=== PATIENT | female | born 1950 | race Caucasian/White ===

== ENCOUNTER 2019-07-14 07:00 | Inpatient (IN) | payer MEDICARE, SELFPAY ==
[2019-07-14] VITALS (29 sets, daily range): BP systolic 116–230; BP diastolic 68–191; PULSE 67–104; RESP 14–26; TEMP 36.3–36.8; O2SAT 76–99
--- NOTE | ~2019-07-14 | CT_ITS ---
EXAMINATION: CTA chest PE protocol DATE: 07/14/2019 09:56 INDICATION: Shortness of breath. Hypoxia. TECHNIQUE: Computed tomography angiography (CTA) of the chest was performed with 100 mL Omnipaque-350 intravenous contrast timed to evaluate the pulmonary arteries. Coronal maximum intensity projection 3D-reconstructions were created by the technologist. Automated exposure control and iterative reconst ruction technique were employed. Exam dose: 1026.94 mGy-cm total exam DLP. COMPARISON: 07/12/2019 portable AP chest FINDINGS: There is moderate opacification the pulmonary arteries and no evidence of pulmonary embolis m. No thoracic aortic aneurysm or dissection. Borderline heart size. No pericardial or pleural effusion. No hilar or mediastinal mass lesion or lymphadenopathy. There is mild atelectasis in the lingula and both lower lobes. Postoperative changes of the stomach. Status post cholecystectomy. Diffuse idiopathic skeletal hyperostosis of the thoracic spine. IMPRESSION: No evidence of pulmonary embolism Mild atelectasis in the lower lung zones Reviewed, dictated and finalized at [facility]. Reviewed, dictated and finalized at [facility].
--- NOTE | ~2019-07-14 | XR_ITS ---
XR chest 1V portable DATE: 07/14/2019 08:04 INDICATION: Respiratory failure TECHNIQUE: Portable upright AP chest on 07/14/2019 at 0800 hours COMPARISON: None FINDINGS: There may be mild infiltrate or atelectasis in the lower lung zones; otherwise no pulmonary infiltrate or consolidation, pleural effusion or pulmonary vascular congestion or pneumothorax is ev ident. Heart size is not optimally evaluated on AP projection. Diffuse idiopathic skeletal hyperostosis of the thoracic spine. IMPRESSION: Mild infiltrate or atelectasis may be present in the lower lung zones; limited portable e xamination Reviewed, dictated and finalized at location [facility]. IMPRESSION: Mild infiltrate or atelectasis may be present in the lower lung zon es; limited portable examination
--- NOTE | ~2019-07-14 | XR_ITS ---
XR chest 2V DATE: 07/16/2019 13:50 INDICATION: Hypoxia, acute respiratory failure TECHNIQUE: PA and lateral views COMPARISON: 07/14/2019 portable AP chest 07/14/2019 CT pulmonary scan FINDINGS: Borderline heart size. There is infiltrate, atelectasis and/or scarring of the middle lobe. No pulmonary infiltrate or consolidation, pulmonary vascular congestion or pleural effusion or pneumo thorax. Postoperative changes in the left upper quadrant. There is diffuse idiopathic skeletal hyperostosis of the thoracic spine. IMPRESSION: Mild infiltrate, atelectasis and/or scarring of middle lobe; otherwise no active pulmonar y disease or significant change since 07/14/2019 Reviewed, dictated and finalized at location [facility]. IMPRESSION: Mild infiltrate, atelectasis and/or scarring of middle lobe; otherw ise no active pulmonary disease or significant change since 07/14/2019
--- NOTE | 2019-07-14 07:14 | ECG_ITS ---
Measurements Intervals [place] Rate: 86 P: 54 OH: 194 QRS: -40 QRSD: 98 T: 74 QT: 327 QTc: 392 Interpretive Statements SINUS RHYTHM WITH SINUS ARRHYTHMIA LEFT AXIS DEVIATION DELAYED PRECORDIAL R/S TRANSITION VOLTAGE CRITERIA FOR LVH BORDERLINE ST-T WAVE ABNORMALITY- LATERAL LEADS BASELINE ARTIFACT- II, III, AVL, AVF BORDERLINE ECG Electronically Signed On 07-14-2019 9:34:29 CDT by Tk Ray D.O.
--- NOTE | 2019-07-14 07:16 | ED.SOB ---
HPI - SOB/Dyspnea General Chief Complaint: Shortness of Breath/Dyspnea Stated Complaint: SOB Time Seen by Provider: 07/14/19 07:03 Source: patient Mode of arrival: ambulatory Limitations: no limitations History of Present Illness HPI Narrative: 68 yo female with h/o HTN, DM who presents with c/o cough and sob. PAtient states she has been having gradually worsening sob over the past 1.5 weeks. Prior to this she reports she had cold and cough symptoms. She has been unable to sleep due to worsening sob and cough with laying flat. She has been having nausea and vomiting for the past 2 days. She also reports constant pain across her chest that is worse with cough. She reports she had pneumonia 2 years ago, and it presented in a similar fashion. She does not know if she has fever but she reports sweating. She denies history of heart disease, asthma or COPD. She is 76% on room air on arrival to ER. MD elicited complaint: shortness of breath and cough Pertinent past history: pneumonia Onset (ago): week(s) Context: recent illness Timing: progressively worsening Exacerbating factors: lying flat Associated symptoms: chest pain, cough, wheezing, diaphoresis, nausea/vomiting and chest congestion Related Data Home Medications Medication Instructions Recorded Confirmed valsartan 160 mg PO BID 07/14/19 07/14/19 Allergies Allergy/AdvReac Type Severity Reaction Status Date / Time codeine Allergy Unknown Swelling Verified 07/14/19 07:36 of Lip/Tongue/Throat Review of Systems Review of Systems: All systems reviewed & are unremarkable except as noted in HPI and below Constitutional: Constitutional: Reports chills, Reports excessive sweating, Reports fatigue and Reports poor appetite ENT: Reports nasal congestion Cardiovascular: Cardiovascular: Reports chest pain and Denies radiating jaw, neck or arm pain Respiratory: Respiratory: Reports chest congestion, Reports cough, Reports dyspnea and Reports wheezing Gastrointestinal: Gastrointestinal: Reports nausea and Reports vomiting Neurologic: Reports weakness PMFSH Past Medical History Medical History (Updated 07/14/19 @ 17:39 by Soraya Plunkett MD) Essential (primary) hypertension Skin cyst L axilla Surgical History Surgical History (Updated 07/14/19 @ 12:12 by Deisi Crocker PA-C) H/O gastric bypass H/O: hysterectomy History of cholecystectomy Hx of appendectomy Knee joint replacement status Family History Family History (Updated 07/14/19 @ 12:12 by Deisi Crocker PA-C) Father Diabetes mellitus Family history of coronary artery disease Daughter Acute myocardial infarction Under the age of 50. Smoker Social History Social History (Updated 07/14/19 @ 12:13 by Deisi Crocker PA-C) Social History: Patient has never smoked cigarettes and does not participate and marijuana. She does not drink alcohol. 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 If she was unable to make decisions she would like Karishma Mcdonald, her daughter, to make decisions for her Smoking status: Never smoker Alcohol intake: never Substance use: never Gender identity (if verbalized by the patient): Female Spiritual care concerns: No Agree to blood products: Yes Exam Const: General: alert and ill appearing acutely Orientation/consciousness: patient oriented x3 Eyes: Conjunctivae: conjunctivae normal Pupils: Equal, round and reactive pupils present Chest: Chest palpation & inspection: normal inspection of the chest Resp: Effort & Inspection: labored and tachypneic Auscultation: wheezes expiratory wheezes and throughout Cardio: Rate: regular rate Rhythm: regular rhythm Heart sounds: no murmurs GI: GI Palp: Yes Soft to palpation, No Tenderness to palpation present (GI), No Guarding due to palpation present (GI) and No Rigid due to palpation Skin: General skin exam:
[2019-07-14] MEDS: ONDANSETRON INJ 4 MG/2 ML VIAL IV PUSH (07:31)
[2019-07-14] MEDS: methylPREDNISolone SOD SUCC 125 MG VIAL IV PUSH (07:31)
[2019-07-14] MEDS: ALBUTEROL SULFATE NEB 2.5 MG/0.5 ML INH 15 MG INHALATION (07:33)
[2019-07-14] MEDS: IPRATROPIUM BR 0.02% INH SOLN 0.5 MG/2.5 ML VIAL 1.5 MG INHALATION (07:34)
[2019-07-14 07:51] LABS: Alveolar/Arterial O2 Gradient 289.1 mmHg; Base Excess ABG -0.1 mEq/l (+/-2.0); Carboxyhemoglobin 0.4 % THb (0-2.0); Fractional Inspired Oxygen 60 %; HCO3 ABG 27.4 mEq/l (22.0-26.0); Methemoglobin ABG 0.3 %THb (0-1.5); Oxygen Content ABG 18.1 %vol (16.0-22.0); Oxygen Saturation ABG 93.7 % (95.0-100.0); Oxyhemoglobin 93.3 % THb (90.0-100.0); PCO2 ABG 56.8 mmHg (35.0-45.0); PO2 ABG 76.2 mmHg (80.0-100.0); PO2 FiO2 Ratio Arterial Blood 1.27 %; Total Hemoglobin 13.8 g/dL (12.0-18.0); pH ABG 7.301 (7.350-7.450)
[2019-07-14 07:52] LABS: Device NASAL CANNULA; Modified Allen's Test Pass; Site Drawn RIGHT RADIAL
[2019-07-14 07:56] LABS: Hematocrit 44.5 % (37.0-47.0); Hemoglobin 13.7 g/dL (12.0-15.0); Mean Corpuscular HGB Conc 30.8 g/dl (32-36); Mean Corpuscular Hemoglobin 26.3 pg (26-34); Mean Corpuscular Volume 85.4 fl (80-100); Mean Platelet Volume 10.8 fl (7.4-10.4); Platelet Count Result 409 k/mm3 (150-375); Red Blood Count 5.21 M/mm3 (4.2-5.4); Red Cell Distribution Width 15.4 % (11.5-14.5); White Blood Count 21.3 K/mm3 (4.5-10.0)
[2019-07-14 08:04] LABS: Prothrombin Time 12.4 Seconds (11.1-14.7)
[2019-07-14 08:05] LABS: Partial Thromboplastin Time 30.3 SECONDS (22.3-36.8)
[2019-07-14 08:07] LABS: Lactic Acid Reflex 1.5 mmol/L (0.7-2.1)
[2019-07-14 08:19] LABS: Band Neutrophils Percent 1 % (0-6); Eosinophils Absolute Manual 0.63 K/mm3 (0.02-0.5); Eosinophils Percent Manual 3 % (0-4); Lymphocytes Absolute Manual 3.19 K/mm3 (1.1-4.5); Monocytes Absolute Manual 0.85 K/mm3 (0.1-0.90); Monocytes Percent Manual 4 % (3-9); Neutrophils Absolute Manual 16.61 K/mm3 (1.7-7.2); Neutrophils Percent Manual 77 % (46-73); Platelet Estimate Increased (Adequate); Total Cells Counted 100
[2019-07-14] MEDS: LACTATED RINGERS 1,000 ML 999 ML IV CONT (08:26)
[2019-07-14 08:30] LABS: Alanine Aminotransferase 19 U/L (4-35); Albumin Level 4.1 g/dL (3.5-5.1); Alkaline Phosphatase 139 U/L (38-126); Aspartate Amino Transferase 25 U/L (14-36); Bilirubin,Total 0.5 mg/dL (0.2-1.3); Blood Urea Nitrogen 12 mg/dL (7-17); Calcium 8.7 mg/dL (8.4-10.2); Carbon Dioxide 29 mmol/L (22-30); Chloride 97 mmol/L (98-107); Estimated CRCL calculation 105 ml/min; Estimated Glomerular Filt Rate > 60; Glucose 171 mg/dL (65-105); Lipase 30 U/L (23-300); Potassium 4.1 mmol/L (3.4-5.0); Sodium 137 mmol/L (137-145)
[2019-07-14 08:41] LABS: NT Pro B Type Natriuretic Pept 101 PG/ML (5-100); Troponin I < 0.012 ng/mL (0.000-0.034)
--- NOTE | 2019-07-14 11:37 | PM.IMHP ---
H&P: HPI History of Present Illness Chief complaint: ACUTE RESPIRATORY FAILURE WITH HYPOXIA Narrative: Clemencia Figueredo is a 68 year old female who presented to the emergency room due to shortness of breath and cough that has been going on for 2 weeks. Patient states that this started 2 weeks ago and started with green sputum runny nose and inability to take deep breaths. 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 She did get her influenza shot earlier this year. She was unsure if she has had any fevers since she does not have a thermometer but felt very achy since this started this by wrist 2 weeks ago. She has been getting more and more short of breath with lesser exertion. Prior to this illness, she had not experienced any dyspnea on exertion when walking up stairs or into the grocery store. Since this started 2 weeks ago, she was been taking [id number] medications and gradually improving until couple days ago and she felt much worse. She says that her granddaughter was sick with similar symptoms a few weeks ago. Neither of them have had any domestic or international travel or any other sick contacts. Her right leg was swollen a few weeks ago after she hit it off the bathtub and shes noticed both have been a little more swollen than normal but attributes this to her sitting in the chair more since she has felt ill. The patient does not have any history of COPD, smoking, or chemical exposures. She does not take any inhalers and has never been diagnosed with CHF or COPD. She is feeling much better on the BiPAP now. She does state that 2 years ago she had pneumonia and it felt very similar to this. She is not on any immunosuppressive therapy nor does she have concerns for HIV. She denies diarrhea or constipation and is having regular bowel movements. She states that other than this, she is generally pretty healthy and has never had a blood clot. She denies rashes, wounds, dysuria, nausea, or vomiting. No pressure like chest, pain, just pain with breathing. Review of Systems Review of Systems: All systems reviewed & are unremarkable except as noted in HPI and below PMFSH Past Medical History Medical History (Updated 07/14/19 @ 11:39 by Deisi Crocker PA-C) Essential (primary) hypertension Skin cyst L axilla Surgical History Surgical History (Updated 07/14/19 @ 12:12 by Deisi Crocker PA-C) H/O gastric bypass H/O: hysterectomy History of cholecystectomy Hx of appendectomy Knee joint replacement status Family History Family History (Updated 07/14/19 @ 12:12 by Deisi Crocker PA-C) Father Diabetes mellitus Family history of coronary artery disease Daughter Acute myocardial infarction Under the age of 50. Smoker Social History Social History (Updated 07/14/19 @ 12:13 by Deisi Crocker PA-C) Social History: Patient has never smoked cigarettes and does not participate and marijuana. She does not drink alcohol. 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 If she was unable to make decisions she would like Karishma Mcdonald, her daughter, to make decisions for her Smoking status: Never smoker Alcohol intake: never Substance use: never Gender identity (if verbalized by the patient): Female Spiritual care concerns: No Agree to blood products: Yes Meds Home Medications and Allergies Home Medications Medication Instructions Recorded Confirmed Type metformin 500 mg tablet 500 mg PO DAILY #90 tablet 05/24/19 Rx valsartan 160 mg PO BID 07/14/19 History Allergies Allergy/AdvReac Type Severity Reaction Status Date / Time codeine Allergy Unknown Swelling Verified 07/14/19 07:36 of Lip/Tongue/Throat Vital Signs Vital Signs - 24 hr 07/14/19 07:02 07/14/19 07:06 07/14/19 07:07 Temperature 98.3 F Pulse Rate 91 79 Respiratory Rate 26 H 22
--- NOTE | 2019-07-14 11:48 | ADMGEN ---
This patient, Clemencia Figueredo, was admitted to IMU Room 201-01. Patient/family oriented to hospital policies and general routines including ID bracelet, bed and alarms, visiting hours, pain management, procedures, bathroom and other care routines, personal items, smoking policy, room service/diet, and visiting hours. Valuables list has been completed. Information on how to activate the Rapid Response Team has been discussed. Patient/Family are encouraged to report perceived risks to care and to ask questions if they do not understand what they are told or what they should do.
[2019-07-14 12:27] LABS: Alveolar/Arterial O2 Gradient 235.8 mmHg; Base Excess ABG -3.1 mEq/l (+/-2.0); Carboxyhemoglobin 0.3 % THb (0-2.0); Fractional Inspired Oxygen 50 %; HCO3 ABG 22.5 mEq/l (22.0-26.0); Methemoglobin ABG 0.2 %THb (0-1.5); Oxygen Content ABG 17.6 %vol (16.0-22.0); Oxygen Saturation ABG 93.9 % (95.0-100.0); Oxyhemoglobin 92.5 % THb (90.0-100.0); PCO2 ABG 42.5 mmHg (35.0-45.0); PO2 ABG 72.9 mmHg (80.0-100.0); PO2 FiO2 Ratio Arterial Blood 1.46 %; Total Hemoglobin 13.5 g/dL (12.0-18.0); pH ABG 7.342 (7.350-7.450)
[2019-07-14 12:28] LABS: Device BIPAP; Modified Allen's Test Pass; Site Drawn LEFT RADIAL
[2019-07-14 12:29] LABS: Expiratory Pressure 8 cmH2O; Inspiratory Pressure 14 cmH2O
[2019-07-14] MEDS: methylPREDNISolone SOD SUCC 125 MG VIAL 60 MG IV PUSH ×3 (12:33→23:41)
[2019-07-14 12:48] LABS: Creatine Kinase 130 U/L (30-135)
[2019-07-14 13:00] LABS: Glucose Point of Care 215 (65-105)
[2019-07-14] MEDS: IPRATROPIUM BR 0.02% INH SOLN 0.5 MG/2.5 ML VIAL INHALATION ×2 (15:10→20:50)
[2019-07-14] MEDS: ALBUTEROL SULFATE NEB 2.5 MG/0.5 ML INH 5 MG INHALATION ×2 (15:10→20:50)
[2019-07-14] MEDS: VALSARTAN 160 MG TABLET PO (17:25)
[2019-07-14 17:30] LABS: Glucose Point of Care 221 (65-105)
[2019-07-14] MEDS: INSULIN ASPART (*BKC) 100 UNITS/ML SUB-Q (17:55)
[2019-07-14 21:43] LABS: Glucose Point of Care 192 (65-105)
[2019-07-15] VITALS (26 sets, daily range): BP systolic 121–172; BP diastolic 59–86; PULSE 54–99; RESP 15–26; TEMP 36.2–36.7; O2SAT 90–97
--- NOTE | 2019-07-15 | ECHO_ITS ---
Patient Info Name: Clemencia Figueredo Age: 68 years : 1950 Gender: Female Ht: 65 in Wt: 306 lbs BSA: 2.61 m2 HR: 92 bpm BP: 127 / 71 mmHg Heart Rhythm: Sinus Rhythm Technical Quality: Fair Exam Date: 07/15/2019 10:15 AM Exam Location: [facility] Patient Status: Inpatient Admit Date: 07/14/2019 Staff Ordering Physician: Deisi Crocker PA-C Mechanical Maintenance Supervisor: Contreras Zurita RDCS Attending Provider: Micaela Liriano MD Referring Physician: Lizzette SMITH; Exam Type: CA echo dop color flow w con Study Info Indications R06.02 - Shortness of breath Complete two-dimensional, color flow and Doppler transthoracic echocardiogram is performed with contrast to opacify the left ventrical and to improve the deliniation of the left ventrical endocarial boarders. Contrast/Agitated Saline Contrast/Ag. Saline: Definity Amount: 2.00 ml Administered By: Blair Bradley RN Existing IV Access: Yes History/Risk Factors EKG changes, SOB, edema, acute repsiratory failure w/ hypoxia. Summary 1. Left ventricular chamber dimension is normal. 2. Definity contrast administered improved wall motion interpretation. 3. Left ventricular systolic function is hyperdynamic, estimated at >70%. 4. There is mildly increased left ventricular wall thickness. 5. The left ventricular diastolic function is grade I diastolic dysfunction. 6. E/e' 11 is mildly elevated. 7. Moderate pulmonary hypertension, estimated pulmonary arterial systolic pressure is 58 mmHg. Left Ventricle Definity contrast administered improved wall motion interpretation. E/e' 11 is mildly elevated. Left ventricular chamber dimension is normal. Left ventricular systolic function is hyperdynamic, estimated at >70%. There is mildly increased left ventricular wall thickness. The left ventricular diastolic function is grade I diastolic dysfunction. Right Ventricle Right ventricular chamber dimension is normal. Right ventricular systolic function is normal. Left Atria Left atrial chamber dimension is normal. Right Atria Right atrial chamber dimension is normal. Aortic Valve Cannot determine number of aortic valve leaflets. The aortic valve is not well visualized. There is no aortic valve stenosis. There is no aortic valve regurgitation. Pulmonic Valve There is no pulmonic regurgitation. Mitral Valve There is no mitral valve stenosis. There is no mitral valve regurgitation. Tricuspid Valve There is no tricuspid valve regurgitation. Moderate pulmonary hypertension, estimated pulmonary arterial systolic pressure is 58 mmHg. Pericardium/Pleural There is no pericardial effusion. Aorta The aortic root size at the sinus of Valsalva is normal. Left Ventricular Outflow Tract Name Value Normal LVOT 2D LVOT Diameter 2.03 cm LVOT Doppler LVOT Peak Gradient 13 mmHg LVOT Mean Gradient 7 mmHg LVOT VTI 36.93 cm LVOT VTI/AV VTI Ratio 0.82 LVOT Stroke Volume
[2019-07-15] MEDS: IPRATROPIUM BR 0.02% INH SOLN 0.5 MG/2.5 ML VIAL INHALATION ×4 (02:43→20:15)
[2019-07-15] MEDS: ALBUTEROL SULFATE NEB 2.5 MG/0.5 ML INH 5 MG INHALATION ×4 (02:43→20:15)
[2019-07-15 04:54] LABS: Basophils Percent Auto 0.2 % (0.2-1.2); Hemoglobin 12.1 g/dL (12.0-15.0); Immature Granulocyte Absolute 0.21 K/mm3 (0.00-0.031); Lymphocytes Absolute Auto 1.02 K/mm3 (0.9-3.2); Lymphocytes Percent Auto 4.9 % (18.3-44.2); Mean Corpuscular Hemoglobin 26.8 pg (26-34); Mean Corpuscular Volume 86.3 fl (80-100); Mean Platelet Volume 10.9 fl (7.4-10.4); Monocytes Absolute Auto 0.4 K/mm3 (0.1-0.6); Monocytes Percent Auto 1.7 % (2.6-8.5); Neutrophils Percent Auto 92.2 % (45.5-73.1); Platelet Count Result 363 k/mm3 (150-375); Red Blood Count 4.52 M/mm3 (4.2-5.4); Red Cell Distribution Width 15.8 % (11.5-14.5); White Blood Count 20.7 K/mm3 (4.5-10.0)
[2019-07-15 05:04] LABS: Alveolar/Arterial O2 Gradient 155.9 mmHg; Base Excess ABG 3.6 mEq/l (+/-2.0); Carboxyhemoglobin 0.3 % THb (0-2.0); Fractional Inspired Oxygen 50 %; HCO3 ABG 31.1 mEq/l (22.0-26.0); Methemoglobin ABG 0.3 %THb (0-1.5); Oxygen Content ABG 17.8 %vol (16.0-22.0); Oxygen Saturation ABG 98.4 % (95.0-100.0); PO2 ABG 132.1 mmHg (80.0-100.0); PO2 FiO2 Ratio Arterial Blood 2.64 %; Reduced Hemoglobin 2.4 %THb (0-5.0); Total Hemoglobin 12.9 g/dL (12.0-18.0); pH ABG 7.326 (7.350-7.450)
[2019-07-15 05:07] LABS: PCO2 ABG 60.9 mmHg (35.0-45.0)
[2019-07-15 05:08] LABS: Device NON-INVASIVE VENT; Modified Allen's Test Pass; Non-Invasive Expiratory Pressure 8 CMH2O; Non-Invasive Inspiratory Pressure 14 CMH2O; Non-Invasive Vent Rate 4 /MIN; Site Drawn RIGHT RADIAL
[2019-07-15 05:09] LABS: Alanine Aminotransferase 18 U/L (4-35); Alkaline Phosphatase 124 U/L (38-126); Aspartate Amino Transferase 23 U/L (14-36); Bilirubin,Total 0.3 mg/dL (0.2-1.3); Blood Urea Nitrogen 18 mg/dL (7-17); Calcium 9.1 mg/dL (8.4-10.2); Carbon Dioxide 29 mmol/L (22-30); Chloride 100 mmol/L (98-107); Estimated CRCL calculation 108 ml/min; Estimated Glomerular Filt Rate > 60; Glucose 209 mg/dL (65-105); Potassium 4.4 mmol/L (3.4-5.0); Sodium 136 mmol/L (137-145)
[2019-07-15] MEDS: methylPREDNISolone SOD SUCC 125 MG VIAL 60 MG IV PUSH ×3 (06:15→16:34)
[2019-07-15] MEDS: INSULIN ASPART (*BKC) 100 UNITS/ML SUB-Q ×2 (09:15→12:52)
[2019-07-15] MEDS: VALSARTAN 160 MG TABLET PO ×2 (09:15→16:34)
[2019-07-15 09:36] LABS: Glucose Point of Care 217 (65-105)
--- NOTE | 2019-07-15 11:44 | PM.IMPN ---
Progress Note: A&P Assessment and Plan (1) Acute respiratory failure with hypoxia and hypercapnia: Code(s): J96.01 - Acute respiratory failure with hypoxia; J96.02 - Acute respiratory failure with hypercapnia Status: Acute Assessment and Plan: Recent upper respiratory infections times the past 2 weeks with worsening in the few days prior to presentation. CTA chest with no PE or pneumonia. Patient was hypoxic on presentation. Clinically now does appear to have pneumonia. Given current circumstances, viral workup initiated as per IDPH with results pending. PCO2 did slightly rise back up to 60.9 today but is currently awake and alert on 5 L oxygen. Will continue nebulizer treatments. Continue IV antibiotics and IV steroids. Wean oxygen as tolerated. Will still have BiPAP available as needed. Telemetry reviewed on 07/15/2019 with mild tachycardia. If patient continues to do well, hopeful transfer to medical floor this afternoon. (2) Pneumonia: Qualifiers: Pneumonia type: due to unspecified organism Laterality: unspecified laterality Lung location: unspecified part of lung Qualified Code(s): J18.9 - Pneumonia, unspecified organism Code(s): J18.9 - Pneumonia, unspecified organism Status: Acute Assessment and Plan: Imaging did not show pneumonia on presentation but clinically patient does have at this time. Will continue respiratory treatments along with IV ceftriaxone and azithromycin. Will continue to monitor. Currently on 5 L oxygen. (3) Respiratory acidosis: Code(s): E87.2 - Acidosis Status: Acute Assessment and Plan: Result of respiratory infection as noted above. Continue above treatment. (4) Leukocytosis: Qualifiers: Leukocytosis type: unspecified Qualified Code(s): D72.829 - Elevated white blood cell count, unspecified Code(s): D72.829 - Elevated white blood cell count, unspecified Status: Acute Assessment and Plan: WBC better at 20.7 today. Interestingly, patient states she has been told by her primary physician she always has a mildly elevated WBC. Will follow with treatment. (5) Essential (primary) hypertension: Code(s): I10 - Essential (primary) hypertension Status: Acute Assessment and Plan: Blood pressure reviewed on 07/15/2019 with occasional elevation. Will continue to monitor. Will continue home valsartan. Adjust treatment as needed. (6) History of prediabetes: Code(s): Z87.898 - Personal history of other specified conditions Status: Acute Assessment and Plan: Known history. Glucose reviewed on 07/15/2019 and now increasing. Will resume home metformin. Sliding scale insulin available as needed. Continue to monitor. (7) DVT prophylaxis: Code(s): Z29.9 - Encounter for prophylactic measures, unspecified Status: Acute Assessment and Plan: SCDs. Time Spent With Patient Time with patient: 15 - 25 minutes Subjective Date/time seen: 07/15/19 11:44 Interval history: Date of Service: 07/15/2019. Admitted with acute respiratory failure with acute upper respiratory infection. Patient is still coughing but feeling better. No current shortness of breath. No chest pain. No shortness of breath. No abdominal pain. No nausea or vomiting. No history known respiratory illnesses but has been around smokers for her lifetime. Review of Systems Review of Systems: Narrative: Feeling better. Constitutional: Constitutional: Denies chills and Denies fever(s) ENT: Denies dysphagia Cardiovascular: Cardiovascular: Denies chest pain Respiratory: Respiratory: Reports cough and Denies dyspnea Gastrointestinal: Gastrointestinal: Denies abdominal pain, Denies nausea and Denies vomiting Genitourinary: Genitourinary: Reports no additional female genitourinary complaints Musculoskeletal: Musculoskeletal: Reports no additional musculoskeletal complaints Integu
[2019-07-15 12:23] LABS: Glucose Point of Care 259 (65-105)
[2019-07-15] MEDS: metFORMIN HCL 500 MG TABLET PO (12:52)
[2019-07-15 19:19] LABS: Glucose Point of Care 189 (65-105)
[2019-07-15 20:18] LABS: Glucose Point of Care 267 (65-105)
--- NOTE | 2019-07-15 22:10 | PC.NURSE ---
assumed care for this pt at 2200.
[2019-07-16] VITALS (17 sets, daily range): BP systolic 112–167; BP diastolic 46–85; PULSE 66–108; RESP 16–20; TEMP 36.1–36.9; O2SAT 91–96
[2019-07-16] MEDS: methylPREDNISolone SOD SUCC 125 MG VIAL 60 MG IV PUSH ×4 (00:25→20:46)
[2019-07-16] MEDS: IPRATROPIUM BR 0.02% INH SOLN 0.5 MG/2.5 ML VIAL INHALATION ×4 (01:45→19:20)
[2019-07-16] MEDS: ALBUTEROL SULFATE NEB 2.5 MG/0.5 ML INH 5 MG INHALATION ×4 (01:45→19:20)
[2019-07-16] MEDS: GUAIFENESIN/DEXTROMETHORPHAN 10 ML UDC 5 ML PO ×3 (03:57→20:46)
[2019-07-16 04:52] LABS: Mean Corpuscular HGB Conc 30.8 g/dl (32-36); Mean Corpuscular Hemoglobin 26.7 pg (26-34); Mean Corpuscular Volume 86.9 fl (80-100); Mean Platelet Volume 11.1 fl (7.4-10.4); Platelet Count Result 382 k/mm3 (150-375); Red Blood Count 4.49 M/mm3 (4.2-5.4); Red Cell Distribution Width 15.7 % (11.5-14.5)
[2019-07-16 05:07] LABS: Blood Urea Nitrogen 28 mg/dL (7-17); Carbon Dioxide 28 mmol/L (22-30); Chloride 101 mmol/L (98-107); Estimated CRCL calculation 94 ml/min; Estimated Glomerular Filt Rate > 60; Glucose 218 mg/dL (65-105); Potassium 4.2 mmol/L (3.4-5.0); Sodium 138 mmol/L (137-145)
[2019-07-16 08:30] LABS: Glucose Point of Care 227 (65-105)
[2019-07-16] MEDS: metFORMIN HCL 500 MG TABLET PO (08:47)
[2019-07-16] MEDS: VALSARTAN 160 MG TABLET PO ×2 (08:47→17:35)
[2019-07-16] MEDS: INSULIN ASPART (*BKC) 100 UNITS/ML SUB-Q ×2 (08:49→12:07)
[2019-07-16 09:10] LABS: Legionella pneumophila Ag Ur Not Detected (Not Detected)
--- NOTE | 2019-07-16 12:03 | PM.IMPN ---
Progress Note: A&P Assessment and Plan (1) Acute respiratory failure with hypoxia and hypercapnia: Code(s): J96.01 - Acute respiratory failure with hypoxia; J96.02 - Acute respiratory failure with hypercapnia Status: Acute Assessment and Plan: CTA chest with no PE or pneumonia. Patient was hypoxic on presentation. Clinically does appear to have pneumonia. Given current circumstances, viral workup initiated as per IDPH with results pending. Did not require BiPAP last night. Now on 2 L oxygen. Continue IV antibiotics. Will start weaning IV steroids. Wean oxygen as tolerated. Telemetry reviewed on 07/16/2019 with sinus rhythm. Will transfer to medical floor as stable. (2) Pneumonia: Qualifiers: Pneumonia type: due to unspecified organism Laterality: unspecified laterality Lung location: unspecified part of lung Qualified Code(s): J18.9 - Pneumonia, unspecified organism Code(s): J18.9 - Pneumonia, unspecified organism Status: Acute Assessment and Plan: Imaging did not show pneumonia on presentation but clinically patient does have at this time. Will continue respiratory treatments along with IV ceftriaxone and azithromycin. On 2 L oxygen as noted above. Urine Legionella antigen negative. Will recheck chest xray today. (3) Respiratory acidosis: Code(s): E87.2 - Acidosis Status: Acute Assessment and Plan: Result of respiratory infection as noted above. Continue above treatment. (4) Leukocytosis: Qualifiers: Leukocytosis type: unspecified Qualified Code(s): D72.829 - Elevated white blood cell count, unspecified Code(s): D72.829 - Elevated white blood cell count, unspecified Status: Acute Assessment and Plan: WBC increased to 28.0 today but has been on steroids. Interestingly, patient states she has been told by her primary physician she always has a mildly elevated WBC. Will follow with treatment. (5) Essential (primary) hypertension: Code(s): I10 - Essential (primary) hypertension Status: Acute Assessment and Plan: Blood pressure reviewed on 07/16/2019. Still with some elevated readings but on steroids. Will continue home valsartan. Continue to monitor. Anticipate should decrease with decrease in steroids but may need additional medication if remains elevated. (6) History of prediabetes: Code(s): Z87.898 - Personal history of other specified conditions Status: Acute Assessment and Plan: Known history. Glucose reviewed on 07/16/2019. Glucose in 200s. Will continue home metformin. Sliding scale insulin available as needed. Continue to monitor. (7) DVT prophylaxis: Code(s): Z29.9 - Encounter for prophylactic measures, unspecified Status: Acute Assessment and Plan: SCDs. Time Spent With Patient Time with patient: 15 - 25 minutes Subjective Date/time seen: 07/16/19 12:03 Interval history: Date of Service: 07/16/2019. Admitted with acute respiratory failure with acute upper respiratory infection. Sitting on side of bed. Still has cough. Shortness of breath with exertion improving. Did not need BiPAP last night. No chest pain. No abdominal pain. Review of Systems Constitutional: Constitutional: Denies chills and Denies fever(s) ENT: Denies dysphagia Cardiovascular: Cardiovascular: Denies chest pain Respiratory: Respiratory: Reports cough and Reports dyspnea on exertion (improving) Gastrointestinal: Gastrointestinal: Denies abdominal pain, Denies dysphagia, Denies nausea and Denies vomiting Genitourinary: Genitourinary: Reports no additional female genitourinary complaints Musculoskeletal: Musculoskeletal: Reports no additional musculoskeletal complaints Integumentary/Breasts: Skin/Breast: Denies rash Neurologic: Denies confusion and Denies headache(s) Psychiatric: Psychiatric: Denies anxiety, Denies confusion and Denies depression Ex
[2019-07-16 12:09] LABS: Glucose Point of Care 255 (65-105)
--- NOTE | 2019-07-16 14:31 | PC.NURSE ---
This patient, Clemencia Figueredo, was transferred to [[id number]] on 07/16/19 at 1431. Personal belongings sent with patient. Belongings list checked and signed with receiving [ ]. Report given to [LULA COLMENARES]. Appropriate documentation sent with patient.
--- NOTE | 2019-07-16 14:56 | PC.NURSE ---
This patient, Clemencia Figueredo, was received from IMU on 07/16/19 at 1450. Personal belongings list checked and signed. Patient/family oriented to unit policies and routines
[2019-07-16 17:38] LABS: Glucose Point of Care 190 (65-105)
[2019-07-16 20:08] LABS: Glucose Point of Care 275 (65-105)
[2019-07-16] MEDS: ACETAMINOPHEN 325 MG TABLET 650 MG PO (20:45)
[2019-07-17] VITALS (12 sets, daily range): BP systolic 115–174; BP diastolic 42–93; PULSE 66–81; RESP 16–20; TEMP 36.1–36.4; O2SAT 92–98
[2019-07-17] MEDS: ALBUTEROL SULFATE NEB 2.5 MG/0.5 ML INH 5 MG INHALATION ×4 (01:03→22:04)
[2019-07-17] MEDS: IPRATROPIUM BR 0.02% INH SOLN 0.5 MG/2.5 ML VIAL INHALATION ×4 (01:03→22:04)
[2019-07-17] MEDS: ACETAMINOPHEN 325 MG TABLET 650 MG PO (03:14)
[2019-07-17] MEDS: GUAIFENESIN/DEXTROMETHORPHAN 10 ML UDC 5 ML PO ×2 (03:14→17:37)
[2019-07-17 05:12] LABS: Hematocrit 37.5 % (37.0-47.0); Hemoglobin 11.7 g/dL (12.0-15.0); Mean Corpuscular HGB Conc 31.2 g/dl (32-36); Mean Corpuscular Hemoglobin 26.5 pg (26-34); Mean Corpuscular Volume 84.8 fl (80-100); Mean Platelet Volume 10.6 fl (7.4-10.4); Platelet Count Result 365 k/mm3 (150-375); Red Blood Count 4.42 M/mm3 (4.2-5.4); Red Cell Distribution Width 15.7 % (11.5-14.5); White Blood Count 19.6 K/mm3 (4.5-10.0)
[2019-07-17 05:43] LABS: Blood Urea Nitrogen 28 mg/dL (7-17); Carbon Dioxide 31 mmol/L (22-30); Chloride 101 mmol/L (98-107); Estimated CRCL calculation 94 ml/min; Estimated Glomerular Filt Rate > 60; Glucose 260 mg/dL (65-105); Potassium 4.3 mmol/L (3.4-5.0); Sodium 135 mmol/L (137-145)
[2019-07-17 07:54] LABS: Glucose Point of Care 233 (65-105)
[2019-07-17] MEDS: INSULIN ASPART (*BKC) 100 UNITS/ML SUB-Q ×3 (07:55→17:45)
[2019-07-17] MEDS: VALSARTAN 160 MG TABLET PO ×2 (08:22→17:36)
[2019-07-17] MEDS: metFORMIN HCL 500 MG TABLET PO (08:22)
[2019-07-17] MEDS: methylPREDNISolone SOD SUCC 125 MG VIAL 60 MG IV PUSH (08:22)
--- NOTE | 2019-07-17 11:58 | PM.IMPN ---
Progress Note: A&P Assessment and Plan (1) Acute respiratory failure with hypoxia and hypercapnia: Code(s): J96.01 - Acute respiratory failure with hypoxia; J96.02 - Acute respiratory failure with hypercapnia Status: Acute Assessment and Plan: CTA chest with no PE or pneumonia. Patient was hypoxic on presentation. Clinically does appear to have pneumonia. Given current circumstances, viral workup initiated as per [facility] with results still pending. No longer requiring BiPAP. Remains on 2 L of oxygen. Echocardiogram with EF greater than 70%, diastolic dysfunction grade 1 and moderate pulmonary hypertension. May need sleep study as an outpatient. Continue IV antibiotics. Will transition from IV steroids to oral prednisone. Continue nebulizer treatments. (2) Pneumonia: Qualifiers: Laterality: unspecified laterality Lung location: unspecified part of lung Pneumonia type: due to unspecified organism Qualified Code(s): J18.9 - Pneumonia, unspecified organism Code(s): J18.9 - Pneumonia, unspecified organism Status: Acute Assessment and Plan: Imaging did not show pneumonia on presentation but clinically patient does have at this time. Will continue respiratory treatments along with IV ceftriaxone and azithromycin. On 2 L oxygen as noted above. Urine Legionella antigen negative. Repeat chest x-ray on 07/16/2019 with mild infiltrate, atelectasis and/or scarring of middle lobe. Clinically continues to improve. (3) Leukocytosis: Qualifiers: Leukocytosis type: unspecified Qualified Code(s): D72.829 - Elevated white blood cell count, unspecified Code(s): D72.829 - Elevated white blood cell count, unspecified Status: Acute Assessment and Plan: WBC decreased back down to 19.6 today. Interestingly, patient states she has been told by her primary physician she always has a mildly elevated WBC. Will continue to follow with treatment. (4) Respiratory acidosis: Code(s): E87.2 - Acidosis Status: Acute Assessment and Plan: Result of respiratory infection as noted above. Continue above treatment. (5) Essential (primary) hypertension: Code(s): I10 - Essential (primary) hypertension Status: Acute Assessment and Plan: Blood pressure reviewed on 07/17/2019. Still with elevated readings. Continue home valsartan but will add amlodipine. Will continue to monitor. Adjust treatment as needed. (6) History of prediabetes: Code(s): Z87.898 - Personal history of other specified conditions Status: Acute Assessment and Plan: Known history. Glucose reviewed on 07/17/2019 and remaining in 200s with steroids in place. Will continue home metformin but add low-dose Lantus. Sliding scale insulin available as needed. Continue to monitor. Will check hemoglobin A1c. (7) DVT prophylaxis: Code(s): Z29.9 - Encounter for prophylactic measures, unspecified Status: Acute Assessment and Plan: SCDs. Time Spent With Patient Time with patient: 15 - 25 minutes Subjective Date/time seen: 07/17/19 11:58 Interval history: Date of Service: 07/17/2019. Admitted with acute respiratory failure with acute upper respiratory infection. Feels a little better today. Still has cough with chest pain as a result. Does still have shortness of breath but improving. No nausea or vomiting. No headache or dizziness. Review of Systems Review of Systems: Narrative: Feeling a little bit better. Constitutional: Constitutional: Denies chills and Denies fever(s) ENT: Denies dysphagia Cardiovascular: Cardiovascular: Reports chest pain (With cough) Respiratory: Respiratory: Reports cough and Reports dyspnea on exertion (improving) Gastrointestinal: Gastrointestinal: Denies abdominal pain, Denies dysphagia, Denies nausea and Denies vomiting Genitourinary: Genitourinary: Reports no additional female genitourinary comp
[2019-07-17] MEDS: AMLODIPINE BESYLATE 5 MG TABLET PO (12:23)
[2019-07-17 12:53] LABS: Glucose Point of Care 223 (65-105)
[2019-07-17 17:55] LABS: Glucose Point of Care 258 (65-105)
[2019-07-17] MEDS: INSULIN GLARGINE (*BKC) 100 UNITS/ML SUB-Q (20:16)
[2019-07-17 20:57] LABS: Glucose Point of Care 219 (65-105)
[2019-07-18] VITALS (16 sets, daily range): BP systolic 154–179; BP diastolic 79–91; PULSE 59–96; RESP 18–24; TEMP 36.2–36.4; O2SAT 85–97
[2019-07-18] MEDS: ACETAMINOPHEN 325 MG TABLET 650 MG PO (00:54)
[2019-07-18] MEDS: GUAIFENESIN/DEXTROMETHORPHAN 10 ML UDC 5 ML PO ×3 (00:54→20:41)
[2019-07-18 02:33] LABS: Pneumococcal Antigen Urine Not Detected (Not Detected)
[2019-07-18] MEDS: IPRATROPIUM BR 0.02% INH SOLN 0.5 MG/2.5 ML VIAL INHALATION ×4 (02:33→19:49)
[2019-07-18] MEDS: ALBUTEROL SULFATE NEB 2.5 MG/0.5 ML INH 5 MG INHALATION ×4 (02:33→19:48)
[2019-07-18 05:59] LABS: Hematocrit 38.6 % (37.0-47.0); Hemoglobin 12.2 g/dL (12.0-15.0); Mean Corpuscular HGB Conc 31.6 g/dl (32-36); Mean Corpuscular Hemoglobin 26.7 pg (26-34); Mean Corpuscular Volume 84.5 fl (80-100); Mean Platelet Volume 10.1 fl (7.4-10.4); Platelet Count Result 381 k/mm3 (150-375); Red Blood Count 4.57 M/mm3 (4.2-5.4); Red Cell Distribution Width 15.4 % (11.5-14.5); White Blood Count 17.2 K/mm3 (4.5-10.0)
[2019-07-18 06:01] LABS: Blood Urea Nitrogen 22 mg/dL (7-17); Calcium 8.8 mg/dL (8.4-10.2); Carbon Dioxide 34 mmol/L (22-30); Chloride 97 mmol/L (98-107); Estimated CRCL calculation 83 ml/min; Estimated Glomerular Filt Rate > 60; Glucose 181 mg/dL (65-105); Hemoglobin A1C 7.3 % (<5.7); Potassium 3.8 mmol/L (3.4-5.0); Sodium 138 mmol/L (137-145)
[2019-07-18] MEDS: AMLODIPINE BESYLATE 5 MG TABLET PO ×2 (07:58→17:39)
[2019-07-18] MEDS: VALSARTAN 160 MG TABLET PO ×2 (07:58→17:39)
[2019-07-18] MEDS: predniSONE 10 MG TABLET 40 MG PO (07:59)
[2019-07-18] MEDS: metFORMIN HCL 500 MG TABLET PO (07:59)
--- NOTE | 2019-07-18 10:00 | PM.IMPN ---
Progress Note: A&P Assessment and Plan (1) Acute respiratory failure with hypoxia and hypercapnia: Code(s): J96.01 - Acute respiratory failure with hypoxia; J96.02 - Acute respiratory failure with hypercapnia Status: Acute Assessment and Plan: CTA chest with no PE or pneumonia. Patient was hypoxic on presentation. Clinically does appear have pneumonia. Given current circumstances, viral workup initiated as per ID[facility] with results still pending. Echocardiogram with EF greater than 70%, diastolic dysfunction grade 1 and moderate pulmonary hypertension. May need sleep study as an outpatient. No longer using BiPAP for several days. Has now weaned to room air this morning. Will continue IV antibiotics as noted below along with nebulizer treatments and now tapering prednisone. Will see how she does today. Possible discharge late today but more likely tomorrow. (2) Pneumonia: Qualifiers: Laterality: unspecified laterality Lung location: unspecified part of lung Pneumonia type: due to unspecified organism Qualified Code(s): J18.9 - Pneumonia, unspecified organism Code(s): J18.9 - Pneumonia, unspecified organism Status: Acute Assessment and Plan: Imaging did not show pneumonia on presentation but clinically patient does have at this time. Will continue respiratory treatments along with IV ceftriaxone and azithromycin. Now on room air as noted above. Urine Legionella antigen negative. Repeat chest x-ray on 07/16/2019 with mild infiltrate, atelectasis and/or scarring of middle lobe. Clinically much improved. (3) Leukocytosis: Qualifiers: Leukocytosis type: unspecified Qualified Code(s): D72.829 - Elevated white blood cell count, unspecified Code(s): D72.829 - Elevated white blood cell count, unspecified Status: Acute Assessment and Plan: WBC has now decreased back down to 17.2 today. Interestingly, patient states she has been told by her primary physician she always has a mildly elevated WBC. Will continue to follow with treatment. (4) Respiratory acidosis: Code(s): E87.2 - Acidosis Status: Acute Assessment and Plan: Result of respiratory infection as noted above. Continue above treatment. (5) Essential (primary) hypertension: Code(s): I10 - Essential (primary) hypertension Status: Acute Assessment and Plan: Blood pressure reviewed on 07/18/2019 elevated readings. Will advance amlodipine. Continue valsartan. Will continue to monitor and adjust treatment as needed. (6) History of prediabetes: Code(s): Z87.898 - Personal history of other specified conditions Status: Acute Assessment and Plan: Known history. Hemoglobin A1c 7.3. Glucose reviewed on 07/18/2019 and now below 200 with low-dose Lantus started yesterday. Will continue current Lantus along with metformin. Sliding scale insulin available as needed. Will continue to monitor. (7) DVT prophylaxis: Code(s): Z29.9 - Encounter for prophylactic measures, unspecified Status: Acute Assessment and Plan: SCDs. Time Spent With Patient Time with patient: 15 - 25 minutes Subjective Date/time seen: 07/18/19 10:00 Interval history: Date of Service: 07/18/2019. Admitted with acute respiratory failure with acute upper respiratory infection. Feels better today. Still has cough with chest congestion. Shortness of breath improved. No abdominal pain. Review of Systems Review of Systems: Narrative: Feeling better today. Constitutional: Constitutional: Denies chills and Denies fever(s) ENT: Denies dysphagia Cardiovascular: Cardiovascular: Denies chest pain Respiratory: Respiratory: Reports chest congestion, Reports cough and Denies dyspnea Gastrointestinal: Gastrointestinal: Reports abdominal pain (from coughing), Denies dysphagia, Denies nausea and Denies vomiting Genitourinary: Genitourinary: Reports no additi
[2019-07-18 10:18] LABS: Glucose Point of Care 154 (65-105)
[2019-07-18 14:00] LABS: Glucose Point of Care 187 (65-105)
[2019-07-18 17:19] LABS: Glucose Point of Care 235 (65-105)
[2019-07-18 17:56] LABS: Glucose Point of Care 204 (65-105)
[2019-07-18] MEDS: INSULIN ASPART (*BKC) 100 UNITS/ML SUB-Q (18:07)
[2019-07-18] MEDS: INSULIN GLARGINE (*BKC) 100 UNITS/ML SUB-Q (20:40)
[2019-07-18 21:03] LABS: Glucose Point of Care 200 (65-105)
[2019-07-19] MEDS: ALBUTEROL SULFATE NEB 2.5 MG/0.5 ML INH 5 MG INHALATION ×3 (01:50→14:30)
[2019-07-19] MEDS: IPRATROPIUM BR 0.02% INH SOLN 0.5 MG/2.5 ML VIAL INHALATION ×3 (01:50→14:30)
[2019-07-19] MEDS: GUAIFENESIN/DEXTROMETHORPHAN 10 ML UDC 5 ML PO ×2 (03:07→08:11)
[2019-07-19 05:21] LABS: Hematocrit 39.2 % (37.0-47.0); Hemoglobin 12.4 g/dL (12.0-15.0); Mean Corpuscular HGB Conc 31.6 g/dl (32-36); Mean Corpuscular Hemoglobin 26.4 pg (26-34); Mean Corpuscular Volume 83.4 fl (80-100); Mean Platelet Volume 9.9 fl (7.4-10.4); Platelet Count Result 359 k/mm3 (150-375); Red Cell Distribution Width 15.3 % (11.5-14.5); White Blood Count 18.5 K/mm3 (4.5-10.0)
[2019-07-19 05:34] LABS: Blood Urea Nitrogen 18 mg/dL (7-17); Calcium 8.7 mg/dL (8.4-10.2); Carbon Dioxide 36 mmol/L (22-30); Chloride 98 mmol/L (98-107); Estimated CRCL calculation 108 ml/min; Estimated Glomerular Filt Rate > 60; Glucose 124 mg/dL (65-105); Potassium 3.2 mmol/L (3.4-5.0); Sodium 137 mmol/L (137-145)
[2019-07-19] MEDS: metFORMIN HCL 500 MG TABLET PO (08:22)
[2019-07-19] MEDS: predniSONE 10 MG TABLET 40 MG PO (08:22)
[2019-07-19] MEDS: AMLODIPINE BESYLATE 5 MG TABLET 10 MG PO (08:22)
[2019-07-19] MEDS: VALSARTAN 160 MG TABLET PO (08:23)
[2019-07-19 08:37] VITALS: O2SAT 95
[2019-07-19 08:38] VITALS: PULSE 75; RESP 16
[2019-07-19 08:47] VITALS: PULSE 73; RESP 16
[2019-07-19 11:40] LABS: Glucose Point of Care 139 (65-105)
--- NOTE | 2019-07-19 12:00 | PM.IMPN ---
Progress Note: A&P Assessment and Plan (1) Acute respiratory failure with hypoxia and hypercapnia: Code(s): J96.01 - Acute respiratory failure with hypoxia; J96.02 - Acute respiratory failure with hypercapnia Status: Acute Assessment and Plan: CTA chest with no PE or pneumonia. Patient was hypoxic on presentation. Clinically does appear have pneumonia. Given current circumstances, viral workup initiated as per [facility] with results still pending. Echocardiogram with EF greater than 70%, diastolic dysfunction grade 1 and moderate pulmonary hypertension. May need sleep study as an outpatient. Weaned to room air yesterday morning but did require oxygen for short period time yesterday afternoon. Once again back on room air. Has been receiving nebulizer treatments and IV antibiotics. Continue tapering steroids. will discharge home today as stable. (2) Pneumonia: Qualifiers: Pneumonia type: due to unspecified organism Laterality: unspecified laterality Lung location: unspecified part of lung Qualified Code(s): J18.9 - Pneumonia, unspecified organism Code(s): J18.9 - Pneumonia, unspecified organism Status: Acute Assessment and Plan: Imaging did not show pneumonia on presentation but clinically patient does have at this time. Urine Legionella and pneumococcal antigens negative. Influenza testing negative. Repeat chest x-ray on 07/16/2019 with mild infiltrate, atelectasis and/or scarring of middle lobe. Will continue nebulizer treatments while here but send home with albuterol inhaler. Has been on IV ceftriaxone and azithromycin. Will discharge home on oral cefdinir as has completed treatment with azithromycin. (3) Leukocytosis: Qualifiers: Leukocytosis type: unspecified Qualified Code(s): D72.829 - Elevated white blood cell count, unspecified Code(s): D72.829 - Elevated white blood cell count, unspecified Status: Acute Assessment and Plan: WBC increased to 18.5 today but is on steroids. Interestingly, patient states she has been told by her primary physician she always has a mildly elevated WBC. Recheck as outpatient. (4) Hypokalemia: Code(s): E87.6 - Hypokalemia Status: Acute Assessment and Plan: Potassium 3.2 today. Will give oral replacement today. Recheck as outpatient. (5) Respiratory acidosis: Code(s): E87.2 - Acidosis Status: Acute Assessment and Plan: Result of respiratory infection as noted above. Continue above treatment. (6) Essential (primary) hypertension: Code(s): I10 - Essential (primary) hypertension Status: Acute Assessment and Plan: Blood pressure reviewed on 07/19/2019 with persistence of elevated readings. Will continue valsartan and amlodipine. Will need to follow-up as outpatient with primary provider. (7) History of prediabetes: Code(s): Z87.898 - Personal history of other specified conditions Status: Acute Assessment and Plan: Known history. Hemoglobin A1c 7.3. Glucose reviewed on 07/19/2019 with level 124 this morning. Has been receiving low-dose Lantus here. Discussed with patient. Will not sent home on Lantus as expect glucose to continue to improve with decreasing steroids and improving infection. She will continue her home metformin. She will check her blood sugar at home. She is advised to follow-up with her primary physician. (8) DVT prophylaxis: Code(s): Z29.9 - Encounter for prophylactic measures, unspecified Status: Acute Assessment and Plan: SCDs. Time Spent With Patient Time with patient: 15 - 25 minutes Subjective Date/time seen: 07/19/19 12:00 Interval history: Date of Service: 07/19/2019. Admitted with acute respiratory failure with acute upper respiratory infection. Did not sleep well last night. Otherwise feeling better. Cough still present. Denies shortness of breath and chest pain. Review of Syst
[2019-07-19 13:28] LABS: Glucose Point of Care 187 (65-105)
[2019-07-19 14:00] VITALS: BP 166/89; PULSE 84; RESP 20; TEMP 36.3; O2SAT 94
[2019-07-19] MEDS: POTASSIUM CHLORIDE 20 MEQ TABLET 40 MEQ PO (14:10)
[2019-07-19 14:30] VITALS: PULSE 72; RESP 16
[2019-07-19 14:45] VITALS: PULSE 76; RESP 16
--- NOTE | 2019-07-19 16:25 | PM.DS ---
DS: Diagnosis Admitting Diagnosis Admitting Diagnosis: Acute respiratory failure with hypoxia Discharge Diagnosis (1) Acute respiratory failure with hypoxia and hypercapnia: Code(s): J96.01 - Acute respiratory failure with hypoxia; J96.02 - Acute respiratory failure with hypercapnia Status: Acute (2) Pneumonia: Qualifiers: Laterality: unspecified laterality Lung location: unspecified part of lung Pneumonia type: due to unspecified organism Qualified Code(s): J18.9 - Pneumonia, unspecified organism Code(s): J18.9 - Pneumonia, unspecified organism Status: Acute (3) Leukocytosis: Qualifiers: Leukocytosis type: unspecified Qualified Code(s): D72.829 - Elevated white blood cell count, unspecified Code(s): D72.829 - Elevated white blood cell count, unspecified Status: Acute (4) Hypokalemia: Code(s): E87.6 - Hypokalemia Status: Acute (5) Respiratory acidosis: Code(s): E87.2 - Acidosis Status: Acute (6) Essential (primary) hypertension: Code(s): I10 - Essential (primary) hypertension Status: Acute (7) History of prediabetes: Code(s): Z87.898 - Personal history of other specified conditions Status: Acute DS: Summary Hospital Course Reason for hospitalization: Shortness of breath and cough x2 weeks. Hospital Course: Date of Service of Discharge: July 19, 2019. History of Present Illness: Patient is a 68-year-old woman with known hypertension and pre diabetes who presented to the emergency room with complaint of shortness of breath and cough x2 weeks. Patient's symptoms began 2 weeks ago with green sputum, runny nose and inability to take deep breaths. 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 She did get her influenza vaccine earlier this year. She does report feeling achy but no recorded fever as she does not have a thermometer. Patient reports increasing shortness of breath with lesser and lesser exertion. She has been trying OTC medications without improvement. She does report her granddaughter was ill with similar symptoms a few weeks ago. No recent domestic or international travel. No history of COPD, smoking or chemical exposures but she has had family members who do smoke. In the emergency room, findings were consistent with acute respiratory failure requiring BiPAP. Concern for pneumonia. Given her symptoms, she was admitted for further evaluation and treatment. Course in Hospital: On admission, patient was placed in the IMU as she was requiring BiPAP. She was started on nebulizer treatments as well as IV ceftriaxone and azithromycin for clinical pneumonia although not specifically found on imaging. In light of current Global Health situation, viral cultures were obtained which were still pending at time of discharge. Urine Legionella and pneumococcal antigens were obtained and eventually negative. Influenza screen negative. Patient was able to quickly come off BiPAP and transition to oxygen by nasal cannula. She initially started at 5 L of oxygen but gradually was able to wean down on oxygen and eventually weaned to room air on 07/18/2019. With her rapid improvement initially, she was able to transfer from the intermediate care unit to the medical floor on 07/16/2019 and remained there for the duration of her stay. In addition to her other respiratory treatments, she did also receive IV steroids transitioning to tapering prednisone on 07/18/2019. Shortness of breath steadily improved. Cough persisted for which she was given cough medication with plan to also have Tessalon Perles discharge. Patient's lung exam steadily improved with patient having no wheezing and no crackles by the time of discharge. Of note, a CTA of the chest was done given her condition with no PE found. Patient did have noted leukocytosis which improved with treatment and was decreasing at time of discharge. Patient did report history of always havin
== END 2019-07-19 18:30 | disposition home or self-care (01) | DRG 189 ==
LOC: ANHED 07:17 → ANHIMU 11:07 → ANH2MED 07-16 14:34
PROVIDERS: Physician Assistant; Admitting Provider Hospitalist; Emergency Provider General Practice; PCP Internal Medicine; Visit Provider Hospitalist
DX: J96.01 Acute respiratory failure with hypoxia (principal); J18.9 Pneumonia, unspecified organism; E87.2 Acidosis; I10 Essential (primary) hypertension; Z98.84 Bariatric surgery status; Z90.710 Acquired absence of both cervix and uterus; Z90.49 Acquired absence of other specified parts of digestive tract; Z96.659 Presence of unspecified artificial knee joint; R73.03 Prediabetes; J96.02 Acute respiratory failure with hypercapnia; E87.6 Hypokalemia
CPT/HCPCS: 36415; 36600; 71045; 71046; 71275; 80048; 80053; 82375; 82550; 82805; 83036; 83050; 83605; 83690; 83880; 84484; 85025; 85027; 85610; 85730; 87040; 87070; 87205; 87252; 87449; 87502; 87804; 87899; 93005; 94002; 94003; 94640; 96365; 96367; 96375; 99291; A9270; C8929; J0456; J0696; J1815; J2405; J2930; J7120; J7512; Q9957; Q9967

== ENCOUNTER 2019-09-11 20:12 | Emergency (ER) | payer MEDICARE, SELFPAY ==
[2019-09-11] VITALS (11 sets, daily range): BP systolic 127–152; BP diastolic 72–81; PULSE 77–90; RESP 14–20; TEMP 36.4; O2SAT 90–93
--- NOTE | 2019-09-11 20:20 | ECG_ITS ---
Measurements Intervals [place] Rate: 90 P: 21 AL: 178 QRS: -36 QRSD: 110 T: 17 QT: 351 QTc: 430 Interpretive Statements SINUS RHYTHM VENTRICULAR PREMATURE COMPLEX LEFT AXIS DEVIATION VOLTAGE CRITERIA FOR LVH BORDERLINE R WAVE PROGRESSION, ANTERIOR LEADS BASELINE ARTIFACT- I, II, III, AVR, AVL, V1 BORDERLINE ECG Electronically Signed On 09-12-2019 13:53:22 CDT by Tk Ray D.O.
[2019-09-11 20:41] LABS: Basophils Absolute Auto 0.1 K/mm3 (0.0-0.1); Basophils Percent Auto 0.4 % (0.2-1.2); Eosinophils Absolute Auto 0.5 K/mm3 (0-0.3); Eosinophils Percent Auto 3.1 % (0-4.4); Hematocrit 38.6 % (37.0-47.0); Hemoglobin 12.5 g/dL (12.0-15.0); Immature Granulocyte Absolute 0.13 K/mm3 (0.00-0.031); Immature Granulocyte Percent A 0.8 % (0-0.5); Lymphocytes Absolute Auto 3.91 K/mm3 (0.9-3.2); Lymphocytes Percent Auto 23.8 % (18.3-44.2); Mean Corpuscular HGB Conc 32.4 g/dl (32-36); Mean Corpuscular Volume 86.5 fl (80-100); Mean Platelet Volume 10.4 fl (7.4-10.4); Monocytes Percent Auto 6.1 % (2.6-8.5); Neutrophils Absolute Auto 10.8 K/mm3 (1.3-6.7); Neutrophils Percent Auto 65.8 % (45.5-73.1); Platelet Count Result 368 k/mm3 (150-375); Red Blood Count 4.46 M/mm3 (4.2-5.4); Red Cell Distribution Width 15.9 % (11.5-14.5); White Blood Count 16.4 K/mm3 (4.5-10.0)
[2019-09-11 20:53] LABS: Alanine Aminotransferase 15 U/L (4-35); Albumin Level 4.2 g/dL (3.5-5.1); Alkaline Phosphatase 117 U/L (38-126); Aspartate Amino Transferase 21 U/L (14-36); Bilirubin,Total 0.2 mg/dL (0.2-1.3); Blood Urea Nitrogen 19 mg/dL (7-17); Calcium 8.6 mg/dL (8.4-10.2); Carbon Dioxide 27 mmol/L (22-30); Chloride 105 mmol/L (98-107); Estimated CRCL calculation 94 ml/min; Estimated Glomerular Filt Rate > 60; Glucose 225 mg/dL (65-105); Lipase 62 U/L (23-300); Potassium 3.9 mmol/L (3.4-5.0); Sodium 139 mmol/L (137-145)
[2019-09-11 21:19] LABS: Add Urine Microscopic? YES; Appearance Urine Clear (Clear); Bilirubin Urine Negative (Negative); Blood Urine Negative (Negative); Color Urine Yellow (Yellow); Glucose Urine UA 1+ mg/dL (Negative); Ketones Urine Negative (Negative); Leukocyte Esterase Ur Negative LEU/UL (Negative); Mucus Urine Few /lpf; Nitrate Urine Negative (Negative); Protein Urine 2+ mg/dL (Negative); RBC Urine 0-2 /hpf (0-2); Specific Grav Ur 1.017 (1.001-1.035); Squamous Epithelial Cell Urine Rare /hpf (Few); Urobilinogen Urine Negative mg/dL (<2.0); WBC Urine 0-3 /hpf
--- NOTE | 2019-09-11 22:56 | ED.NAVMDI ---
HPI - Nausea/Vomiting/Diarrhea General Chief complaint: Nausea/Vomiting/Diarrhea Stated complaint: vomiting, lightheaded Time Seen by Provider: 09/11/19 22:47 History of Present Illness HPI Narrative: Patient presents via EMS for nausea vomiting diarrhea. The diarrhea started in the early afternoon. She had several movements none with blood. The vomiting started at 5 PM, with profuse amount of vomit, and then just dry heaves. She had some chills and sweats, felt lightheaded and had to sit on the couch. She did not faint at that time. She never had any headache abdominal pain, or chest pain. She said she had pneumonia 2 months ago, and is still hoarse from that. Does not smoke drink or do drugs. He is a retired business process analyst. She has had cholecystectomy appendectomy, bilateral knee replacement. She has not had any vomiting since she has been here or diarrhea. MD elicited complaint: nausea, vomiting and diarrhea Onset (ago): hour(s) Description of vomiting: food contents Associated nausea: Yes Associated abdominal pain: No Related Data Allergies Allergy/AdvReac Type Severity Reaction Status Date / Time codeine Allergy Unknown Swelling Verified 09/11/19 20:24 of Lip/Tongue/Throat Review of Systems Review of Systems: Narrative: CONSTITUTIONAL: Denies fever, but did have chills and sweats. EYES: Denies visual changes, redness, or discharge. ENT: Denies rhinorrhea, congestion, sore throat, or otalgia. CARDIOVASCULAR: Denies chest pain, palpitations, or edema. RESPIRATORY: Denies cough or dyspnea. GASTROINTESTINAL: Denies abdominal pain, but did have nausea, vomiting, and diarrhea. GENITOURINARY: Denies dysuria or hematuria. SKIN: Denies rash or itching. MUSCULOSKELETAL: Denies back pain, joint pain, or myalgia. NEUROLOGIC: Denies headache, numbness, or weakness. PSYCHIATRIC: Denies anxiety or depression. All systems reviewed & are unremarkable except as noted in HPI and below PMFSH Past Medical History Medical History Essential (primary) hypertension Skin cyst L axilla Surgical History Surgical History H/O gastric bypass H/O: hysterectomy History of cholecystectomy Hx of appendectomy Knee joint replacement status Family History Family History (Updated 07/14/19 @ 12:12 by Deisi Crocker PA-C) Father Diabetes mellitus Family history of coronary artery disease Daughter Acute myocardial infarction Under the age of 50. Smoker Social History Social History Social History: Patient has never smoked cigarettes and does not participate and marijuana. She does not drink alcohol. 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 If she was unable to make decisions she would like Karishma Mcdonald, her daughter, to make decisions for her Smoking status: Never smoker Alcohol intake: never Substance use: never Gender identity (if verbalized by the patient): Female Spiritual care concerns: No Agree to blood products: Yes Exam Narrative: Exam Narrative: GENERAL: Well-appearing, well-nourished, and in no acute distress. Overweight HEAD: Normocephalic, atraumatic. EYES: PERRLA and EOMI. ENT: Nares clear, no rhinorrhea or epistaxis. Mucous membranes moist. NECK: Supple. CHEST: Clear to auscultation. No respiratory distress. HEART: Regular rate and rhythm. No murmur heard. Normal peripheral pulses. ABDOMEN: Soft, nontender, nondistended, normal active bowel sounds. EXTREMITIES: Normal range of motion. Ankles and feet swollen. SKIN: Warm, dry, no rash. NEURO: No focal deficits. Alert and oriented x3. PSYCH: Normal mood and affect. Course Reevaluation(s) Reevaluation #1: Checked on her couple times she has not had any more vomiting or diarrhea. She got her fluids and's feeling better.
[2019-09-11] MEDS: SODIUM CHLORIDE 0.9% IV 1,000 ML 999 ML IV CONT (23:13)
[2019-09-11] MEDS: ONDANSETRON INJ 4 MG/2 ML VIAL IV PUSH (23:13)
[2019-09-11] MEDS: FAMOTIDINE 20 MG/2 ML VIAL IV PUSH (23:13)
--- NOTE | 2019-09-11 23:59 | PC.NURSE ---
Patient aware of need for stool sample, states she is unable to provide one at this time. Patient states she will inform this nurse when she is able to produce a stool sample.
[2019-09-12 01:52] VITALS: BP 124/75; PULSE 76; RESP 20; O2SAT 93
== END 2019-09-12 01:54 | disposition home or self-care (01) ==
PROVIDERS: Emergency Provider Emergency Medicine; PCP Internal Medicine
DX: K52.9 Noninfective gastroenteritis and colitis, unspecified (principal); D72.829 Elevated white blood cell count, unspecified; Z96.659 Presence of unspecified artificial knee joint; Z98.84 Bariatric surgery status; I49.3 Ventricular premature depolarization; R94.31 Abnormal electrocardiogram [ECG] [EKG]
CPT/HCPCS: 36415; 51701; 80053; 81001; 83690; 85025; 93005; 96361; 96374; 96375; 99284; J2405; J7030

== ENCOUNTER 2019-10-13 07:15 | Emergency (ER) | payer MEDICARE, SELFPAY ==
[2019-10-13 07:27] VITALS: BP 185/76; PULSE 74; RESP 20; TEMP 36.8; O2SAT 97
[2019-10-13] MEDS: SODIUM CHLORIDE 0.9% IV 1,000 ML 999 ML IV CONT (10:49)
[2019-10-13] MEDS: FAMOTIDINE 20 MG/2 ML VIAL IV PUSH (10:50)
[2019-10-13 10:56] VITALS: BP 137/68; PULSE 67; RESP 20; O2SAT 98
[2019-10-13 10:56] LABS: Basophils Absolute Auto 0.1 K/mm3 (0.0-0.1); Basophils Percent Auto 0.4 % (0.2-1.2); Eosinophils Absolute Auto 1.3 K/mm3 (0-0.3); Eosinophils Percent Auto 9.1 % (0-4.4); Hematocrit 42.4 % (37.0-47.0); Hemoglobin 13.5 g/dL (12.0-15.0); Immature Granulocyte Absolute 0.08 K/mm3 (0.00-0.031); Immature Granulocyte Percent A 0.6 % (0-0.5); Lymphocytes Percent Auto 20.6 % (18.3-44.2); Mean Corpuscular HGB Conc 31.8 g/dl (32-36); Mean Corpuscular Hemoglobin 27.8 pg (26-34); Mean Corpuscular Volume 87.4 fl (80-100); Mean Platelet Volume 10.4 fl (7.4-10.4); Monocytes Percent Auto 7.1 % (2.6-8.5); Neutrophils Absolute Auto 8.8 K/mm3 (1.3-6.7); Neutrophils Percent Auto 62.2 % (45.5-73.1); Platelet Count Result 403 k/mm3 (150-375); Red Blood Count 4.85 M/mm3 (4.2-5.4); Red Cell Distribution Width 15.2 % (11.5-14.5); White Blood Count 14.1 K/mm3 (4.5-10.0)
--- NOTE | 2019-10-13 11:08 | ED.GENADULT ---
HPI - General Adult General Chief complaint: Unspecified <Marvin Villegas PA-C - Last Filed: 10/13/19 12:23> Stated complaint: rash, itching <Marvin Villegas PA-C - Last Filed: 10/13/19 12:23> Time Seen by Provider: 10/13/19 10:02 <Marvin Villegas PA-C - Last Filed: 10/13/19 12:23> Source: patient <Marvin Villegas PA-C - Last Filed: 10/13/19 12:23> Mode of arrival: ambulatory <Marvin Villegas PA-C - Last Filed: 10/13/19 12:23> Limitations: no limitations <Marvin Villegas PA-C - Last Filed: 10/13/19 12:23> History of Present Illness HPI narrative: Patient is a 68-year-old female who presents to emergency department for evaluation of allergic reaction with rash with itching and blistering of the lower extremities as well as now developing on the arms is been present for 1 week has been using topical steroids and taking oral antihistamine with no improvement patient denies similar occurrence allergic contact exposures or new medications. Patient has not been seen for this complaint. Patient denies similar occurrence in the past. Patient presents per private vehicle in no distress but notes constant itching <Marvin Villegas PA-C - Last Filed: 10/13/19 12:23> Related Data Allergies/adverse reactions: Allergies Allergy/AdvReac Type Severity Reaction Status Date / Time codeine Allergy Unknown Swelling Verified 10/13/19 07:35 of Lip/Tongue/Throat <Marvin Villegas PA-C - Last Filed: 10/13/19 12:23> Review of Systems Review of Systems: All systems reviewed & are unremarkable except as noted in HPI and below <Marvin Villegas PA-C - Last Filed: 10/13/19 12:23> PMFSH Past Medical History Medical History: Medical History Anemia Anemia Essential (primary) hypertension Screening for breast cancer Screening for colon cancer Screening for osteoporosis Skin cyst L axilla <Marvin Villegas PA-C - Last Filed: 10/13/19 12:23> Surgical History Surgical History: Surgical History H/O gastric bypass H/O: hysterectomy History of cholecystectomy Hx of appendectomy Knee joint replacement status <Marvin Villegas PA-C - Last Filed: 10/13/19 12:23> Family History Family History: Family History (Updated 07/14/19 @ 12:12 by Deisi Crocker PA-C) Father Diabetes mellitus Family history of coronary artery disease Daughter Acute myocardial infarction Under the age of 50. Smoker <Marvin Villegas PA-C - Last Filed: 10/13/19 12:23> Social History Social History: Social History Social History: Patient has never smoked cigarettes and does not participate and marijuana. She does not drink alcohol. 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 If she was unable to make decisions she would like Karishma Mcdonald, her daughter, to make decisions for her Smoking status: Never smoker Alcohol intake: never Substance use: never Gender identity (if verbalized by the patient): Female Spiritual care concerns: No Agree to blood products: Yes <Marvin Villegas PA-C - Last Filed: 10/13/19 12:23> Exam Narrative: Exam Narrative: GENERAL: Well-appearing, well-nourished, and in no acute distress. HEAD: Normocephalic, atraumatic. EYES: PERRLA and EOMI. ENT: Nares clear, no rhinorrhea or epistaxis. Mucous membranes moist. Oropharynx without tonsillar hypertrophy exudate or other lesions. No angioedema or lesions in the oropharynx NECK: Supple. No adenopathy or masses. No stridor CHEST: Clear to auscultation. No respiratory distress. No wheezes rales or rhonchi HEART: Regular rate and rhythm. No murmur heard. Normal peripheral pulses. EXTREMITIES: Normal range of motion. No edema. SKIN: Warm, dry, pat
[2019-10-13 11:09] LABS: Alanine Aminotransferase 16 U/L (4-35); Albumin Level 4.3 g/dL (3.5-5.1); Alkaline Phosphatase 113 U/L (38-126); Aspartate Amino Transferase 22 U/L (14-36); Bilirubin,Total 0.4 mg/dL (0.2-1.3); Blood Urea Nitrogen 19 mg/dL (7-17); Calcium 8.8 mg/dL (8.4-10.2); Carbon Dioxide 28 mmol/L (22-30); Chloride 103 mmol/L (98-107); Estimated CRCL calculation 92 ml/min; Estimated Glomerular Filt Rate > 60; Glucose 117 mg/dL (65-105); Potassium 4.3 mmol/L (3.4-5.0); Sodium 137 mmol/L (137-145)
[2019-10-13 12:14] VITALS: BP 135/74; PULSE 64; RESP 20; O2SAT 96
--- NOTE | 2019-10-13 12:14 | PC.NURSE ---
1214 PT STATES ITCHING IS MUCH BETTER
== END 2019-10-13 12:35 | disposition home or self-care (01) ==
PROVIDERS: Emergency Medicine Emergency Medical Services; Emergency Provider Emergency Medicine; PCP Internal Medicine
DX: R21 Rash and other nonspecific skin eruption (principal); I10 Essential (primary) hypertension; Z98.84 Bariatric surgery status; Z96.659 Presence of unspecified artificial knee joint; Z86.2 Personal history of diseases of the blood and blood-forming organs and certain disorders involving the immune mechanism
CPT/HCPCS: 36415; 80053; 85025; 96361; 96374; 96375; 99284; J1100; J1200; J7030

== ENCOUNTER 2020-02-13 10:32 | Outpatient (CLI) | payer MEDICARE, SELFPAY ==
[2020-02-13 11:02] LABS: Basophils Percent Auto 0.3 % (0.2-1.2); Eosinophils Absolute Auto 0.5 K/mm3 (0-0.3); Eosinophils Percent Auto 3.9 % (0-4.4); Hematocrit 40.5 % (37.0-47.0); Hemoglobin 13.3 g/dL (12.0-15.0); Immature Granulocyte Absolute 0.07 K/mm3 (0.00-0.031); Immature Granulocyte Percent A 0.6 % (0-0.5); Lymphocytes Absolute Auto 2.53 K/mm3 (0.9-3.2); Lymphocytes Percent Auto 21.2 % (18.3-44.2); Mean Corpuscular HGB Conc 32.8 g/dl (32-36); Mean Corpuscular Hemoglobin 27.1 pg (26-34); Mean Corpuscular Volume 82.7 fl (80-100); Mean Platelet Volume 9.7 fl (7.4-10.4); Monocytes Absolute Auto 0.8 K/mm3 (0.1-0.6); Monocytes Percent Auto 6.9 % (2.6-8.5); Neutrophils Percent Auto 67.1 % (45.5-73.1); Platelet Count Result 389 k/mm3 (150-375); Red Cell Distribution Width 14.6 % (11.5-14.5); White Blood Count 11.9 K/mm3 (4.5-10.0)
[2020-02-13 11:09] LABS: Hemoglobin A1C 7.7 % (<5.7)
[2020-02-13 11:18] LABS: Alanine Aminotransferase 17 U/L (4-35); Albumin Level 4.3 g/dL (3.5-5.1); Alkaline Phosphatase 131 U/L (38-126); Anion Gap 8 mmol/L (8-16); Aspartate Amino Transferase 20 U/L (14-36); Bilirubin,Total 0.5 mg/dL (0.2-1.3); Blood Urea Nitrogen 16 mg/dL (7-17); Calcium 9.3 mg/dL (8.4-10.2); Carbon Dioxide 27 mmol/L (22-30); Chloride 104 mmol/L (98-107); Cholesterol 178 mg/dL (0-200); Estimated Glomerular Filt Rate > 60; Glucose 121 mg/dL (65-105); HDL Direct 52 mg/dL; Potassium 4.2 mmol/L (3.4-5.0); Sodium 139 mmol/L (137-145); Triglycerides 150 mg/dL (<150)
[2020-02-13 11:29] LABS: LDL Cholesterol Direct 97 mg/dL
== END 2020-02-13 10:33 | disposition home or self-care (01) ==
PROVIDERS: PCP Internal Medicine; Referring Provider Nurse Practitioner; Visit Provider Internal Medicine
DX: D64.9 Anemia, unspecified (principal); E11.9 Type 2 diabetes mellitus without complications; I10 Essential (primary) hypertension
CPT/HCPCS: 36415; 80053; 80061; 83036; 85025

== ENCOUNTER 2020-02-24 13:06 | Outpatient (CLI) | payer MEDICARE, SELFPAY ==
--- NOTE | ~2020-02-24 | XR_ITS ---
EXAMINATION: XR chest 2V DATE: 02/24/2020 13:30 INDICATION: Shortness of breath TECHNIQUE: PA and lateral views of the chest were obtained. COMPARISON: 07/16/[address] dated 07/14/2019 FINDINGS: Prominent left paracardial fat pad. Unchanged discoid atelectasis at the lingula. No new airspace opa cities, pulmonary edema, pleural effusion or pneumothorax. The cardiomediastinal silhouette is normal . Multiple surgical clips in the left upper quadrant and epigastric region. There are bridging osteop hytes at multiple levels in the spine, consistent with diffuse idiopathic skeletal hyperostosis (DISH ). IMPRESSION: 1. Chronic discoid atelectasis/scarring at the lingula. No acute cardiopulmonary disease. Reviewed, dictated and finalized at location B. IMPRESSION: 1. Chronic discoid atelectasis/scarring at the lingula. No acute cardiopulmonar y disease.
--- NOTE | 2020-02-24 13:56 | ECHO_ITS ---
Patient Info Name: Clemencia Figueredo Age: 69 years : 1950 Gender: Female Ht: 65 in Wt: 312 lbs BSA: 2.64 m2 HR: 72 bpm BP: 137 / 76 mmHg Heart Rhythm: Sinus Rhythm Technical Quality: Fair Exam Date: 02/24/2020 2:07 PM Exam Location: [facility] Patient Status: Outpatient Admit Date: 02/24/2020 Staff Ordering Physician: Christine Santamaria Ticket Broker: Genny Miles RCS Attending Provider: Christine Santamaria Referring Physician: Hina BEVERLY; Exam Type: CA echo doppler color flow Study Info Indications - sob Complete two-dimensional, color flow and Doppler transthoracic echocardiogram is performed. Summary 1. Complete two-dimensional, color flow and Doppler transthoracic echocardiogram is performed. 2. Left ventricular systolic function is normal, estimated at >70%. 3. The left ventricular diastolic function is normal. 4. No significant valvular lesions identified. 5. No echocardiographic explanation for dyspnea. Left Ventricle Left ventricular chamber dimension is normal. Left ventricular systolic function is normal, estimated at >70%. The left ventricular diastolic function is normal. Right Ventricle Right ventricular chamber dimension is normal. Left Atria Left atrial chamber dimension is normal. Right Atria Right atrial chamber dimension is normal. Aortic Valve The aortic valve is normal. Pulmonic Valve The pulmonic valve is not well visualized. Mitral Valve The mitral valve has normal leaflets. Tricuspid Valve The tricuspid valve leaflets are normal. Pericardium/Pleural The pericardium appears normal. Aorta The aortic root size at the sinus of Valsalva is normal. Left Ventricular Outflow Tract Name Value Normal LVOT 2D LVOT Diameter 2.0 cm LVOT Doppler LVOT Peak Gradient 5 mmHg LVOT Mean Gradient 3 mmHg LVOT VTI 22 cm LVOT VTI/AV VTI Ratio 0.9 LVOT Stroke Volume 70 ml LVOT CO 16.8 l/min LVOT CI 6.4 l/min/m2 Mitral Valve Name Value Normal MV Doppler MV Decel Y[place] 444 cm/s2 MV PHT 55 ms MV Area (PHT) 4.0 cm2 4.0-5.0 MV Diastolic Function MV E Peak Velocity 84 cm/s MV A Peak Velocity 102 cm/s MV E/A 0.8 MV Decel Time 188 ms Tricuspid Valve Name Value Normal
== END 2020-02-24 13:07 | disposition home or self-care (01) ==
PROVIDERS: PCP Internal Medicine; Visit Provider Nurse Practitioner
DX: R06.02 Shortness of breath (principal); I10 Essential (primary) hypertension; E11.9 Type 2 diabetes mellitus without complications; R91.8 Other nonspecific abnormal finding of lung field
CPT/HCPCS: 71046; 93306

== ENCOUNTER 2020-04-01 12:06 | Outpatient (CLI) | payer MEDICARE, SELFPAY ==
--- NOTE | 2020-04-05 08:57 | WPDPFTINT ---
PFT Interpretation PFT Interpretation: This PFT met all criteria for ATS standards and reproducibility FEV/FVC post bronchodilator 79% FEV1 91% FVC 82% TLC 90% RV 102% RV/TLC 46% DLCO 52% when adjusted for alveolar volume but not adjusted for hemoglobin Flow volume loops appeared normal Impression: No significant obstruction or restriction is present. Moderately reduced diffusion capacity is present. In the absence of anemia or pulmonary hypertension, intrinsic lung disease may be present. Clinical correlation is advised.
== END 2020-04-01 12:07 | disposition home or self-care (01) ==
PROVIDERS: PCP Internal Medicine; Visit Provider Internal Medicine
DX: R06.02 Shortness of breath (principal); E11.9 Type 2 diabetes mellitus without complications; I10 Essential (primary) hypertension
CPT/HCPCS: 94060; 94726; 94729

== ENCOUNTER 2020-06-26 08:21 | Outpatient (CLI) | payer OTHER, SELFPAY ==
[2020-06-26 09:02] LABS: Alanine Aminotransferase 18 U/L (4-35); Alkaline Phosphatase 105 U/L (38-126); Anion Gap 7 mmol/L (8-16); Aspartate Amino Transferase 20 U/L (14-36); Bilirubin,Total 0.4 mg/dL (0.2-1.3); Blood Urea Nitrogen 14 mg/dL (7-17); Carbon Dioxide 28 mmol/L (22-30); Chloride 106 mmol/L (98-107); Cholesterol 156 mg/dL (0-200); Estimated Glomerular Filt Rate > 60; Glucose 122 mg/dL (65-105); HDL Direct 59 mg/dL; Potassium 3.9 mmol/L (3.4-5.0); Sodium 141 mmol/L (137-145); Triglycerides 119 mg/dL (<150)
[2020-06-26 09:13] LABS: LDL Cholesterol Direct 73 mg/dL
[2020-06-26 09:54] LABS: Creatinine Urine 178.3 mg/dL
[2020-06-26 09:57] LABS: Microalbumin Urine Random 14.2 mg/L (0-16.7)
[2020-06-26 10:59] LABS: Hemoglobin A1C 6.6 % (<5.7)
== END 2020-06-26 08:22 | disposition home or self-care (01) ==
PROVIDERS: PCP Internal Medicine; Visit Provider Internal Medicine
DX: E11.9 Type 2 diabetes mellitus without complications (principal); I10 Essential (primary) hypertension; E78.5 Hyperlipidemia, unspecified
CPT/HCPCS: 36415; 80053; 80061; 82043; 83036

== ENCOUNTER 2020-09-11 07:39 | Outpatient (CLI) | payer OTHER, SELFPAY ==
--- NOTE | ~2020-09-11 | MM_ITS ---
EXAMINATION: MM screening [facility] BI w [facility] HISTORY: Screening mammogram TECHNIQUE: Craniocaudal and mediolateral oblique 3-D tomosynthesis images were obtained and synthetic 2-D images were generated. CAD analysis was submitted and interpreted. COMPARISON: 04/29/2019 BREAST PARENCHYMAL COMPOSITION: There are scattered areas of fibroglandular density. FINDINGS: There is no evidence of suspicious mass, calcification, or architectural distortion to sugg est malignancy in either breast. There has been no suspicious interval change. IMPRESSION: 1. No mammographic evidence of malignancy. 2. Recommend routine screening mammography in one year. BI-RADS Category 1: Negative Reviewed, dictated and finalized at location A.
== END 2020-09-11 07:40 | disposition home or self-care (01) ==
LOC: ANHIMG 07:41
PROVIDERS: PCP Internal Medicine; Visit Provider Internal Medicine
DX: Z12.31 Encounter for screening mammogram for malignant neoplasm of breast (principal); I10 Essential (primary) hypertension; E11.9 Type 2 diabetes mellitus without complications
CPT/HCPCS: 77063; 77067

== ENCOUNTER 2021-01-01 07:38 | Outpatient (CLI) | payer OTHER, SELFPAY ==
[2021-01-01 09:09] LABS: Hemoglobin A1C 6.3 % (<5.7)
[2021-01-01 09:11] LABS: Alanine Aminotransferase 19 U/L (4-35); Albumin Level 4.1 g/dL (3.5-5.1); Alkaline Phosphatase 103 U/L (38-126); Anion Gap 6 mmol/L (8-16); Aspartate Amino Transferase 22 U/L (14-36); Bilirubin,Total 0.4 mg/dL (0.2-1.3); Blood Urea Nitrogen 15 mg/dL (7-17); Calcium 9.4 mg/dL (8.4-10.2); Carbon Dioxide 26 mmol/L (22-30); Chloride 106 mmol/L (98-107); Cholesterol 159 mg/dL (0-200); Estimated Glomerular Filt Rate > 60; Glucose 117 mg/dL (65-110); HDL Direct 49 mg/dL; Potassium 4.3 mmol/L (3.4-5.0); Sodium 138 mmol/L (137-145); Triglycerides 145 mg/dL (<150)
[2021-01-01 09:22] LABS: LDL Cholesterol Direct 72 mg/dL
== END 2021-01-01 07:39 | disposition home or self-care (01) ==
LOC: ANHLAB 07:42
PROVIDERS: PCP Internal Medicine; Visit Provider Internal Medicine
DX: E11.9 Type 2 diabetes mellitus without complications (principal); I10 Essential (primary) hypertension; E78.5 Hyperlipidemia, unspecified
CPT/HCPCS: 36415; 80053; 80061; 83036

== ENCOUNTER 2021-07-15 07:34 | Outpatient (CLI) | payer OTHER, SELFPAY ==
[2021-07-15 08:03] LABS: Alanine Aminotransferase 15 U/L (4-35); Albumin Level 4.1 g/dL (3.5-5.1); Alkaline Phosphatase 106 U/L (38-126); Anion Gap 8 mmol/L (8-16); Aspartate Amino Transferase 21 U/L (14-36); Bilirubin,Total 0.5 mg/dL (0.2-1.3); Blood Urea Nitrogen 17 mg/dL (7-17); Calcium 8.7 mg/dL (8.4-10.2); Carbon Dioxide 25 mmol/L (22-30); Chloride 105 mmol/L (98-107); Cholesterol 175 mg/dL (0-200); Estimated Glomerular Filt Rate > 60; Glucose 115 mg/dL (65-110); HDL Direct 51 mg/dL; Potassium 4.5 mmol/L (3.4-5.0); Sodium 138 mmol/L (137-145); Triglycerides 149 mg/dL (<150)
[2021-07-15 08:14] LABS: LDL Cholesterol Direct 78 mg/dL
[2021-07-15 08:19] LABS: Hemoglobin A1C 6.1 % (<5.7)
== END 2021-07-15 07:35 | disposition home or self-care (01) ==
LOC: ANHLAB 07:38
PROVIDERS: PCP Internal Medicine; Visit Provider Nurse Practitioner
DX: E78.5 Hyperlipidemia, unspecified (principal); E11.9 Type 2 diabetes mellitus without complications
CPT/HCPCS: 36415; 80053; 80061; 83036

== ENCOUNTER 2022-02-04 08:00 | Outpatient (CLI) | payer OTHER, SELFPAY ==
[2022-02-04 08:50] LABS: Alanine Aminotransferase 20 U/L (6-35); Albumin Level 4.2 g/dL (3.5-5.1); Alkaline Phosphatase 123 U/L (38-126); Anion Gap 8 mmol/L (8-16); Aspartate Amino Transferase 20 U/L (14-36); Bilirubin,Total 0.6 mg/dL (0.2-1.3); Blood Urea Nitrogen 18 mg/dL (7-17); Calcium 8.9 mg/dL (8.4-10.2); Carbon Dioxide 27 mmol/L (22-30); Chloride 104 mmol/L (98-107); Cholesterol 162 mg/dL (0-200); Estimated Glomerular Filt Rate > 60; Glucose 118 mg/dL (65-110); HDL Direct 46 mg/dL; Potassium 4.7 mmol/L (3.4-5.0); Sodium 139 mmol/L (137-145); Triglycerides 137 mg/dL (<150)
[2022-02-04 09:01] LABS: LDL Cholesterol Direct 78 mg/dL
[2022-02-04 10:14] LABS: Hemoglobin A1C 6.5 % (<5.7)
== END 2022-02-04 08:01 | disposition home or self-care (01) ==
PROVIDERS: PCP Internal Medicine; Visit Provider Internal Medicine
DX: E11.9 Type 2 diabetes mellitus without complications (principal)
CPT/HCPCS: 36415; 80053; 80061; 83036

== ENCOUNTER 2022-02-14 00:23 | Day surgery (SDC) | payer OTHER, SELFPAY ==
--- NOTE | 2022-02-14 09:06 | WPDANESEPPF ---
Anes - Initial Pre Proc Eval Procedure: Operation Date: 02/14/22 10:00 Proposed Procedures p Screening Colonoscopy - Cresencio Molina MD Date/Time: 02/14/22 09:06 Surgeon: Cresencio Molina MD Pre Op Diagnosis: neoplasm screening Patient Data Age: 71 Gender: F Height: 1.65 m Weight: 131 kg Allergies Allergy/AdvReac Type Severity Reaction Status Date / Time codeine Allergy Unknown Swelling Verified 02/14/22 09:07 of Lip/Tongue/Throat Home Medications Medication Instructions Recorded Confirmed Type albuterol sulfate 90 mcg/actuation 2 puff inhalation QID PRN 07/19/19 02/11/22 Rx aerosol inhaler shortness of breath or wheezing #6.7 grams lancets 33 gauge (BD Ultra Fine #100 ea 07/19/19 02/11/22 Rx Lancets) magnesium 250 mg tablet 250 mg PO DAILY 01/15/21 02/11/22 History metformin 500 mg tablet 500 mg PO BID #180 tabs 06/01/21 02/11/22 Rx hydralazine 25 mg tablet See Rx Instructions .Route 07/06/21 02/11/22 Rx .COMPLEX #180 tabs losartan 100 mg tablet See Rx Instructions .Route 09/08/21 02/11/22 Rx .COMPLEX #90 tabs famotidine 20 mg tablet 20 mg PO DAILY #90 tabs 11/04/21 02/11/22 Rx amlodipine 10 mg tablet See Rx Instructions .Route 12/09/21 02/11/22 Rx .COMPLEX #90 tabs sodium,potassium,mag sulfates 17.5 See Rx Instructions PO .COMPLEX 12/31/21 02/11/22 Rx gram-3.13 gram-1.6 gram oral soln #354 mL (Suprep Bowel Prep Kit) Patient hx anesthesia problems: none Family hx anesthesia problems: none Results Review: All pre-operative results and documents have been reviewed as part of the pre-operative evaluation. [facility] Past Medical History Medical History Anemia Anemia Essential (primary) hypertension Obstructive sleep apnea Screening for breast cancer Screening for colon cancer Screening for osteoporosis Shortness of breath Skin cyst L axilla Surgical History Surgical History H/O gastric bypass H/O: hysterectomy History of cholecystectomy Hx of appendectomy Knee joint replacement status Family History Family History Father Diabetes mellitus Family history of coronary artery disease Daughter Acute myocardial infarction Under the age of 50. Smoker Social History Social History Social History: Patient has never smoked cigarettes and does not participate and marijuana. She does not drink alcohol. 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 If she was unable to make decisions she would like Karishma Mcdonald, her daughter, to make decisions for her Smoking status: Never smoker Second hand tobacco smoke exposure: Yes Alcohol intake: never Substance use: never Substance use type: does not use Living arrangements: with family Gender identity (if verbalized by the patient): Female Spiritual care concerns: No Agree to blood products: Yes Anes - Eval Final PreProcedure Day of Procedure 02/14/22 09:06 Patient weight: morbidly obese Heart: regular rate and rhythm Lungs: clear to auscultation Airway: Mallampati scale class II Neurological: alert and oriented Last oral intake: >/= 8 hours ASA classification: III Emergent: no Anesthetic plan: proceed Anesthesia type and monitoring: general GIVS and standard monitoring Results Review: All pre-operative results and documents have been reviewed as part of the pre-operative evaluation. Informed Consent: The patient's anesthetic plan and its attendant risks and benefits were discussed with the patient/family/POA. Questions were solicited and answers provided to the satisfaction of the patient/family/POA.
[2022-02-14 09:08] VITALS: BP 140/75; PULSE 74; RESP 18; TEMP 36.7; O2SAT 94
[2022-02-14] MEDS: LACTATED RINGERS 1,000 ML 150 ML IV CONT (09:30)
[2022-02-14 09:31] LABS: Glucose Point of Care 108 mg/dl (65-105)
--- NOTE | 2022-02-14 09:42 | PM.HPGS ---
History of Present Illness History of Present Illness Consent: Risks, benefits, and alternatives have been discussed and questions answered. Patient agrees to proceed with procedure. Chief complaint: neoplasm screening Narrative: Clemencia Figueredo is a 71 year old female Presents for screening colonoscopy. Patient states that she desires neoplasia screening. Patient reports her current weight appetite bowel movements are normal. She denies abdominal pain. She has had no bleeding. Most recent colonoscopy 4-5 years ago was reported to have been normal with performed in [place] elsewhere. Family history is noncontributory. Review of Systems Review of Systems: Review of systems noncontributory. [facility] Past Medical History Medical History Anemia Anemia Essential (primary) hypertension Obstructive sleep apnea Screening for breast cancer Screening for colon cancer Screening for osteoporosis Shortness of breath Skin cyst L axilla Surgical History Surgical History H/O gastric bypass H/O: hysterectomy History of cholecystectomy Hx of appendectomy Knee joint replacement status Family History Family History Father Diabetes mellitus Family history of coronary artery disease Daughter Acute myocardial infarction Under the age of 50. Smoker Social History Social History Social History: Patient has never smoked cigarettes and does not participate and marijuana. She does not drink alcohol. 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 If she was unable to make decisions she would like Karishma Mcdonald, her daughter, to make decisions for her Smoking status: Never smoker Second hand tobacco smoke exposure: Yes Alcohol intake: never Substance use: never Substance use type: does not use Living arrangements: with family Gender identity (if verbalized by the patient): Female Spiritual care concerns: No Agree to blood products: Yes Meds Home Medications and Allergies Home Medications Medication Instructions Recorded Confirmed Type albuterol sulfate 90 mcg/actuation 2 puff inhalation QID PRN 07/19/19 02/11/22 Rx aerosol inhaler shortness of breath or wheezing #6.7 grams lancets 33 gauge (BD Ultra Fine #100 ea 07/19/19 02/11/22 Rx Lancets) magnesium 250 mg tablet 250 mg PO DAILY 01/15/21 02/11/22 History metformin 500 mg tablet 500 mg PO BID #180 tabs 06/01/21 02/11/22 Rx hydralazine 25 mg tablet See Rx Instructions .Route 07/06/21 02/11/22 Rx .COMPLEX #180 tabs losartan 100 mg tablet See Rx Instructions .Route 09/08/21 02/11/22 Rx .COMPLEX #90 tabs famotidine 20 mg tablet 20 mg PO DAILY #90 tabs 11/04/21 02/11/22 Rx amlodipine 10 mg tablet See Rx Instructions .Route 12/09/21 02/11/22 Rx .COMPLEX #90 tabs sodium,potassium,mag sulfates 17.5 See Rx Instructions PO .COMPLEX 12/31/21 02/11/22 Rx gram-3.13 gram-1.6 gram oral soln #354 mL (Suprep Bowel Prep Kit) Allergies Allergy/AdvReac Type Severity Reaction Status Date / Time codeine Allergy Unknown Swelling Verified 02/14/22 09:07 of Lip/Tongue/Throat Vital Signs Vital Signs - 24 hr 02/14/22 09:08 Temperature 98.1 F Pulse Rate 74 Respiratory Rate 18 Blood Pressure 140/75 Pulse Oximetry 94 Oxygen Delivery Room Air Exam Narrative: Physical exam reveals patient to be alert. Vital signs stable. HEENT exam is unremarkable. Patient is anicteric. Lungs are clear to auscultation and percussion. Heart is without murmur or extra sounds. Abdomen bowel sounds are present soft nontender with no organomegaly. Digital external rectal exam is normal. Assessment and Plan Assessment and plan (1) Screening f
[2022-02-14 10:17] VITALS: BP 120/69; PULSE 68; RESP 16; O2SAT 93
[2022-02-14 10:27] VITALS: BP 111/79; PULSE 67; RESP 19; O2SAT 94
[2022-02-14 10:37] VITALS: BP 116/63; PULSE 65; RESP 14; O2SAT 94
== END 2022-02-14 10:44 | disposition home or self-care (01) ==
PROVIDERS: PCP Internal Medicine; Visit Provider Internal Medicine Gastroenterology
PROC: 0DJD8ZZ Inspection of Lower Intestinal Tract, Via Natural or Artificial Opening Endoscopic (ICD-10-PCS; CPT 45378; principal; 2022-02-14 10:00)
DX: Z12.11 Encounter for screening for malignant neoplasm of colon (principal); D64.9 Anemia, unspecified; I10 Essential (primary) hypertension; G47.33 Obstructive sleep apnea (adult) (pediatric); Z90.49 Acquired absence of other specified parts of digestive tract; Z79.84 Long term (current) use of oral hypoglycemic drugs; Z79.51 Long term (current) use of inhaled steroids; E66.01 Morbid (severe) obesity due to excess calories; Z68.42 Body mass index [BMI] 45.0-49.9, adult
CPT/HCPCS: G0121; 82948; J2405; J2704; J7120

== ENCOUNTER 2022-02-28 14:58 | Outpatient (CLI) | payer OTHER, SELFPAY ==
--- NOTE | ~2022-02-28 | MM_ITS ---
EXAMINATION: MM screening [facility] w [facility] HISTORY: Screening TECHNIQUE: Craniocaudal and mediolateral oblique 3-D tomosynthesis images were obtained and synthetic 2-D images were generated. CAD analysis was submitted and interpreted. COMPARISON: Comparison to multiple prior studies sequentially, with oldest reviewed study dated 04/02. BREAST PARENCHYMAL COMPOSITION: There are scattered areas of fibroglandular density. FINDINGS: There is no evidence of suspicious mass, calcification, or architectural distortion to sugg est malignancy in either breast. There has been no suspicious interval change. IMPRESSION: 1. No mammographic evidence of malignancy. 2. Recommend routine screening mammography in one year. BI-RADS Category 1: Negative Reviewed, dictated and finalized at location A.
== END 2022-02-28 14:59 | disposition home or self-care (01) ==
LOC: ANHIMG 15:01
PROVIDERS: PCP Internal Medicine; Visit Provider Internal Medicine
DX: Z12.31 Encounter for screening mammogram for malignant neoplasm of breast (principal)
CPT/HCPCS: 77063; 77067

== ENCOUNTER 2022-07-05 22:25 | Inpatient (IN) | payer OTHER, SELFPAY ==
--- NOTE | ~2022-07-05 | XR_ITS ---
EXAMINATION: XR chest 2V Exam Date/Time: 07/05/2022 22:45 REAL ESTATE ADMINISTRATOR HISTORY: Left upper chest pain w/ SOB x 1 week. Hx htn Comparison: None available. RESULT: Lines, tubes, and devices: Surgical clips and sutures in the left abdomen. Cholecystectomy clips. Lungs and pleura: Streaky and patchy bibasilar opacities. Bilateral midlung scar. Senescent changes. Left posterior costophrenic angle blunting. Cardiomediastinal silhouette: Stable. Other: No acute osseous or upper abdominal finding. IMPRESSION: Bibasilar atelectasis and/or consolidation. Small left pleural effusion. Reviewed, dictated and finalized at location K. ESTATE ADMINISTRATOR
--- NOTE | ~2022-07-05 | CT_ITS ---
EXAMINATION: CTA chest PE protocol DATE: 07/06/2022 03:32 INDICATION: Left pleuritic chest pain TECHNIQUE: Computed tomography (CT) pulmonary angiogram of the chest was performed with 100 mL Omnipa que-350 intravenous contrast. Additional 3D reconstructions utilizing coronal maximum intensity proje ction (MIP) were performed. Automated exposure control and iterative reconstruction technique were em ployed. The dose-length product was 904.40 mGy-cm. COMPARISON: 07/14/2019 FINDINGS: Good contrast opacification of the pulmonary arteries which along with mild respiratory motion artifa ct most prominent at the lower lung zones mildly decreases sensitivity in some of the smaller basilar subsegmental pulmonary arteries. No pulmonary embolism. A couple small calcified pulmonary nodules i n the left upper and right lower lobes and calcified bilateral hilar lymph nodes consistent with old granulomatous disease. Small left pericardial effusion. Chronic atelectasis/scarring at the lingula. Additional mild discoid atelectasis in the right middle lobe. There is peripheral and lower lung pred ominant smooth septal line thickening which is more prominent in the right lung consistent with asymm etric mild pulmonary edema. There are multiple small centrilobular nodules and groundglass opacities in place with tree-in-bud pattern at the lateral periphery of the right upper lobe and to a lesser de gree in the right lower lobe consistent with pneumonia with endobronchial spread of disease. Borderli ne heart size. No pericardial effusion. Thoracic aorta is normal in caliber with no dissection. No pa thologically enlarged thoracic lymphadenopathy. Post cystectomy clips the gallbladder fossa. Postoper ative changes in the upper abdomen with multiple surgical clips and sutures along the stomach and in the left infra diaphragmatic fat anterior to the spleen. Severe thoracic spondylosis. IMPRESSION: 1. No pulmonary metastases. 2. Asymmetric mild right-sided predominant pulmonary edema and small left pleural effusion. 3. Multiple small centrilobular nodules and groundglass opacities at the periphery of the right upper and right lower lobes most likely pneumonia. Recommend 3-6 month follow-up chest CT. 4. Borderline heart size. Reviewed, dictated and finalized at location A. /[employer] IMPRESSION: 1. No pulmonary metastases. 2. Asymmetric mild right-sided predominant pulmonary edema and small left pleur al effusion. 3. Multiple small centrilobular nodules and groundglass opacities at the periph emma of the right upper and right lower lobes most likely pneumonia. Recommend 3 -6 month follow-up chest CT. 4. Borderline heart size.
--- NOTE | ~2022-07-05 | XR_ITS ---
Portable chest x-ray Comparison: 07/05/2022 Clinical History: Pneumonia Findings: Probable small left pleural effusion present with hazy left basilar and left perihilar air space disease. There is probable mild central congestive change at the hilar regions. Cardiomediasti nal silhouette is stable. Bones and soft tissues are unremarkable. Impression: Small left pleural effusion. Central pulmonary venous congestive change. Hazy left basilar airspace disease could reflect left basilar pulmonary edema/atelectasis versus pneu monia. Correlate clinically. Reviewed, dictated and finalized at [facility]. FED CASING TIER Impression: Small left pleural effusion. Central pulmonary venous congestive change. Hazy left basilar airspace disease could reflect left basilar pulmonary edema/a telectasis versus pneumonia. Correlate clinically.
--- NOTE | ~2022-07-05 | MR_ITS ---
EXAMINATION: MR cervical spine wo con DATE: 07/06/2022 15:01 INDICATION: Neck pain with radiculopathy. TECHNIQUE: Magnetic resonance imaging (MRI) of the cervical spine was performed without intravenous c ontrast. COMPARISON: None FINDINGS: There is hypolordosis of cervical spine. Vertebral body heights are normal. There is mildly decreased disc height at C4-C5 and severely decreased disc height at C5-C6 and C6-C7. The spinal cor d signal intensity is normal. The following disc levels are specifically discussed: C2-C3: The disc does not extend beyond the endplate margin. There is no uncovertebral joint osteoarth ritis. There is severe bilateral facet joint osteoarthritis. There is mild left neural foraminal sten osis. There is no central canal stenosis. C3-C4: The disc does not extend beyond the endplate margin. There is no uncovertebral joint osteoarth ritis. There is moderate right and severe left facet joint osteoarthritis. There is mild left neural foraminal stenosis. There is no central canal stenosis. C4-C5: There is a central protrusion. There is no uncovertebral joint osteoarthritis. There is severe bilateral facet joint osteoarthritis. There is mild bilateral neural foraminal stenosis. There is no central canal stenosis. C5-C6: The disc is bulging. There is severe bilateral uncovertebral joint osteoarthritis. There is mo derate right and severe left facet joint osteoarthritis. There is mild right and moderate left neural foraminal stenosis. There is mild central canal stenosis. C6-C7: The disc is bulging. There is mild right and moderate left uncovertebral joint osteoarthritis. There is no facet joint osteoarthritis. There is mild left neural foraminal stenosis. There is no ce ntral canal stenosis. C7-T1: There is a central protrusion. There is no uncovertebral joint osteoarthritis. There is severe right and mild left facet joint osteoarthritis. There is mild right neural foraminal stenosis. There is no central canal stenosis. IMPRESSION: 1. Severe cervical spondylosis. Reviewed, dictated and finalized at location A. S CHASER
[2022-07-05 22:27] VITALS: BP 180/78; PULSE 88; RESP 24; TEMP 36.6; O2SAT 94
--- NOTE | 2022-07-05 22:27 | ECG_ITS ---
Measurements Intervals [place] Rate: 77 P: 38 IA: 205 QRS: -41 QRSD: 104 T: 20 QT: 356 QTc: 404 Interpretive Statements SINUS RHYTHM LEFT AXIS DEVIATION LEFT VENTRICULAR HYPERTROPHY WITH ST-T CHANGE POOR R WAVE PROGRESSION, ANTERIOR LEADS BORDERLINE ECG COMPARED TO ECG 09/11/2019 20:20:56 NO SIGNIFICANT CHANGES Electronically Signed On 07-06-2022 6:39:42 LABEL STITCHER by Tk Ray D.O.
[2022-07-05 22:39] LABS: Basophils Percent Auto 0.3 % (0.2-1.2); Eosinophils Absolute Auto 0.9 K/mm3 (0-0.3); Eosinophils Percent Auto 6.7 % (0-4.4); Hematocrit 40.3 % (37.0-47.0); Hemoglobin 12.8 g/dL (12.0-15.0); Immature Granulocyte Absolute 0.05 K/mm3 (0.00-0.031); Immature Granulocyte Percent A 0.4 % (0-0.5); Lymphocytes Absolute Auto 3.32 K/mm3 (0.9-3.2); Lymphocytes Percent Auto 24.9 % (18.3-44.2); Mean Corpuscular HGB Conc 31.8 g/dl (32-36); Mean Corpuscular Hemoglobin 26.9 pg (26-34); Mean Corpuscular Volume 84.7 fl (80-100); Mean Platelet Volume 10.1 fl (7.4-10.4); Monocytes Absolute Auto 1.2 K/mm3 (0.1-0.6); Monocytes Percent Auto 8.6 % (2.6-8.5); Neutrophils Absolute Auto 7.9 K/mm3 (1.3-6.7); Neutrophils Percent Auto 59.1 % (45.5-73.1); Platelet Count Result 373 k/mm3 (150-375); Red Blood Count 4.76 M/mm3 (4.2-5.4); White Blood Count 13.3 K/mm3 (4.5-10.0)
[2022-07-05 22:48] LABS: Alanine Aminotransferase 18 U/L (6-35); Albumin Level 4.3 g/dL (3.5-5.1); Alkaline Phosphatase 125 U/L (38-126); Anion Gap 8 mmol/L (8-16); Aspartate Amino Transferase 20 U/L (14-36); Bilirubin,Total 0.4 mg/dL (0.2-1.3); Blood Urea Nitrogen 24 mg/dL (7-17); Calcium 9.2 mg/dL (8.4-10.2); Carbon Dioxide 25 mmol/L (22-30); Chloride 106 mmol/L (98-107); Estimated CRCL calculation 97 ml/min; Estimated Glomerular Filt Rate > 60; Glucose 110 mg/dL (65-110); Lipase 70 U/L (23-300); Potassium 4.1 mmol/L (3.4-5.0); Sodium 139 mmol/L (137-145)
[2022-07-05 22:59] LABS: Troponin I < 0.012 ng/mL (0.000-0.034)
[2022-07-05 23:00] LABS: Prothrombin Time 12.5 Seconds (11.1-14.7)
[2022-07-05 23:01] LABS: Partial Thromboplastin Time 32.3 SECONDS (22.3-36.8)
[2022-07-06] VITALS (30 sets, daily range): BP systolic 121–136; BP diastolic 58–70; PULSE 67–83; RESP 12–32; TEMP 36.1–36.4; O2SAT 88–100; BMI 48.0; BMI 48.2
[2022-07-06] MEDS: ASPIRIN 81 MG CHEWABLE TABLET 324 MG PO (00:05)
[2022-07-06 01:49] LABS: Troponin I < 0.012 ng/mL (0.000-0.034)
--- NOTE | 2022-07-06 02:27 | ED.GENADULT ---
HPI - General Adult General Chief complaint: Chest Pain Stated complaint: sob Time Seen by Provider: 07/06/22 00:46 History of Present Illness HPI narrative: this is a 71-year-old female presenting to ED with 5 days of progressive shoulder and chest pain. approximately 1 week ago the patient sat for about 8 hours in the ER lobby. A day later she started to have pain in her left shoulder that then spread into her neck left back, left armpit and left chest wall. The pain is sharp, 9/10 intensity and constant. She says she has experienced pain like this before in the past when she had pneumonia. It is worse with deep breaths and movement. The patient has been taking Aleve with minimal relief. Patient denies any history of DVT / PE, malignancy, trauma, lower extremity edema. She denies fever, chills, productive cough. Denies history of CHF. Related Data Home Medications Medication Instructions Recorded Confirmed magnesium 250 mg tablet 250 mg PO DAILY 01/15/21 02/11/22 Allergies Allergy/AdvReac Type Severity Reaction Status Date / Time codeine Allergy Unknown Swelling Verified 02/14/22 09:07 of Lip/Tongue/Throat PMFSH Past Medical History Medical History Anemia Anemia Essential (primary) hypertension Obstructive sleep apnea Screening for breast cancer Screening for colon cancer Screening for osteoporosis Shortness of breath Skin cyst L axilla Surgical History Surgical History H/O gastric bypass H/O: hysterectomy History of cholecystectomy Hx of appendectomy Knee joint replacement status Family History Family History Father Diabetes mellitus Family history of coronary artery disease Daughter Acute myocardial infarction Under the age of 50. Smoker Social History Social History Social History: Patient has never smoked cigarettes and does not participate and marijuana. She does not drink alcohol. 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 If she was unable to make decisions she would like Karishma Mcdonald, her daughter, to make decisions for her Smoking status: Never smoker Second hand tobacco smoke exposure: Yes Alcohol intake: never Substance use: never Substance use type: does not use Living arrangements: with family Gender identity (if verbalized by the patient): Female Spiritual care concerns: No Agree to blood products: Yes Exam Narrative: APPEARANCE: Patient appears uncomfortable Head: atraumatic. EYES: EOMI, NOSE: Atraumatic NECK: Trachea midline RESPIRATORY: increased work of breathing, scattered expiratory wheezing, 89% saturation on room air, 93% on 2 L CARDIOVASCULAR: RRR,, no peripheral edema ABDOMINAL: Non-distended MUSCULOSKELETAl: No obvious deformities NEURO: Alert. Moving 4/4 extremities SKIN:: Warm, dry. Normal color PSYCHIATRIC: Normal affect Course Vital Signs Vital signs: Vital Signs Temperature 97.8 F 07/05/22 22:27 Pulse Rate 88 07/05/22 22:27 Respiratory Rate 24 H 07/05/22 22:27 Blood Pressure 180/78 H 07/05/22 22:27 Pulse Oximetry 94 07/05/22 22:27 Oxygen Delivery Room Air 07/05/22 22:27 Temperature 97.8 F 07/05/22 22:27 Pulse Rate 71 07/06/22 04:45 Respiratory Rate 20 07/06/22 04:45 Blood Pressure 130/59 L 07/06/22 02:01 Pulse Oximetry 93 07/06/22 04:45 Oxygen Delivery Nasal Cannula 07/06/22 04:45 Oxygen Flow Rate 2 07/06/22 04:45 Fraction of Inspired Oxygen 28 07/06/22 04:45 Medical Decision Making MDM Narrative Medical decision making narrative: -Presentation: 71-year-old female presenting with pleuritic left-sided pain and hypoxic on room air requiring supplemental oxygen. -DDX includes b
[2022-07-06] MEDS: HYDROcodone/acetaminophen (*CRX) 5-325 MG TABLET 1 TAB PO ×4 (02:57→20:59)
[2022-07-06] MEDS: methocarbamoL 750 MG TABLET PO (03:12)
[2022-07-06] MEDS: IPRATROPIUM BR 0.02% INH SOLN 0.5 MG/2.5 ML VIAL 1 MG INHALATION (04:44)
[2022-07-06] MEDS: ALBUTEROL SULFATE NEB 2.5 MG/3 ML INH 5 MG INHALATION (04:44)
[2022-07-06 04:47] LABS: NT Pro B Type Natriuretic Pept < 20 pg/mL (19.9-100)
[2022-07-06 05:39] LABS: Troponin I < 0.012 ng/mL (0.000-0.034)
[2022-07-06 05:51] LABS: Influenza A QL RT-PCR Negative (Negative); Influenza B QL RT-PCR Negative (Negative); RSV RNA, RT-PCR Negative (Negative); SARS-CoV-2 RNA PCR Negative
[2022-07-06] MEDS: LACTATED RINGERS 1,000 ML 100 ML IV CONT ×2 (12:13→19:59)
--- NOTE | 2022-07-06 12:37 | PC.NURSE ---
This patient, Clemencia Figueredo, was admitted to [facility] Surg Room 322-02. Patient/family oriented to hospital policies and general routines including ID bracelet, bed and alarms, visiting hours, pain management, procedures, bathroom and other care routines, personal items, smoking policy, room service/diet, and visiting hours. Information on how to activate the Rapid Response Team has been discussed. Patient/Family are encouraged to report perceived risks to care and to ask questions if they do not understand what they are told or what they should do.
--- NOTE | 2022-07-06 12:46 | PM.IMHP ---
H&P: HPI History of Present Illness Date/Time: 07/06/22 12:46 Chief Complaint: this is a 71-year-old female presenting to ED with 5 days of progressive shoulder and chest pain. ? approximately 1 week ago the patient sat for about 8 hours in the ER lobby.? A day later she started to have pain in her left shoulder that then spread into her neck left back,? left armpit and left chest wall.? The pain is sharp, 9/10 intensity and constant.? She says she has experienced pain like this before in the past when she had pneumonia.? It is worse with deep breaths and movement.? The patient has been taking Aleve with minimal relief.? Patient denies any history of DVT / PE, malignancy, trauma, lower extremity edema.? She denies fever, chills, productive cough.? Denies history of CHF. Review of Systems Review of Systems: 10 point review of systems negative PMFSH Past Medical History Medical History Anemia Anemia Essential (primary) hypertension Obstructive sleep apnea Screening for breast cancer Screening for colon cancer Screening for osteoporosis Shortness of breath Skin cyst L axilla Surgical History Surgical History H/O gastric bypass H/O: hysterectomy History of cholecystectomy Hx of appendectomy Knee joint replacement status Family History Family History Father Diabetes mellitus Family history of coronary artery disease Daughter Throat cancer Acute myocardial infarction Under the age of 50. Smoker Sibling Lung cancer Mother Pancreas cancer Sibling Bone cancer Sibling Heart attack Social History Social History Social History: Patient has never smoked cigarettes and does not participate and marijuana. She does not drink alcohol. 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 If she was unable to make decisions she would like Karishma Mcdonald, her daughter, to make decisions for her Smoking status: Never smoker Second hand tobacco smoke exposure: Yes Alcohol intake: never Substance use: never Substance use type: does not use Living arrangements: with family Gender identity (if verbalized by the patient): Female Spiritual care concerns: No Agree to blood products: Yes Meds Home Medications and Allergies Home Medications Medication Instructions Recorded Confirmed Type lancets 33 gauge (BD Ultra Fine #100 ea 07/19/19 07/06/22 Rx Lancets) magnesium 250 mg tablet 250 mg PO DAILY 01/15/21 07/06/22 History losartan 100 mg tablet See Rx Instructions .Route 03/09/22 07/06/22 Rx .COMPLEX #90 tabs hydralazine 25 mg tablet See Rx Instructions .Route 04/04/22 07/06/22 Rx .COMPLEX #180 tabs amlodipine 10 mg tablet See Rx Instructions .Route 05/12/22 07/06/22 Rx .COMPLEX #90 tabs famotidine 20 mg tablet See Rx Instructions .Route 05/31/22 07/06/22 Rx .COMPLEX #30 tabs metformin 500 mg tablet 500 mg PO BID #180 tabs 06/01/22 07/06/22 Rx Allergies Allergy/AdvReac Type Severity Reaction Status Date / Time codeine Allergy Unknown Swelling Verified 02/14/22 09:07 of Lip/Tongue/Throat Vital Signs Vital Signs - 24 hr 07/05/22 22:27 07/06/22 00:57 07/06/22 01:06 Temperature 97.8 F Pulse Rate 88 75 81 Respiratory Rate 24 H 19 19 Blood Pressure 180/78 H Pulse Oximetry 94 92 91 Oxygen Delivery Room Air Oxygen Flow Rate Fraction of Inspired Oxygen 07/06/22 01:15 07/06/22 01:30 07/06/22 01:31 Temperature Pulse Rate 79 77 77 Respiratory Rate 20 16 16 Blood Pressure 124/58 L Pulse Oximetry 92 92 92 Oxygen Delivery Oxygen Flow Rate Fraction of Inspired Oxygen 07/06/22 01:45 07/06/22 02:00 07/06/22 02:01 Temperature Pulse Rate 78 79 79 Res
[2022-07-06] MEDS: DICYCLOMINE HCL INJ 20 MG/2 ML VIAL IM (12:57)
[2022-07-06] MEDS: MAGNESIUM 13.5 MG TABLET (250 MG MAG GLUCONATE) PO (20:02)
[2022-07-06] MEDS: CYCLOBENZAPRINE HCL 5 MG TABLET PO (20:02)
[2022-07-06] MEDS: FAMOTIDINE 20 MG TABLET PO (20:03)
[2022-07-06] MEDS: hydrALAZINE HCL 25 MG TABLET PO (20:03)
[2022-07-06] MEDS: LOSARTAN POTASSIUM 100 MG TABLET PO (20:03)
[2022-07-06 21:02] LABS: Glucose Point of Care 106 mg/dl (65-105)
[2022-07-07] MEDS: LACTATED RINGERS 1,000 ML 100 ML IV CONT ×2 (00:59→16:24)
[2022-07-07] MEDS: HYDROcodone/acetaminophen (*CRX) 5-325 MG TABLET 1 TAB PO ×3 (03:43→21:02)
[2022-07-07] MEDS: HYDROmorphone HCL INJ (*CRX) 1 MG/ML SYR 0.5 MG IV PUSH (03:56)
[2022-07-07 06:00] VITALS: BP 129/76; PULSE 71; RESP 18; TEMP 35.9; O2SAT 92
[2022-07-07 07:52] LABS: Glucose Point of Care 114 mg/dl (65-105)
[2022-07-07 08:45] VITALS: O2SAT 91
[2022-07-07] MEDS: amLODIPine BESYLATE 5 MG TABLET 10 MG PO (08:49)
[2022-07-07] MEDS: LOSARTAN POTASSIUM 100 MG TABLET PO ×2 (08:49→21:00)
[2022-07-07] MEDS: MAGNESIUM 13.5 MG TABLET (250 MG MAG GLUCONATE) PO (08:49)
[2022-07-07] MEDS: hydrALAZINE HCL 25 MG TABLET PO ×2 (08:49→21:00)
[2022-07-07] MEDS: CYCLOBENZAPRINE HCL 5 MG TABLET PO (09:00)
[2022-07-07 10:25] LABS: Anion Gap 6 mmol/L (8-16); Basophils Percent Auto 0.3 % (0.2-1.2); Blood Urea Nitrogen 18 mg/dL (7-17); Calcium 8.2 mg/dL (8.4-10.2); Carbon Dioxide 28 mmol/L (22-30); Chloride 99 mmol/L (98-107); Eosinophils Absolute Auto 0.6 K/mm3 (0-0.3); Eosinophils Percent Auto 5.3 % (0-4.4); Estimated CRCL calculation 97 ml/min; Estimated Glomerular Filt Rate > 60; Glucose 123 mg/dL (65-110); Hematocrit 38.4 % (37.0-47.0); Hemoglobin 11.9 g/dL (12.0-15.0); Immature Granulocyte Absolute 0.05 K/mm3 (0.00-0.031); Immature Granulocyte Percent A 0.4 % (0-0.5); Lymphocytes Absolute Auto 2.05 K/mm3 (0.9-3.2); Lymphocytes Percent Auto 18.2 % (18.3-44.2); Mean Corpuscular Hemoglobin 26.7 pg (26-34); Mean Corpuscular Volume 86.3 fl (80-100); Mean Platelet Volume 10.2 fl (7.4-10.4); Monocytes Absolute Auto 0.7 K/mm3 (0.1-0.6); Monocytes Percent Auto 6.3 % (2.6-8.5); Neutrophils Absolute Auto 7.8 K/mm3 (1.3-6.7); Neutrophils Percent Auto 69.5 % (45.5-73.1); Platelet Count Result 360 k/mm3 (150-375); Potassium 4.4 mmol/L (3.4-5.0); Red Blood Count 4.45 M/mm3 (4.2-5.4); Red Cell Distribution Width 15.9 % (11.5-14.5); Sodium 133 mmol/L (137-145); White Blood Count 11.3 K/mm3 (4.5-10.0)
--- NOTE | 2022-07-07 11:24 | PM.IMPN ---
Progress Note: A&P Assessment and Plan (1) Pneumonia: Code(s): J18.9 - Pneumonia, unspecified organism Status: Acute Assessment and Plan: Continue IV antibiotics. She is having some pain in her left shoulder and left neck. Could be pleuritic pain. Will get MRI of her cervical spine as well. (2) Respiratory failure with hypoxia: Code(s): J96.91 - Respiratory failure, unspecified with hypoxia Status: Acute Assessment and Plan: Monitor, oxygen as needed. (3) Pleuritic chest pain: Code(s): R07.81 - Pleurodynia Status: Acute (4) Other and unspecified hyperlipidemia: Code(s): E78.5 - Hyperlipidemia, unspecified Status: Acute (5) Type 2 diabetes mellitus: Qualifiers: Diabetes mellitus press tender long goods insulin use: without snf use Diabetes mellitus complication status: without complication Qualified Code(s): E11.9 - Type 2 diabetes mellitus without complications Code(s): E11.9 - Type 2 diabetes mellitus without complications Status: Acute (6) Obstructive sleep apnea: Code(s): G47.33 - Obstructive sleep apnea (adult) (pediatric) Status: Acute (7) Essential (primary) hypertension: Code(s): I10 - Essential (primary) hypertension Status: Acute Subjective Date/time seen: 07/07/22 11:24 No new complaints Exam Narrative: General: alert and oriented Psych: appropriate mood nad affect Eyes: PERRLA Neck: Trachea midline, no new lesions Skin: no changes Lungs: CTA Cardiac: Normal S1,S2, no MGR ABD: soft, nd, nt, nbs Ext: no new lesions, no cce Vasc: Pulses intact Objective Data Vital Signs Vital Signs: Vital Signs - 24 hr 07/06/22 14:00 07/06/22 19:55 07/06/22 22:00 Temperature 97.5 F L 97.2 F L Pulse Rate 70 70 Respiratory Rate 20 16 Blood Pressure 121/67 136/66 Pulse Oximetry 90 98 92 Oxygen Delivery Nasal Cannula Oxygen Flow Rate 2 07/07/22 06:00 07/07/22 08:45 Temperature 96.7 F L Pulse Rate 71 Respiratory Rate 18 Blood Pressure 129/76 Pulse Oximetry 92 91 Oxygen Delivery Nasal Cannula Oxygen Flow Rate 3 Intake/Output Intake/Output: Intake & Output 07/04/22 07/05/22 07/06/22/09/23 23:59 23:59 23:59 23:59 Intake Total 2760 1450 Balance 2760 1450 Meds/Results Medications: Active Medications Generic Name Dose Route Start Last Admin Trade Name Freq PRN Reason Stop Dose Admin Hydrocodone Bitart/Acetaminophen 1 tab 07/06/22 06:01 07/07/22 03:43 Hydrocodone/Acetaminophen (*Crx) 5-325 Mg Tablet PO 1 tab Q4H PRN Administration Pain Rated 4-6 Amlodipine Besylate 10 mg 07/07/22 09:00 07/07/22 08:49 Amlodipine Besylate 5 Mg Tablet PO 10 mg QAM SAJAN Administration Cyclobenzaprine HCl 5 mg 07/06/22 14:29 07/07/22 09:00 Cyclobenzaprine Hcl 5 Mg Tablet PO 5 mg DAILY PRN Administration Muscle Spasm Dicyclomine HCl 20 mg 07/06/22 06:01 07/06/22 12:57 Dicyclomine Hcl Inj 20 Mg/2 Ml Vial IM 20 mg Q6H PRN Administration Abdominal Cramping Hydralazine HCl 25 mg 07/06/22 21:00 07/07/22 08:49 Hydralazine Hcl 25 Mg Tablet PO 25 mg Q12HR SAJAN Administration Hydromorphone HCl 0.5 mg 07/06/22 06:01 07/07/22 03:56 Hydromorphone Hcl Inj (*Crx) 1 Mg/Ml Syr IV PUSH 0.5 mg Q4H PRN Administration Pain Rated 7-10 Ceftriaxone Sodium 1 gm in 50 mls @ 100 mls/hr 07/07/22 06:00 07/07/22 05:39 Rocephin 1 Gm/Ns 50 Ml IVPB 100 mls/hr Q24H SAJAN Administration Azithromycin 500 mg in 250 mls @ 250 mls/hr 07/07/22 06:00 07/07/22 05:38 Zithromax IVPB 250 mls/hr Q24H SAJAN Administration Lactated Ringer's 1,000 mls @ 100 mls/hr 07/06/22 06:05 07/07/22 00:59 Lr - Lactated Ringers Iv IV CONT 100 mls/hr .Q10H SAJAN Administration Losartan Potassium 100 mg 07/06/22 21:00 07/07/22 08:49 Losartan Potassium 100 Mg Tablet PO 100 mg Q12HR SAJAN Administration Magnesium Gl
[2022-07-07 11:37] LABS: Glucose Point of Care 97 mg/dl (65-105)
[2022-07-07 14:00] VITALS: BP 116/101; PULSE 78; RESP 20; TEMP 36.4; O2SAT 90
[2022-07-07 16:59] LABS: Glucose Point of Care 110 mg/dl (65-105)
[2022-07-07 22:00] VITALS: BP 164/83; PULSE 77; RESP 16; TEMP 36.5; O2SAT 92
[2022-07-07 22:01] LABS: Glucose Point of Care 127 mg/dl (65-105)
[2022-07-08] MEDS: LACTATED RINGERS 1,000 ML 100 ML IV CONT (02:30)
[2022-07-08 06:00] VITALS: BP 133/71; PULSE 72; RESP 14; TEMP 35.9; O2SAT 91
[2022-07-08 08:27] LABS: Glucose Point of Care 161 mg/dl (65-105)
[2022-07-08] MEDS: amLODIPine BESYLATE 5 MG TABLET 10 MG PO (09:01)
[2022-07-08] MEDS: hydrALAZINE HCL 25 MG TABLET PO ×2 (09:01→21:38)
[2022-07-08] MEDS: MAGNESIUM 13.5 MG TABLET (250 MG MAG GLUCONATE) PO (09:01)
[2022-07-08] MEDS: FUROSEMIDE INJ 40 MG/4 ML VIAL 20 MG IV PUSH (09:01)
[2022-07-08] MEDS: LOSARTAN POTASSIUM 100 MG TABLET PO ×2 (09:01→21:38)
[2022-07-08 09:05] VITALS: O2SAT 95
[2022-07-08 09:26] VITALS: O2SAT 92
--- NOTE | 2022-07-08 11:13 | PM.IMPN ---
Progress Note: A&P Assessment and Plan (1) Pneumonia: Code(s): J18.9 - Pneumonia, unspecified organism Status: Acute Assessment and Plan: Continue IV antibiotics. She is having some pain in her left shoulder and left neck. Could be pleuritic pain. Will get MRI of her cervical spine as well. (2) Respiratory failure with hypoxia: Code(s): J96.91 - Respiratory failure, unspecified with hypoxia Status: Acute Assessment and Plan: Monitor, oxygen as needed. (3) Pleuritic chest pain: Code(s): R07.81 - Pleurodynia Status: Acute (4) Other and unspecified hyperlipidemia: Code(s): E78.5 - Hyperlipidemia, unspecified Status: Acute (5) Type 2 diabetes mellitus: Qualifiers: Diabetes mellitus terminal makeup operator insulin use: without chcf use Diabetes mellitus complication status: without complication Qualified Code(s): E11.9 - Type 2 diabetes mellitus without complications Code(s): E11.9 - Type 2 diabetes mellitus without complications Status: Acute (6) Obstructive sleep apnea: Code(s): G47.33 - Obstructive sleep apnea (adult) (pediatric) Status: Acute (7) Essential (primary) hypertension: Code(s): I10 - Essential (primary) hypertension Status: Acute Subjective Date/time seen: 07/08/22 11:13 Breathing better Exam Narrative: General: alert and oriented Psych: appropriate mood nad affect Eyes: PERRLA Neck: Trachea midline, no new lesions Skin: no changes Lungs: CTA Cardiac: Normal S1,S2, no MGR ABD: soft, nd, nt, nbs Ext: no new lesions, no cce Vasc: Pulses intact Objective Data Vital Signs Vital Signs: Vital Signs - 24 hr 07/07/22 14:00 07/07/22 22:00 07/08/22 06:00 Temperature 97.5 F L 97.7 F 96.6 F L Pulse Rate 78 77 72 Respiratory Rate 20 16 14 Blood Pressure 116/101 H 164/83 H 133/71 Pulse Oximetry 90 92 91 Oxygen Delivery Oxygen Flow Rate 07/08/22 09:05 07/08/22 09:26 Temperature Pulse Rate Respiratory Rate Blood Pressure Pulse Oximetry 95 92 Oxygen Delivery Nasal Cannula Nasal Cannula Oxygen Flow Rate 3 2 Intake/Output Intake/Output: Intake & Output 07/05/22 07/06/22 07/07/22 03/10/23 23:59 23:59 23:59 23:59 Intake Total 2760 2990 1750 Balance 2760 2990 1750 Meds/Results Medications: Active Medications Generic Name Dose Route Start Last Admin Trade Name Freq PRN Reason Stop Dose Admin Hydrocodone Bitart/Acetaminophen 1 tab 07/06/22 06:01 07/07/22 21:02 Hydrocodone/Acetaminophen (*Crx) 5-325 Mg Tablet PO 1 tab Q4H PRN Administration Pain Rated 4-6 Amlodipine Besylate 10 mg 07/07/22 09:00 07/08/22 09:01 Amlodipine Besylate 5 Mg Tablet PO 10 mg QAM SAJAN Administration Cyclobenzaprine HCl 5 mg 07/06/22 14:29 07/07/22 09:00 Cyclobenzaprine Hcl 5 Mg Tablet PO 5 mg DAILY PRN Administration Muscle Spasm Dicyclomine HCl 20 mg 07/06/22 06:01 07/06/22 12:57 Dicyclomine Hcl Inj 20 Mg/2 Ml Vial IM 20 mg Q6H PRN Administration Abdominal Cramping Hydralazine HCl 25 mg 07/06/22 21:00 07/08/22 09:01 Hydralazine Hcl 25 Mg Tablet PO 25 mg Q12HR SAJAN Administration Hydromorphone HCl 0.5 mg 07/06/22 06:01 07/07/22 03:56 Hydromorphone Hcl Inj (*Crx) 1 Mg/Ml Syr IV PUSH 0.5 mg Q4H PRN Administration Pain Rated 7-10 Ceftriaxone Sodium 1 gm in 50 mls @ 100 mls/hr 07/07/22 06:00 07/08/22 06:11 Rocephin 1 Gm/Ns 50 Ml IVPB Infused Q24H SAJAN Infusion Azithromycin 500 mg in 250 mls @ 250 mls/hr 07/07/22 06:00 07/08/22 06:39 Zithromax IVPB Infused Q24H SAJAN Infusion Losartan Potassium 100 mg 07/06/22 21:00 07/08/22 09:01 Losartan Potassium 100 Mg Tablet PO 100 mg Q12HR SAJAN Administration Magnesium Gluconate 13.5 mg 07/06/22 18:25 07/08/22 09:01 Magnesium 13.5 Mg Tablet (250 Mg Mag Gluconate) PO 13.5 mg DAILY SAJAN Administration Ondansetron HCl 4
[2022-07-08 11:59] LABS: Glucose Point of Care 95 mg/dl (65-105)
[2022-07-08 14:00] VITALS: BP 117/64; PULSE 80; RESP 14; TEMP 36.4; O2SAT 91
[2022-07-08 17:56] LABS: Glucose Point of Care 201 mg/dl (65-105)
[2022-07-08 21:30] VITALS: BP 122/59; PULSE 78; RESP 16; TEMP 36.6; O2SAT 93
[2022-07-09 06:00] VITALS: BP 134/73; PULSE 79; RESP 18; TEMP 37.1; O2SAT 92
[2022-07-09 08:00] VITALS: O2SAT 91
[2022-07-09 08:10] LABS: Glucose Point of Care 123 mg/dl (65-105)
[2022-07-09] MEDS: MAGNESIUM 13.5 MG TABLET (250 MG MAG GLUCONATE) PO (08:27)
[2022-07-09] MEDS: LOSARTAN POTASSIUM 100 MG TABLET PO (08:27)
[2022-07-09] MEDS: amLODIPine BESYLATE 5 MG TABLET 10 MG PO (08:27)
[2022-07-09] MEDS: hydrALAZINE HCL 25 MG TABLET PO (08:27)
[2022-07-09 08:38] LABS: Basophils Percent Auto 0.3 % (0.2-1.2); Eosinophils Absolute Auto 0.5 K/mm3 (0-0.3); Eosinophils Percent Auto 4.4 % (0-4.4); Hematocrit 41.2 % (37.0-47.0); Hemoglobin 12.8 g/dL (12.0-15.0); Immature Granulocyte Absolute 0.04 K/mm3 (0.00-0.031); Immature Granulocyte Percent A 0.4 % (0-0.5); Lymphocytes Absolute Auto 1.56 K/mm3 (0.9-3.2); Lymphocytes Percent Auto 15.1 % (18.3-44.2); Mean Corpuscular HGB Conc 31.1 g/dl (32-36); Mean Corpuscular Hemoglobin 27.1 pg (26-34); Mean Corpuscular Volume 87.1 fl (80-100); Mean Platelet Volume 9.9 fl (7.4-10.4); Monocytes Absolute Auto 0.5 K/mm3 (0.1-0.6); Monocytes Percent Auto 4.5 % (2.6-8.5); Neutrophils Absolute Auto 7.8 K/mm3 (1.3-6.7); Neutrophils Percent Auto 75.3 % (45.5-73.1); Platelet Count Result 377 k/mm3 (150-375); Red Blood Count 4.73 M/mm3 (4.2-5.4); Red Cell Distribution Width 15.3 % (11.5-14.5); White Blood Count 10.4 K/mm3 (4.5-10.0)
[2022-07-09 08:56] LABS: Anion Gap 7 mmol/L (8-16); Blood Urea Nitrogen 11 mg/dL (7-17); Calcium 8.7 mg/dL (8.4-10.2); Carbon Dioxide 28 mmol/L (22-30); Chloride 103 mmol/L (98-107); Estimated CRCL calculation 97 ml/min; Estimated Glomerular Filt Rate > 60; Glucose 186 mg/dL (65-110); Potassium 4.5 mmol/L (3.4-5.0); Sodium 138 mmol/L (137-145)
[2022-07-09 09:00] VITALS: PULSE 78; RESP 18; O2SAT 92
--- NOTE | 2022-07-09 10:36 | PM.IMPN ---
Progress Note: A&P Assessment and Plan (1) Pneumonia: Code(s): J18.9 - Pneumonia, unspecified organism Status: Acute Assessment and Plan: Continue IV antibiotics. She is having some pain in her left shoulder and left neck. Could be pleuritic pain. Will get MRI of her cervical spine as well. (2) Respiratory failure with hypoxia: Code(s): J96.91 - Respiratory failure, unspecified with hypoxia Status: Acute Assessment and Plan: Monitor, oxygen as needed. (3) Pleuritic chest pain: Code(s): R07.81 - Pleurodynia Status: Acute (4) Other and unspecified hyperlipidemia: Code(s): E78.5 - Hyperlipidemia, unspecified Status: Acute (5) Type 2 diabetes mellitus: Qualifiers: Diabetes mellitus termite exterminator insulin use: without skilled nursing use Diabetes mellitus complication status: without complication Qualified Code(s): E11.9 - Type 2 diabetes mellitus without complications Code(s): E11.9 - Type 2 diabetes mellitus without complications Status: Acute (6) Obstructive sleep apnea: Code(s): G47.33 - Obstructive sleep apnea (adult) (pediatric) Status: Acute (7) Essential (primary) hypertension: Code(s): I10 - Essential (primary) hypertension Status: Acute Subjective Date/time seen: 07/09/22 10:36 No new complaints Exam Narrative: General: alert and oriented Psych: appropriate mood nad affect Eyes: PERRLA Neck: Trachea midline, no new lesions Skin: no changes Lungs: CTA Cardiac: Normal S1,S2, no MGR ABD: soft, nd, nt, nbs Ext: no new lesions, no cce Vasc: Pulses intact Objective Data Vital Signs Vital Signs: Vital Signs - 24 hr 07/08/22 14:00 07/08/22 21:30 07/09/22 06:00 Temperature 97.5 F L 98 F 98.7 F Pulse Rate 80 78 79 Respiratory Rate 14 16 18 Blood Pressure 117/64 122/59 L 134/73 Pulse Oximetry 91 93 92 Oxygen Delivery Oxygen Flow Rate 07/09/22 09:00 Temperature Pulse Rate 78 Respiratory Rate 18 Blood Pressure Pulse Oximetry 92 Oxygen Delivery Nasal Cannula Oxygen Flow Rate 2 Intake/Output Intake/Output: Intake & Output 03/08/23 03/09/23 03/10/23 03/11/23 23:59 23:59 23:59 23:59 Intake Total 2760 2990 2870 730 Output Total 1700 Balance 2760 2990 1170 730 Meds/Results Medications: Active Medications Generic Name Dose Route Start Last Admin Trade Name Freq PRN Reason Stop Dose Admin Hydrocodone Bitart/Acetaminophen 1 tab 07/06/22 06:01 07/07/22 21:02 Hydrocodone/Acetaminophen (*Crx) 5-325 Mg Tablet PO 1 tab Q4H PRN Administration Pain Rated 4-6 Amlodipine Besylate 10 mg 07/07/22 09:00 07/09/22 08:27 Amlodipine Besylate 5 Mg Tablet PO 10 mg QAM SAJAN Administration Cyclobenzaprine HCl 5 mg 07/06/22 14:29 07/07/22 09:00 Cyclobenzaprine Hcl 5 Mg Tablet PO 5 mg DAILY PRN Administration Muscle Spasm Dicyclomine HCl 20 mg 07/06/22 06:01 07/06/22 12:57 Dicyclomine Hcl Inj 20 Mg/2 Ml Vial IM 20 mg Q6H PRN Administration Abdominal Cramping Hydralazine HCl 25 mg 07/06/22 21:00 07/09/22 08:27 Hydralazine Hcl 25 Mg Tablet PO 25 mg Q12HR SAJAN Administration Hydromorphone HCl 0.5 mg 07/06/22 06:01 07/07/22 03:56 Hydromorphone Hcl Inj (*Crx) 1 Mg/Ml Syr IV PUSH 0.5 mg Q4H PRN Administration Pain Rated 7-10 Ceftriaxone Sodium 1 gm in 50 mls @ 100 mls/hr 07/07/22 06:00 07/09/22 05:52 Rocephin 1 Gm/Ns 50 Ml IVPB 100 mls/hr Q24H SAJAN Administration Azithromycin 500 mg in 250 mls @ 250 mls/hr 07/07/22 06:00 07/09/22 05:52 Zithromax IVPB 250 mls/hr Q24H SAJAN Administration Losartan Potassium 100 mg 07/06/22 21:00 07/09/22 08:27 Losartan Potassium 100 Mg Tablet PO 100 mg Q12HR SAJAN Administration Magnesium Gluconate 13.5 mg 07/06/22 18:25 07/09/22 08:27 Magnesium 13.5 Mg Tablet (250 Mg Mag Gluconate) PO 13.5 mg DAILY SAJAN Administration Ondansetron H
[2022-07-09 11:18] LABS: Glucose Point of Care 79 mg/dl (65-105)
--- NOTE | 2022-07-09 11:49 | PM.DS ---
DS: Admitting Diagnosis Discharge Date July 09, 2022 Admitting Diagnosis Pneumonia DS: Discharge Diagnosis Discharge Diagnosis (1) Pneumonia: Code(s): J18.9 - Pneumonia, unspecified organism Status: Acute Assessment and Plan: Continue IV antibiotics. She is having some pain in her left shoulder and left neck. Could be pleuritic pain. Will get MRI of her cervical spine as well. (2) Respiratory failure with hypoxia: Code(s): J96.91 - Respiratory failure, unspecified with hypoxia Status: Acute Assessment and Plan: Monitor, oxygen as needed. (3) Pleuritic chest pain: Code(s): R07.81 - Pleurodynia Status: Acute (4) Other and unspecified hyperlipidemia: Code(s): E78.5 - Hyperlipidemia, unspecified Status: Acute (5) Type 2 diabetes mellitus: Qualifiers: Diabetes mellitus exterminator helper termite insulin use: without exterminator helper termite use Diabetes mellitus complication status: without complication Qualified Code(s): E11.9 - Type 2 diabetes mellitus without complications Code(s): E11.9 - Type 2 diabetes mellitus without complications Status: Acute (6) Obstructive sleep apnea: Code(s): G47.33 - Obstructive sleep apnea (adult) (pediatric) Status: Acute (7) Essential (primary) hypertension: Code(s): I10 - Essential (primary) hypertension Status: Acute DS: Summary Hospital Course Hospital Course: 71-year-old woman no prior pulmonary issues came in with shortness of breath and found have pneumonia. Patient will be discharged on antibiotics. She at 1 point required 4L of oxygen. She is down to 1-2 L of oxygen. We will have her evaluated for oxygen on discharge and get this set for home oxygen if needed. She will follow-up for 5 primary care physician. She will need a follow-up CT scan of her lungs in 3-6 months. Time Spent with Patient Time attestation: Total time spent providing and/or coordinating discharge services: Exam Narrative: General: alert and oriented Psych: appropriate mood nad affect Eyes: PERRLA Neck: Trachea midline, no new lesions Skin: no changes Lungs: CTA Cardiac: Normal S1,S2, no MGR ABD: soft, nd, nt, nbs Ext: no new lesions, no cce Vasc: Pulses intact DS: Data Data Completed and Pending Labs on day of discharge: Labs from last 24 hours 07/09/22 07/09/22 07/09/22 11:12 08:29 08:29 WBC 10.4 H RBC 4.73 Hgb 12.8 Hct 41.2 MCV 87.1 MCH 27.1 MCHC 31.1 L RDW 15.3 H Plt Count 377 H MPV 9.9 Immature Gran % (Auto) 0.4 Neut % (Auto) 75.3 H Lymph % (Auto) 15.1 L [place] % (Auto) 4.5 Eos % (Auto) 4.4 Baso % (Auto) 0.3 Lymph # (Auto) 1.56 [place] # (Auto) 0.5 Eos # (Auto) 0.5 H Baso # (Auto) 0.0 Abs Immat Gran (auto) 0.04 H Absolute Neuts (auto) 7.8 H Absolute Nucleated RBC 0.0 Nucleated RBC % 0.0 Sodium 138 Potassium 4.5 Chloride 103 Carbon Dioxide 28 Anion Gap 7 L BUN 11 D Creatinine 0.60 L Estim Creat Clear Calc 97 Estimated GFR > 60 Glucose 186 H POC Capillary Glucose 79 Calcium 8.7 07/09/22 07/08/22 07/08/22 08:07 17:19 11:57 WBC RBC Hgb Hct MCV MCH MCHC RDW Plt Count MPV Immature Gran % (Auto) Neut % (Auto) Lymph % (Auto) [place] % (Auto) Eos % (Auto) Baso % (Auto) Lymph # (Auto) [place] # (Auto) Eos # (Auto) Baso # (Auto) Abs Immat Gran (auto) Absolute Neuts (auto) Absolute Nucleated RBC Nucleated RBC % Sodium Potassium Chloride Carbon Dioxide Anion Gap BUN Creatinine Estim Creat Clear Calc Estimated GFR Glucose POC Capillary Glucose 123 H 201 H 95 Calcium Preliminary micro results at discharge 07/06/22 06:25 Blood Culture - Preliminary Blood 07/06/22 06:25 Blood Culture - Preliminary Blood Discharge Plan Discharge Attending
[2022-07-09 12:20] VITALS: PULSE 81; O2SAT 94
[2022-07-09 12:35] VITALS: PULSE 98; O2SAT 90
[2022-07-09 12:40] VITALS: PULSE 75; O2SAT 93
--- NOTE | 2022-07-09 12:42 | HOMEO2EVAL ---
Evaluation was performed at [facility] Home Oxygen Evaluation RC: Home Oxygen (O2) Evaluation Start: 07/09/22 11:50 Freq: ONCE Status: Active Protocol: RPE Activity Type Activity Date Activity User E-sign Co-sign Detail Recorded Client Recorded Date Recorded By Document 07/09/22 12:20 [email or web address] [email or web address] 07/09/22 12:39 VLS Document 07/09/22 12:35 [email or web address] [email or web address] 07/09/22 12:41 VLS Document 07/09/22 12:40 [email or web address] [email or web address] 07/09/22 12:42 VLS 07/09/22 07/09/22 07/09/22 12:20 12:35 12:40 Home O2 Evaluation [Oxygen] -Test Phase Resting Exercise Resting -Oxygen Delivery Room Air Room Air Room Air [Pulse Oximetry] -Pulse Oximetry (90-100 %) 94 90 93 [Pulse Rate] -Pulse Rate (60-100 beats/min) 81 98 75 [Evaluation] -Activity Tolerance Excellent Excellent [Exercise] -Ambulation Distance (feet) 400 -Ambulation Distance (meters) 121.91 [Charges] -Treatment Charges O2 Evaluation - Inpatient
--- NOTE | 2022-07-09 12:42 | PCRCNOTE ---
Pt tolerated home O2 evaluation well. Pt did not qualify for home O2. Rn notified
== END 2022-07-09 13:40 | disposition home or self-care (01) | DRG 193 ==
LOC: ANHED 07-06 05:59 → ANH3MEDSUR 07-06 07:08
PROVIDERS: Admitting Provider Internal Medicine; Emergency Provider Emergency Medicine; PCP Internal Medicine; Visit Provider Chiropractor
DX: J18.9 Pneumonia, unspecified organism (principal); J96.01 Acute respiratory failure with hypoxia; R07.81 Pleurodynia; E78.5 Hyperlipidemia, unspecified; E11.9 Type 2 diabetes mellitus without complications; G47.33 Obstructive sleep apnea (adult) (pediatric); I10 Essential (primary) hypertension; Z20.822 Contact with and (suspected) exposure to COVID-19; D64.9 Anemia, unspecified; Z96.659 Presence of unspecified artificial knee joint; Z90.49 Acquired absence of other specified parts of digestive tract; Z90.710 Acquired absence of both cervix and uterus; Z98.84 Bariatric surgery status
CPT/HCPCS: 36415; 71045; 71046; 71275; 72141; 80048; 80053; 82948; 83690; 83880; 84484; 85025; 85610; 85730; 87040; 87637; 93005; 94618; 94640; 96361; 96365; 96367; 96375; 99285; A9270; G0378; J0456; J0500; J0696; J1170; J1940; J7120; Q9967

== ENCOUNTER 2022-07-28 17:34 | Inpatient (IN) | payer OTHER, SELFPAY ==
[2022-07-28] VITALS (16 sets, daily range): BP systolic 100–188; BP diastolic 66–102; PULSE 70–87; RESP 13–22; TEMP 36.6; O2SAT 91–95
--- NOTE | ~2022-07-28 | XR_ITS ---
EXAMINATION: XR chest 1V portable DATE: 08/02/2022 13:15 INDICATION: Pneumonia. Follow-up. TECHNIQUE: A single frontal view of the chest was obtained. COMPARISON: Chest single view 07/31/2022, chest CT 07/28/2022 FINDINGS: There are airspace opacities in right lower lung zone. There is mild atelectasis in left mi dlung zone. There is chronic blunting of left lateral costophrenic angle. No pleural effusion or pneu mothorax. The heart size is normal. There are surgical clips in the abdomen. IMPRESSION: 1. Stable airspace opacities in right lower lung zone, consistent with pneumonia. Reviewed, dictated and finalized at location A. IMPRESSION: 1. Stable airspace opacities in right lower lung zone, consistent with pneumoni a.
--- NOTE | ~2022-07-28 | XR_ITS ---
EXAMINATION: XR chest 1V portable DATE: 07/31/2022 08:40 INDICATION: Shortness of breath. TECHNIQUE: A single frontal view of the chest was obtained. COMPARISON: Chest single view 07/28/2022, chest CT 07/28/2022 FINDINGS: There is discoid atelectasis in left midlung zone. There are airspace opacities in the lowe r lung zones. No pleural effusion or pneumothorax. The heart size is normal. There are surgical clips in the abdomen. IMPRESSION: 1. Airspace opacities in the lower lung zones with interval improvement, consistent with pneumonia. Reviewed, dictated and finalized at location A. IMPRESSION: 1. Airspace opacities in the lower lung zones with interval improvement, consis tent with pneumonia.
--- NOTE | ~2022-07-28 | XR_ITS ---
EXAMINATION: XR chest 1V portable INDICATION: Shortness of breath TECHNIQUE: Portable AP chest at 1800 hours COMPARISON: 07/08/2022 FINDINGS: Cardiomegaly is noted. There are opacities throughout the right lung and in the left mid an d lower lung zones. No pleural effusion or pneumothorax. IMPRESSION: 1. Diffuse lung disease, consistent with atelectasis versus pneumonia versus pulmonary edema. 2. Cardiomegaly. Reviewed, dictated and finalized at location F. IMPRESSION: 1. Diffuse lung disease, consistent with atelectasis versus pneumonia versus pu lmonary edema. 2. Cardiomegaly.
--- NOTE | ~2022-07-28 | CT_ITS ---
EXAMINATION: CTA chest PE protocol DATE: 07/28/2022 19:58 INDICATION: Chest pain and shortness of breath TECHNIQUE: Computed tomography angiography (CTA) of the chest was performed with 100 mL Omnipaque-350 intravenous contrast timed to evaluate the pulmonary arteries. Coronal maximum intensity projection 3D-reconstructions were created by the technologist. The dose-length product (DLP) was 803.56 mGy-cm. Automated exposure control and iterative reconstruction technique were employed. COMPARISON: 07/06/2022 FINDINGS: The pulmonary arteries are well-opacified. No pulmonary embolism is identified. There are o pacities throughout all lobes of the lungs, right worse than left. No pleural effusion or pneumothora x. The heart size is normal. There is mild bilateral hilar lymphadenopathy, likely reactive. There ar e surgical changes in the stomach. There are bridging osteophytes at multiple levels in the spine, co nsistent with diffuse idiopathic skeletal hyperostosis (DISH). IMPRESSION: 1. No pulmonary embolus identified. 2. Diffuse lung disease, right greater than left, consistent with pneumonia/or pulmonary edema. Reviewed, dictated and finalized at location F.
--- NOTE | 2022-07-28 17:51 | ECG_ITS ---
Measurements Intervals Slater Rate: 69 P: 52 IA: 197 QRS: -46 QRSD: 98 T: 59 QT: 366 QTc: 394 Interpretive Statements SINUS RHYTHM LEFT ANTERIOR FASCICULAR BLOCK LEFT VENTRICULAR HYPERTROPHY AND ST-T CHANGE BASELINE WANDER- I, II, V1-V2 ABNORMAL ECG COMPARED TO ECG 07/05/2022 22:36:24 LEFT ANTERIOR FASCICULAR BLOCK NOW PRESENT Electronically Signed On 07-28-2022 22:35:15 CDT by Tk Ray D.O.
--- NOTE | 2022-07-28 17:58 | ED.GENADULT ---
HPI - General Adult General Chief complaint: Shortness of Breath/Dyspnea Stated complaint: pneumonia? Time Seen by Provider: 07/28/22 17:45 Source: RN notes reviewed History of Present Illness HPI narrative: Patient presents emergency department from home for shortness of breath. Patient states she has been feeling progressively more short of breath for the past 5 days. States she has had a cough this been productive of yellow sputum states that she also has had midsternal chest pain described as a tightness in nature. States that shortness of breath is worse when she gets up to ambulate. She denies any fevers or chills she denies any abdominal pain nausea or vomiting. States he was recently admitted to the hospital for pneumonia and had been discharged with antibiotics that she had fully finished. She denies any history of COPD patient was noted to be hypoxic with an O2 saturation of 86% by nursing staff in triage and placed on nasal cannula Related Data Home Medications Medication Instructions Recorded Confirmed magnesium 250 mg tablet 250 mg PO DAILY 01/15/21 07/13/22 Allergies Allergy/AdvReac Type Severity Reaction Status Date / Time codeine Allergy Unknown Swelling Verified 07/13/22 08:40 of Lip/Tongue/Throat Review of Systems Review of Systems: Gen.: Denies fevers or chills ENT: Denies congestion Respiratory: see HPI CV: Reports chest pain GI: Denies abdominal pain nausea, emesis or diarrhea Musculoskeletal: Denies back pain or muscle pain Neuro: Denies numbness, tingling, weakness or focal weakness Skin: Denies rash Except as documented, all other systems reviewed and negative PMFSH Past Medical History Medical History Anemia Anemia Essential (primary) hypertension Obstructive sleep apnea Screening for breast cancer Screening for colon cancer Screening for osteoporosis Shortness of breath Skin cyst L axilla Surgical History Surgical History H/O gastric bypass H/O: hysterectomy History of cholecystectomy Hx of appendectomy Knee joint replacement status Family History Family History Father Diabetes mellitus Family history of coronary artery disease Daughter Throat cancer Acute myocardial infarction Under the age of 50. Smoker Sibling Lung cancer Mother Pancreas cancer Sibling Bone cancer Sibling Heart attack Social History Social History Social History: Patient has never smoked cigarettes and does not participate and marijuana. She does not drink alcohol. 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 If she was unable to make decisions she would like Karishma Mcdonald, her daughter, to make decisions for her Smoking status: Never smoker Second hand tobacco smoke exposure: Yes Alcohol intake: never Substance use: never Substance use type: does not use Lack of Transportation: No Lack of Food: Never True Current Housing: I Have Housing Concerned About Future Housing: No Difficulty Paying Gas/Electric Bills: No Difficulty Paying for Meds: No Currently Unemployed: No Education: High School Diploma/GED Difficulty w/ Childcare or Family Care: No Living arrangements: with family Gender identity (if verbalized by the patient): Female Spiritual care concerns: No Agree to blood products: Yes Exam Narrative: APPEARANCE: Mild respiratory distress nontoxic, resting in bed EYES: EOMI HEENT: Normocephalic, atraumatic, OMM RESPIRATORY: Mild respiratory distress, wheezing throughout the bilateral upper lung castañeda decreased breath sounds in the bases CARDIOVASCULAR: Regular rate and rhythm without murmurs rubs or gallops. ABDOMINAL: Soft, nontender, nondistended, no rebo
[2022-07-28 18:09] LABS: Basophils Percent Auto 0.4 % (0.2-1.2); Eosinophils Absolute Auto 0.9 K/mm3 (0-0.3); Eosinophils Percent Auto 8.4 % (0-4.4); Hematocrit 39.4 % (37.0-47.0); Hemoglobin 12.6 g/dL (12.0-15.0); Immature Granulocyte Absolute 0.04 K/mm3 (0.00-0.031); Immature Granulocyte Percent A 0.4 % (0-0.5); Lymphocytes Absolute Auto 2.15 K/mm3 (0.9-3.2); Lymphocytes Percent Auto 19.7 % (18.3-44.2); Mean Corpuscular Hemoglobin 26.4 pg (26-34); Mean Corpuscular Volume 82.4 fl (80-100); Mean Platelet Volume 9.7 fl (7.4-10.4); Monocytes Absolute Auto 0.8 K/mm3 (0.1-0.6); Monocytes Percent Auto 7.3 % (2.6-8.5); Neutrophils Percent Auto 63.8 % (45.5-73.1); Platelet Count Result 377 k/mm3 (150-375); Red Blood Count 4.78 M/mm3 (4.2-5.4); Red Cell Distribution Width 15.4 % (11.5-14.5); White Blood Count 10.9 K/mm3 (4.5-10.0)
[2022-07-28 18:13] LABS: INR 1.1; Prothrombin Time 13.3 Seconds (11.1-14.7)
[2022-07-28 18:14] LABS: Partial Thromboplastin Time 32.8 SECONDS (22.3-36.8)
[2022-07-28 18:15] LABS: Alanine Aminotransferase 20 U/L (6-35); Albumin Level 4.2 g/dL (3.5-5.1); Alkaline Phosphatase 118 U/L (38-126); Anion Gap 8 mmol/L (8-16); Aspartate Amino Transferase 26 U/L (14-36); Bilirubin,Total 0.6 mg/dL (0.2-1.3); Blood Urea Nitrogen 13 mg/dL (7-17); Calcium 8.7 mg/dL (8.4-10.2); Carbon Dioxide 28 mmol/L (22-30); Chloride 102 mmol/L (98-107); Estimated CRCL calculation 82 ml/min; Estimated Glomerular Filt Rate > 60; Glucose 96 mg/dL (65-110); Potassium 3.9 mmol/L (3.4-5.0); Sodium 138 mmol/L (137-145)
[2022-07-28 18:15] LABS: Lactic Acid Reflex 0.9 mmol/L (0.7-2.0)
[2022-07-28] MEDS: methylPREDNISolone SOD SUCC 125 MG VIAL IV PUSH (18:25)
[2022-07-28 18:26] LABS: NT Pro B Type Natriuretic Pept 79 pg/mL (19.9-100); Troponin I < 0.012 ng/mL (0.000-0.034)
[2022-07-28] MEDS: IPRATROPIUM BR 0.02% INH SOLN 0.5 MG/2.5 ML VIAL INHALATION ×2 (18:29→20:56)
[2022-07-28] MEDS: LEVALBUTEROL NEB 1.25 MG/3 ML INHALATION ×2 (18:29→20:56)
[2022-07-28 19:14] LABS: Influenza A QL RT-PCR Negative (Negative); Influenza B QL RT-PCR Negative (Negative); RSV RNA, RT-PCR Negative (Negative); SARS-CoV-2 RNA PCR Negative
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
[2022-07-29] VITALS (10 sets, daily range): BP systolic 114–150; BP diastolic 57–136; PULSE 76–100; RESP 14–20; TEMP 36.1–36.6; O2SAT 90–97; BMI 46.2
[2022-07-29] MEDS: guaiFENesin 600 MG/DEXTROMETHORPHAN 30 MG SR TAB 12 HR 1 TAB PO ×3 (01:09→20:29)
[2022-07-29] MEDS: MELATONIN 5 MG TABLET PO ×2 (01:09→20:29)
--- NOTE | 2022-07-29 01:31 | ADMGEN ---
This patient, Clemencia Figueredo, was admitted to [facility] Surg Room 301-01. Patient/family oriented to hospital policies and general routines including ID bracelet, bed and alarms, visiting hours, pain management, procedures, bathroom and other care routines, personal items, smoking policy, room service/diet, and visiting hours. Information on how to activate the Rapid Response Team has been discussed. Patient/Family are encouraged to report perceived risks to care and to ask questions if they do not understand what they are told or what they should do.
--- NOTE | 2022-07-29 05:51 | PCRCNOTE ---
Window of time for tx passed, will continue as scheduled at 0800.
[2022-07-29 06:26] LABS: Basophils Percent Auto 0.2 % (0.2-1.2); Hematocrit 39.8 % (37.0-47.0); Hemoglobin 12.6 g/dL (12.0-15.0); Immature Granulocyte Absolute 0.02 K/mm3 (0.00-0.031); Immature Granulocyte Percent A 0.3 % (0-0.5); Lymphocytes Absolute Auto 0.86 K/mm3 (0.9-3.2); Lymphocytes Percent Auto 13.1 % (18.3-44.2); Mean Corpuscular HGB Conc 31.7 g/dl (32-36); Mean Corpuscular Hemoglobin 26.4 pg (26-34); Mean Corpuscular Volume 83.3 fl (80-100); Mean Platelet Volume 9.9 fl (7.4-10.4); Monocytes Absolute Auto 0.1 K/mm3 (0.1-0.6); Monocytes Percent Auto 1.7 % (2.6-8.5); Neutrophils Absolute Auto 5.6 K/mm3 (1.3-6.7); Neutrophils Percent Auto 84.7 % (45.5-73.1); Platelet Count Result 361 k/mm3 (150-375); Red Blood Count 4.78 M/mm3 (4.2-5.4); Red Cell Distribution Width 15.3 % (11.5-14.5); White Blood Count 6.6 K/mm3 (4.5-10.0)
[2022-07-29 06:39] LABS: Anion Gap 9 mmol/L (8-16); Blood Urea Nitrogen 14 mg/dL (7-17); Carbon Dioxide 28 mmol/L (22-30); Chloride 101 mmol/L (98-107); Potassium 4.6 mmol/L (3.4-5.0); Sodium 138 mmol/L (137-145)
[2022-07-29 06:40] LABS: Alanine Aminotransferase 21 U/L (6-35); Albumin Level 4.2 g/dL (3.5-5.1); Alkaline Phosphatase 109 U/L (38-126); Aspartate Amino Transferase 25 U/L (14-36); Bilirubin,Total 0.5 mg/dL (0.2-1.3); Calcium 8.7 mg/dL (8.4-10.2); Estimated CRCL calculation 95 ml/min; Estimated Glomerular Filt Rate > 60; Glucose 165 mg/dL (65-110)
[2022-07-29 07:43] LABS: Glucose Point of Care 171 mg/dl (65-105)
[2022-07-29] MEDS: hydrALAZINE HCL 25 MG TABLET PO ×2 (08:29→16:59)
[2022-07-29] MEDS: ENOXAPARIN 40 MG/0.4 ML SYRINGE SUB-Q (08:29)
[2022-07-29] MEDS: LOSARTAN POTASSIUM 100 MG TABLET PO (08:29)
[2022-07-29] MEDS: MAGNESIUM OXIDE 200 MG TABLET PO (08:29)
[2022-07-29] MEDS: amLODIPine BESYLATE 5 MG TABLET 10 MG PO (08:29)
[2022-07-29] MEDS: FAMOTIDINE 20 MG TABLET PO (08:29)
[2022-07-29] MEDS: metFORMIN HCL 500 MG TABLET PO ×2 (08:30→16:59)
[2022-07-29] MEDS: IPRATROPIUM BR 0.02% INH SOLN 0.5 MG/2.5 ML VIAL INHALATION ×3 (08:56→21:29)
[2022-07-29] MEDS: LEVALBUTEROL NEB 1.25 MG/3 ML 0.63 MG INHALATION ×3 (08:57→21:29)
--- NOTE | 2022-07-29 10:12 | PM.IMPN ---
Progress Note: A&P Assessment and Plan (1) Acute respiratory failure with hypoxia: Code(s): J96.01 - Acute respiratory failure with hypoxia Status: Acute Assessment and Plan: Acute respiratory failure with hypoxia. Likely due to underlying pneumonia. Continue with Levaquin and vancomycin. Will check a MRSA swab to see if we can narrow antibiotic coverage. Will also check urine Legionella and pneumococcal antigens as well as mycoplasma titer. (2) Pneumonia: Code(s): J18.9 - Pneumonia, unspecified organism Status: Acute Assessment and Plan: Please see above plan. Blood cultures are pending. The patient's white count is not particularly elevated. Patient does not meet sepsis criteria. Will adjust antibiotic therapy as discussed above. Will add Mucinex DM 12 hour and pulmonary toilet. (3) Type 2 diabetes mellitus: Qualifiers: Diabetes mellitus intermission coordinator insulin use: without intermission coordinator use Diabetes mellitus complication status: without complication Qualified Code(s): E11.9 - Type 2 diabetes mellitus without complications Code(s): E11.9 - Type 2 diabetes mellitus without complications Status: Acute Assessment and Plan: Will monitor Accu-Cheks closely a.c. hs and will add sliding scale insulin as needed. Will continue home metformin once patient's home med rec has been reconciled by nursing staff. Will add hypoglycemia protocol as needed. (4) Morbid obesity with BMI of 45.0-49.9, adult: Code(s): E66.01 - Morbid (severe) obesity due to excess calories; Z68.42 - Body mass index [BMI] 45.0-49.9, adult Status: Acute Assessment and Plan: The patient would benefit from diet lifestyle modification. (5) Obstructive sleep apnea: Code(s): G47.33 - Obstructive sleep apnea (adult) (pediatric) Status: Acute Assessment and Plan: The patient would likely benefit from repeat polysomnogram and or intermittent BiPAP use for respiratory support during hospitalization. However patient refuses and states that she is intolerant to CPAP/BiPAP. Subjective Date/time seen: 07/29/22 10:12 Patient states her breathing is somewhat better. Still has productive cough Review of Systems Review of Systems: 12 systems were reviewed with pertinent positives and negatives per HPI. Except as documented in the HPI, all other systems were reviewed and are negative. Exam Narrative: Weight 126 kg BMI 46.2 Const: Other: Morbidly obese, mildly ill-appearing, sitting up in bed was is a bed at 40? Eyes: Other: Pupils are equal and reactive with evidence of bilateral lens replacement, no scleral icterus, no conjunctival pallor Neck: Other: Large neck circumference, no gross lymphadenopathy Chest: Other: Equal chest expansion, no crepitus Resp: Other: Decreased breath sounds at the bases bilaterally, crackles anterior mid lung castañeda, conversational dyspnea Cardio: Other: Regular rate, regular rhythm, 2+ bilateral radial pedal pulses, no JVD GI: Other: Obese, nontender, positive bowel sounds Back/Spine/Pelvis: Other: Mild thoracic kyphosis Skin: Other: No jaundice, no pallor, diaphoretic, warm to touch Neuro: Other: Alert and oriented, speech is clear, no facial asymmetry, no localizing neurologic deficits noted during the course of conversation, patient is able to sit up in bed unassisted Extrem: Other: No clubbing, cyanosis or edema, no foot wounds Psych: Other: Appropriate mood and affect, pleasant and cooperative, judgment and insight intact Objective Data Vital Signs Vital Signs: Vital Signs - 24 hr 07/28/22 17:46 07/28/22 18:32 07/28/22 17:50 Temperature 98 F Pulse Rate 87 70 75 Respiratory Rate 19 13 17 Blood Pressure 147/66 H 147/66 H Pulse Oximetry 91 94 Oxygen Delivery Nasal Cannula Oxygen Flow Rate 2 07/28/22 18:02 07/28/22 18:17 07/28/22 18:30 Temperature Pulse Rate 7
[2022-07-29 12:14] LABS: Glucose Point of Care 182 mg/dl (65-105)
--- NOTE | 2022-07-29 15:37 | PCSTNOTE ---
Please refer to the Bedside Swallow Evaluation in the EMR. Please note, silent aspiration cannot be ruled out at bedside.
[2022-07-29 17:22] LABS: Glucose Point of Care 128 mg/dl (65-105)
[2022-07-29] MEDS: ACETAMINOPHEN 325 MG TABLET 650 MG PO (18:29)
[2022-07-29 23:19] LABS: Glucose Point of Care 128 mg/dl (65-105)
[2022-07-30] VITALS (10 sets, daily range): BP systolic 95–130; BP diastolic 66–75; PULSE 61–80; RESP 18–20; TEMP 35.7–36.1; O2SAT 90–97
[2022-07-30] MEDS: ACETAMINOPHEN 325 MG TABLET 650 MG PO ×2 (05:54→19:41)
[2022-07-30 07:52] LABS: Glucose Point of Care 99 mg/dl (65-105)
[2022-07-30] MEDS: IPRATROPIUM BR 0.02% INH SOLN 0.5 MG/2.5 ML VIAL INHALATION ×3 (08:19→19:53)
[2022-07-30] MEDS: LEVALBUTEROL NEB 1.25 MG/3 ML 0.63 MG INHALATION ×3 (08:19→19:53)
[2022-07-30] MEDS: FAMOTIDINE 20 MG TABLET PO (08:39)
[2022-07-30] MEDS: MAGNESIUM OXIDE 200 MG TABLET PO (08:39)
[2022-07-30] MEDS: guaiFENesin 600 MG/DEXTROMETHORPHAN 30 MG SR TAB 12 HR 1 TAB PO ×2 (08:39→20:37)
[2022-07-30] MEDS: LOSARTAN POTASSIUM 100 MG TABLET PO (08:39)
[2022-07-30] MEDS: ENOXAPARIN 40 MG/0.4 ML SYRINGE SUB-Q (08:39)
[2022-07-30] MEDS: metFORMIN HCL 500 MG TABLET PO ×2 (08:39→17:01)
[2022-07-30] MEDS: hydrALAZINE HCL 25 MG TABLET PO ×2 (08:39→17:01)
[2022-07-30] MEDS: amLODIPine BESYLATE 5 MG TABLET 10 MG PO (08:39)
[2022-07-30 09:49] LABS: Hematocrit 37.5 % (37.0-47.0); Hemoglobin 11.9 g/dL (12.0-15.0); Mean Corpuscular HGB Conc 31.7 g/dl (32-36); Mean Corpuscular Hemoglobin 26.5 pg (26-34); Mean Corpuscular Volume 83.5 fl (80-100); Mean Platelet Volume 9.6 fl (7.4-10.4); Platelet Count Result 376 k/mm3 (150-375); Red Blood Count 4.49 M/mm3 (4.2-5.4); Red Cell Distribution Width 15.5 % (11.5-14.5); White Blood Count 10.9 K/mm3 (4.5-10.0)
[2022-07-30 10:06] LABS: Vancomycin Trough 20.3 ug/mL (10.0-20.0)
[2022-07-30 10:10] LABS: Anion Gap 10 mmol/L (8-16); Blood Urea Nitrogen 25 mg/dL (7-17); Calcium 8.5 mg/dL (8.4-10.2); Carbon Dioxide 27 mmol/L (22-30); Chloride 99 mmol/L (98-107); Estimated CRCL calculation 65 ml/min; Estimated Glomerular Filt Rate > 60; Glucose 142 mg/dL (65-110); Potassium 4.1 mmol/L (3.4-5.0); Sodium 136 mmol/L (137-145)
--- NOTE | 2022-07-30 10:26 | PM.IMPN ---
Progress Note: A&P Assessment and Plan (1) Acute respiratory failure with hypoxia: Code(s): J96.01 - Acute respiratory failure with hypoxia Status: Acute Assessment and Plan: Acute respiratory failure with hypoxia. Likely due to underlying pneumonia. Continue with Levaquin and vancomycin. MRSA swab negative but blood cultures growing gram positive cocci in aerobic bottle. urine Legionella and pneumococcal antigens as well as mycoplasma titer pending. (2) Pneumonia: Code(s): J18.9 - Pneumonia, unspecified organism Status: Acute Assessment and Plan: Blood culture growing Gram-positive cocci in clusters in 1 bottle. will adjust antibiotic therapy as discussed above. Will add Mucinex DM 12 hour and pulmonary toilet. (3) Type 2 diabetes mellitus: Qualifiers: Diabetes mellitus custodial insulin use: without custodial use Diabetes mellitus complication status: without complication Qualified Code(s): E11.9 - Type 2 diabetes mellitus without complications Code(s): E11.9 - Type 2 diabetes mellitus without complications Status: Acute Assessment and Plan: Will monitor Accu-Cheks closely a.c. hs and will add sliding scale insulin as needed. Will continue home metformin once patient's home med rec has been reconciled by nursing staff. Will add hypoglycemia protocol as needed. (4) Morbid obesity with BMI of 45.0-49.9, adult: Code(s): E66.01 - Morbid (severe) obesity due to excess calories; Z68.42 - Body mass index [BMI] 45.0-49.9, adult Status: Acute Assessment and Plan: The patient would benefit from diet lifestyle modification. (5) Obstructive sleep apnea: Code(s): G47.33 - Obstructive sleep apnea (adult) (pediatric) Status: Acute Assessment and Plan: The patient would likely benefit from repeat polysomnogram and or intermittent BiPAP use for respiratory support during hospitalization. However patient refuses and states that she is intolerant to CPAP/BiPAP. Subjective Date/time seen: 07/30/22 10:26 Patient states she is still coughing up a lot Review of Systems Review of Systems: 12 systems were reviewed with pertinent positives and negatives per HPI. Except as documented in the HPI, all other systems were reviewed and are negative. Exam Const: Other: Morbidly obese, mildly ill-appearing Eyes: Other: Pupils are equal and reactive with evidence of bilateral lens replacement, no scleral icterus, no conjunctival pallor Neck: Other: Large neck circumference, no gross lymphadenopathy Chest: Other: Equal chest expansion, no crepitus Resp: Other: Decreased breath sounds at the bases bilaterally, crackles anterior mid lung castañeda, conversational dyspnea Cardio: Other: Regular rate, regular rhythm, 2+ bilateral radial pedal pulses, no JVD GI: Other: Obese, nontender, positive bowel sounds Back/Spine/Pelvis: Other: Mild thoracic kyphosis Skin: Other: No jaundice, no pallor, diaphoretic, warm to touch Neuro: Other: Alert and oriented, speech is clear, no facial asymmetry, no localizing neurologic deficits noted during the course of conversation, patient is able to sit up in bed unassisted Extrem: Other: No clubbing, cyanosis or edema, no foot wounds Psych: Other: Appropriate mood and affect, pleasant and cooperative, judgment and insight intact Objective Data Vital Signs Vital Signs: Vital Signs - 24 hr 07/29/22 13:50 07/29/22 14:00 07/29/22 14:00 Temperature 97.8 F Pulse Rate 90 100 78 Respiratory Rate 20 20 16 Blood Pressure 150/136 H Pulse Oximetry 97 Oxygen Delivery Oxygen Flow Rate 07/29/22 21:37 07/29/22 21:59 07/30/22 05:27 Temperature 97 F L 97 F L Pulse Rate 87 76 80 Respiratory Rate 14 16 18 Blood Pressure 114/59 L 124/75 Pulse Oximetry 93 90 Oxygen Delivery Oxygen Flow Rate 07/30/22 08:22 07/30/22 08:22 07/30/22 08:35 Temperature
[2022-07-30 11:37] LABS: Glucose Point of Care 95 mg/dl (65-105)
[2022-07-30 16:44] LABS: Glucose Point of Care 111 mg/dl (65-105)
[2022-07-30] MEDS: MELATONIN 5 MG TABLET PO (20:37)
[2022-07-30 21:23] LABS: Glucose Point of Care 107 mg/dl (65-105)
[2022-07-31] VITALS (15 sets, daily range): BP systolic 106–125; BP diastolic 56–62; PULSE 64–76; RESP 14–20; TEMP 36.1–36.4; O2SAT 93–96
[2022-07-31] MEDS: LEVALBUTEROL NEB 1.25 MG/3 ML 0.63 MG INHALATION ×4 (02:13→20:15)
[2022-07-31] MEDS: IPRATROPIUM BR 0.02% INH SOLN 0.5 MG/2.5 ML VIAL INHALATION ×4 (02:13→20:15)
[2022-07-31 06:36] LABS: Estimated CRCL calculation 82 ml/min; Estimated Glomerular Filt Rate > 60
--- NOTE | 2022-07-31 08:11 | PCRCNOTE ---
pt stating she is having chest pain and pain with inspiration
[2022-07-31 08:12] LABS: Glucose Point of Care 101 mg/dl (65-105)
[2022-07-31 08:18] LABS: Anion Gap 6 mmol/L (8-16); Blood Urea Nitrogen 21 mg/dL (7-17); Carbon Dioxide 30 mmol/L (22-30); Chloride 102 mmol/L (98-107); Estimated CRCL calculation 82 ml/min; Estimated Glomerular Filt Rate > 60; Glucose 101 mg/dL (65-110); Potassium 4.3 mmol/L (3.4-5.0); Sodium 138 mmol/L (137-145)
[2022-07-31 08:37] LABS: Hematocrit 38.4 % (37.0-47.0); Hemoglobin 11.9 g/dL (12.0-15.0); Mean Corpuscular Hemoglobin 25.9 pg (26-34); Mean Corpuscular Volume 83.5 fl (80-100); Platelet Count Result 393 k/mm3 (150-375); Red Cell Distribution Width 15.4 % (11.5-14.5); White Blood Count 10.3 K/mm3 (4.5-10.0)
[2022-07-31] MEDS: FAMOTIDINE 20 MG TABLET PO (09:20)
[2022-07-31] MEDS: ACETAMINOPHEN 325 MG TABLET 650 MG PO (09:20)
[2022-07-31] MEDS: metFORMIN HCL 500 MG TABLET PO ×2 (09:20→17:02)
[2022-07-31] MEDS: guaiFENesin 600 MG/DEXTROMETHORPHAN 30 MG SR TAB 12 HR 1 TAB PO ×2 (09:20→20:53)
[2022-07-31] MEDS: ENOXAPARIN 40 MG/0.4 ML SYRINGE SUB-Q (09:20)
[2022-07-31] MEDS: MAGNESIUM OXIDE 200 MG TABLET PO (09:21)
[2022-07-31] MEDS: amLODIPine BESYLATE 5 MG TABLET 10 MG PO (09:21)
[2022-07-31] MEDS: hydrALAZINE HCL 25 MG TABLET PO ×2 (09:21→17:02)
[2022-07-31] MEDS: LOSARTAN POTASSIUM 100 MG TABLET PO (09:21)
[2022-07-31 11:43] LABS: Glucose Point of Care 103 mg/dl (65-105)
--- NOTE | 2022-07-31 14:20 | PCRCNOTE ---
pt refusing 1400 Vest treatment due to bilateral chest pain. RN aware. pt stated she would try again with next treatment at 1999.
--- NOTE | 2022-07-31 14:31 | PM.IMPN ---
Progress Note: A&P Assessment and Plan (1) Acute respiratory failure with hypoxia: Code(s): J96.01 - Acute respiratory failure with hypoxia Status: Acute Assessment and Plan: Acute respiratory failure with hypoxia. Likely due to underlying pneumonia. Patient recently diagnosed with pneumonia in early June of 2022 and was treated the hospital. Continue with Levaquin and vancomycin. Patient requiring increased oxygen demands. She required 2 L on admission in the since been weaned down to 1 L. Wean oxygen to maintain O2 saturation of greater than 90%. Patient does not have any known respiratory disease although it is recommended she follow-up for PFT. (2) Pneumonia: Code(s): J18.9 - Pneumonia, unspecified organism Status: Acute Assessment and Plan: Patient presents to the ED on 07/28/2022 with shortness of breath. Patient recently diagnosed with pneumonia in June of 2022 in which she was treated with ceftriaxone and azithromycin. Chest x-ray showing diffuse lung disease consistent with atelectasis versus pneumonia versus pulmonary edemaAs well as cardiomegaly. CTA chest negative for PE, diffuse lung disease right greater than left, consistent with pneumonia and/or pulmonary edema. Patient started on vancomycin and Levaquin IV. Sputum cultures pending Blood culture growing micrococcus luteus in 1 bottle which is likely a contamination. Will add Mucinex DM 12 hour and pulmonary toilet. guaifenesin for cough p.r.n. 4/2 Repeat chest x-ray revealing airspace opacities in the lower lung zones with interval improvement, consistent with pneumonia. Improved from previous x-ray. (3) Type 2 diabetes mellitus: Qualifiers: Diabetes mellitus complication status: without complication Diabetes mellitus retirement insulin use: without retirement use Qualified Code(s): E11.9 - Type 2 diabetes mellitus without complications Code(s): E11.9 - Type 2 diabetes mellitus without complications Status: Acute Assessment and Plan: Will monitor Accu-Cheks closely a.c. hs and will add sliding scale insulin as needed. Will continue home metformin once patient's home med rec has been reconciled by nursing staff. hypoglycemia protocol as needed. (4) Obstructive sleep apnea: Code(s): G47.33 - Obstructive sleep apnea (adult) (pediatric) Status: Acute Assessment and Plan: The patient would likely benefit from repeat polysomnogram and or intermittent BiPAP use for respiratory support during hospitalization. However patient refuses and states that she is intolerant to CPAP/BiPAP. Subjective Date/time seen: 07/31/22 14:31 Interval history: Patient up in chair. Patient states she is feeling better today although she still has. Patient requiring 1 L oxygen to maintain O2 saturation. Patient states she believes her mucus is pending. Patient's cough is not as violent as was upon presentation. Review of Systems Review of Systems: All systems reviewed & are unremarkable except as noted in HPI and below Exam Narrative: GENERAL: Comfortable, no acute distress HENMT: moist mucous membranes EYES: EOM intact b/l NECK: no lymphadenopathy RESPIRATORY:bilateral bibasilar crackles CARDIO: RRR GI: soft, nontender, bowel sounds present SKIN: no rashes EXTREMITIES: no edema, redness or tenderness Objective Data Vital Signs Vital Signs: Vital Signs - 24 hr 07/30/22 14:48 07/30/22 19:51 07/30/22 19:51 Temperature Pulse Rate 61 62 Respiratory Rate 20 20 Blood Pressure Pulse Oximetry 92 Oxygen Delivery Nasal Cannula Oxygen Flow Rate 2 07/30/22 20:08 07/30/22 21:26 07/31/22 02:11 Temperature 97 F L Pulse Rate 68 65 68 Respiratory Rate 18 18 18 Blood Pressure 130/66 Pulse Oximetry 93 Oxygen Delivery Oxygen Flow Rate 07/31/22 02:21 07/31/22 05:12 07/31/22 08:08
[2022-07-31 17:04] LABS: Glucose Point of Care 113 mg/dl (65-105)
[2022-07-31] MEDS: MELATONIN 5 MG TABLET PO (20:53)
[2022-07-31 21:00] LABS: Glucose Point of Care 122 mg/dl (65-105)
[2022-08-01] VITALS (13 sets, daily range): BP systolic 120–129; BP diastolic 58–72; PULSE 63–85; RESP 14–20; TEMP 36.1–36.5; O2SAT 92–100
[2022-08-01] MEDS: ACETAMINOPHEN 325 MG TABLET 650 MG PO ×2 (00:51→17:11)
[2022-08-01] MEDS: LEVALBUTEROL NEB 1.25 MG/3 ML 0.63 MG INHALATION ×4 (02:20→20:58)
[2022-08-01] MEDS: IPRATROPIUM BR 0.02% INH SOLN 0.5 MG/2.5 ML VIAL INHALATION ×4 (02:20→20:56)
[2022-08-01 07:07] LABS: Hematocrit 39.8 % (37.0-47.0); Hemoglobin 12.5 g/dL (12.0-15.0); Mean Corpuscular HGB Conc 31.4 g/dl (32-36); Mean Corpuscular Hemoglobin 26.4 pg (26-34); Mean Corpuscular Volume 84.1 fl (80-100); Mean Platelet Volume 9.8 fl (7.4-10.4); Platelet Count Result 402 k/mm3 (150-375); Red Blood Count 4.73 M/mm3 (4.2-5.4); Red Cell Distribution Width 15.2 % (11.5-14.5); White Blood Count 10.6 K/mm3 (4.5-10.0)
[2022-08-01 07:32] LABS: Anion Gap 6 mmol/L (8-16); Blood Urea Nitrogen 17 mg/dL (7-17); Calcium 8.7 mg/dL (8.4-10.2); Carbon Dioxide 31 mmol/L (22-30); Chloride 100 mmol/L (98-107); Estimated CRCL calculation 82 ml/min; Estimated Glomerular Filt Rate > 60; Glucose 105 mg/dL (65-110); Potassium 4.2 mmol/L (3.4-5.0); Sodium 137 mmol/L (137-145)
[2022-08-01 08:44] LABS: Glucose Point of Care 105 mg/dl (65-105)
[2022-08-01] MEDS: LOSARTAN POTASSIUM 100 MG TABLET PO (09:00)
[2022-08-01] MEDS: metFORMIN HCL 500 MG TABLET PO ×2 (09:00→17:03)
[2022-08-01] MEDS: guaiFENesin 600 MG/DEXTROMETHORPHAN 30 MG SR TAB 12 HR 1 TAB PO ×2 (09:00→20:03)
[2022-08-01] MEDS: amLODIPine BESYLATE 5 MG TABLET 10 MG PO (09:00)
[2022-08-01] MEDS: FAMOTIDINE 20 MG TABLET PO (09:00)
[2022-08-01] MEDS: ENOXAPARIN 40 MG/0.4 ML SYRINGE SUB-Q (09:00)
[2022-08-01] MEDS: MAGNESIUM OXIDE 200 MG TABLET PO (09:01)
[2022-08-01] MEDS: CEFEPIME 2 GM/NS 50 ML 2 GM/50 ML BAG IVPB ×2 (09:12→16:56)
[2022-08-01] MEDS: hydrALAZINE HCL 25 MG TABLET PO ×2 (10:45→17:03)
[2022-08-01 11:45] LABS: Glucose Point of Care 98 mg/dl (65-105)
--- NOTE | 2022-08-01 12:54 | PM.IMPN ---
Progress Note: A&P Assessment and Plan (1) Acute respiratory failure with hypoxia: Code(s): J96.01 - Acute respiratory failure with hypoxia Status: Acute Assessment and Plan: Acute respiratory failure with hypoxia. Likely due to underlying pneumonia. Patient recently diagnosed with pneumonia in early June of 2022 and was treated the hospital. Continue with Levaquin and vancomycin. Patient requiring increased oxygen demands. She required 2 L on admission in the since been weaned down to 1 L. Wean oxygen to maintain O2 saturation of greater than 90%. Patient does not have any known respiratory disease although it is recommended she follow-up for PFT. (2) Pneumonia: Code(s): J18.9 - Pneumonia, unspecified organism Status: Acute Assessment and Plan: Patient presents to the ED on 07/28/2022 with shortness of breath. Patient recently diagnosed with pneumonia in June of 2022 in which she was treated with ceftriaxone and azithromycin. Chest x-ray showing diffuse lung disease consistent with atelectasis versus pneumonia versus pulmonary edemaAs well as cardiomegaly. CTA chest negative for PE, diffuse lung disease right greater than left, consistent with pneumonia and/or pulmonary edema. Patient started on vancomycin and Levaquin IV. Sputum cultures pending Blood culture growing micrococcus luteus in 1 bottle which is likely a contamination. Will add Mucinex DM 12 hour and pulmonary toilet. guaifenesin for cough p.r.n. 07/31 Repeat chest x-ray revealing airspace opacities in the lower lung zones with interval improvement, consistent with pneumonia. Improved from previous x-ray. 08/01 MRSA swab negative and vancomycin discontinued. Cefepime started for MSSA and pseudomonal coverage. Discuss this with the ID pharmacist and will treat through 08/07/2022. Levaquin will be finished tomorrow. (3) Type 2 diabetes mellitus: Qualifiers: Diabetes mellitus complication status: without complication Diabetes mellitus computer terminal operator insulin use: without detention use Qualified Code(s): E11.9 - Type 2 diabetes mellitus without complications Code(s): E11.9 - Type 2 diabetes mellitus without complications Status: Acute Assessment and Plan: Will monitor Accu-Cheks closely a.c. hs and will add sliding scale insulin as needed. Will continue home metformin once patient's home med rec has been reconciled by nursing staff. hypoglycemia protocol as needed. (4) Obstructive sleep apnea: Code(s): G47.33 - Obstructive sleep apnea (adult) (pediatric) Status: Acute Assessment and Plan: The patient would likely benefit from repeat polysomnogram and or intermittent BiPAP use for respiratory support during hospitalization. However patient refuses and states that she is intolerant to CPAP/BiPAP. Subjective Date/time seen: 08/01/22 12:54 Interval history: Patient is up to chair with ex at bedside. Patient consented to discussing care in front of . Patient states that her shortness of breath has improved. Patient's cough is less frequent. Sputum is sitting and less yellow. Patient still requiring oxygen. Patient's vancomycin was discontinued and cefepime was added due to MRSA swab being negative. Patient's lungs are slowly improving but are still course. Review of Systems Review of Systems: All systems reviewed & are unremarkable except as noted in HPI and below Exam Narrative: GENERAL: Comfortable, no acute distress HENMT: moist mucous membranes EYES: EOM intact b/l NECK: no lymphadenopathy RESPIRATORY: bilateral bibasilar crackles CARDIO: RRR GI: soft, nontender, bowel sounds present SKIN: no rashes EXTREMITIES: no edema, redness or tenderness Objective Data Vital Signs Vital Signs: Vital Signs - 24 hr 07/31/22 13:59 07/31/22 14:12 07/31/22 14:22 Temperature 97.6 F Pulse Rate 6
[2022-08-01 19:25] LABS: Glucose Point of Care 116 mg/dl (65-105)
[2022-08-01] MEDS: MELATONIN 5 MG TABLET PO (21:16)
[2022-08-01 23:50] LABS: Pneumococcal Antigen Urine Not Detected (Not Detected)
[2022-08-02] VITALS (12 sets, daily range): BP systolic 108–120; BP diastolic 59–77; PULSE 61–80; RESP 14–20; TEMP 36.1–36.6; O2SAT 90–95
[2022-08-02] MEDS: CEFEPIME 2 GM/NS 50 ML 2 GM/50 ML BAG IVPB ×3 (00:52→18:14)
[2022-08-02] MEDS: IPRATROPIUM BR 0.02% INH SOLN 0.5 MG/2.5 ML VIAL INHALATION ×4 (02:30→21:40)
[2022-08-02] MEDS: LEVALBUTEROL NEB 1.25 MG/3 ML 0.63 MG INHALATION ×4 (02:32→21:40)
[2022-08-02 06:53] LABS: Basophils Percent Auto 0.3 % (0.2-1.2); Eosinophils Absolute Auto 0.8 K/mm3 (0-0.3); Eosinophils Percent Auto 8.1 % (0-4.4); Hematocrit 37.3 % (37.0-47.0); Hemoglobin 11.9 g/dL (12.0-15.0); Immature Granulocyte Absolute 0.05 K/mm3 (0.00-0.031); Immature Granulocyte Percent A 0.5 % (0-0.5); Lymphocytes Absolute Auto 2.11 K/mm3 (0.9-3.2); Lymphocytes Percent Auto 22.4 % (18.3-44.2); Mean Corpuscular HGB Conc 31.9 g/dl (32-36); Mean Corpuscular Hemoglobin 26.6 pg (26-34); Mean Corpuscular Volume 83.4 fl (80-100); Mean Platelet Volume 9.4 fl (7.4-10.4); Monocytes Absolute Auto 0.7 K/mm3 (0.1-0.6); Monocytes Percent Auto 7.3 % (2.6-8.5); Neutrophils Absolute Auto 5.8 K/mm3 (1.3-6.7); Neutrophils Percent Auto 61.4 % (45.5-73.1); Platelet Count Result 356 k/mm3 (150-375); Red Blood Count 4.47 M/mm3 (4.2-5.4); Red Cell Distribution Width 15.4 % (11.5-14.5); White Blood Count 9.4 K/mm3 (4.5-10.0)
[2022-08-02 07:04] LABS: Alanine Aminotransferase 23 U/L (6-35); Albumin Level 3.7 g/dL (3.5-5.1); Alkaline Phosphatase 86 U/L (38-126); Anion Gap 4 mmol/L (8-16); Aspartate Amino Transferase 26 U/L (14-36); Bilirubin,Total 0.5 mg/dL (0.2-1.3); Blood Urea Nitrogen 12 mg/dL (7-17); Calcium 8.5 mg/dL (8.4-10.2); Carbon Dioxide 33 mmol/L (22-30); Chloride 101 mmol/L (98-107); Estimated CRCL calculation 95 ml/min; Estimated Glomerular Filt Rate > 60; Glucose 104 mg/dL (65-110); Sodium 138 mmol/L (137-145)
[2022-08-02 07:44] LABS: Glucose Point of Care 107 mg/dl (65-105)
[2022-08-02] MEDS: ENOXAPARIN 40 MG/0.4 ML SYRINGE SUB-Q (08:49)
[2022-08-02] MEDS: MAGNESIUM OXIDE 200 MG TABLET PO (08:49)
[2022-08-02] MEDS: amLODIPine BESYLATE 5 MG TABLET 10 MG PO (08:49)
[2022-08-02] MEDS: hydrALAZINE HCL 25 MG TABLET PO ×2 (08:49→18:14)
[2022-08-02] MEDS: guaiFENesin 600 MG/DEXTROMETHORPHAN 30 MG SR TAB 12 HR 1 TAB PO ×2 (08:49→20:43)
[2022-08-02] MEDS: metFORMIN HCL 500 MG TABLET PO ×2 (08:49→18:14)
[2022-08-02] MEDS: FAMOTIDINE 20 MG TABLET PO (08:49)
[2022-08-02] MEDS: LOSARTAN POTASSIUM 100 MG TABLET PO (08:49)
--- NOTE | 2022-08-02 09:01 | PC.NURSE ---
O2 on at 1L/NC with sats at 98%. Pt placed on RA. Will monitor.
--- NOTE | 2022-08-02 09:35 | PC.NURSE ---
O2 saturation 94% on RA. Will monitor.
[2022-08-02 11:33] LABS: Glucose Point of Care 99 mg/dl (65-105)
--- NOTE | 2022-08-02 12:41 | PC.NURSE ---
o2 sats remain 99% on RA. Desats to 90% with coughing but recovers quickly. Offers not complaints. Will monitor.
--- NOTE | 2022-08-02 12:46 | PM.IMPN ---
Progress Note: A&P Assessment and Plan (1) Acute respiratory failure with hypoxia: Code(s): J96.01 - Acute respiratory failure with hypoxia Status: Acute Assessment and Plan: Acute respiratory failure with hypoxia. Likely due to underlying pneumonia. Patient recently diagnosed with pneumonia in early June of 2022 and was treated the hospital. Continue with Levaquin and vancomycin. Patient requiring increased oxygen demands. She required 2 L on admission in the since been weaned down to 1 L. Wean oxygen to maintain O2 saturation of greater than 90%. Patient does not have any known respiratory disease although it is recommended she follow-up for PFT. (2) Pneumonia: Code(s): J18.9 - Pneumonia, unspecified organism Status: Acute Assessment and Plan: Patient presents to the ED on 07/28/2022 with shortness of breath. Patient recently diagnosed with pneumonia in June of 2022 in which she was treated with ceftriaxone and azithromycin. Chest x-ray showing diffuse lung disease consistent with atelectasis versus pneumonia versus pulmonary edemaAs well as cardiomegaly. CTA chest negative for PE, diffuse lung disease right greater than left, consistent with pneumonia and/or pulmonary edema. Patient started on vancomycin and Levaquin IV. Sputum cultures pending Blood culture growing micrococcus luteus in 1 bottle which is likely a contamination. Will add Mucinex DM 12 hour and pulmonary toilet. guaifenesin for cough p.r.n. 07/31 Repeat chest x-ray revealing airspace opacities in the lower lung zones with interval improvement, consistent with pneumonia. Improved from previous x-ray. 08/01 MRSA swab negative and vancomycin discontinued. Cefepime started for MSSA and pseudomonal coverage. Discuss this with the ID pharmacist and will treat through 08/07/2022. 08/02 Levaquin finished today. Repeat cxr. Possible discharge tomorrow. (3) Type 2 diabetes mellitus: Qualifiers: Diabetes mellitus complication status: without complication Diabetes mellitus usp insulin use: without usp use Qualified Code(s): E11.9 - Type 2 diabetes mellitus without complications Code(s): E11.9 - Type 2 diabetes mellitus without complications Status: Acute Assessment and Plan: Will monitor Accu-Cheks closely a.c. hs and will add sliding scale insulin as needed. Will continue home metformin once patient's home med rec has been reconciled by nursing staff. hypoglycemia protocol as needed. (4) Obstructive sleep apnea: Code(s): G47.33 - Obstructive sleep apnea (adult) (pediatric) Status: Acute Assessment and Plan: The patient would likely benefit from repeat polysomnogram and or intermittent BiPAP use for respiratory support during hospitalization. However patient refuses and states that she is intolerant to CPAP/BiPAP. Subjective Date/time seen: 08/02/22 12:46 Interval history: Patient is doing much better today. White count has improved. Still requiring O2. In the process of weaning down oxygen. If cannot get off oxygen will need home O2 evaluation. Should be able to discharge tomorrow. Still has cough and sputum production. Lung sounds improving. Review of Systems Review of Systems: All systems reviewed & are unremarkable except as noted in HPI and below Exam Narrative: GENERAL: Comfortable, no acute distress HENMT: moist mucous membranes EYES: EOM intact b/l NECK: no lymphadenopathy RESPIRATORY: crackles on the left. much improvement from yesterday CARDIO: RRR GI: soft, nontender, bowel sounds present SKIN: no rashes EXTREMITIES: no edema, redness or tenderness Objective Data Vital Signs Vital Signs: Vital Signs - 24 hr 08/01/22 13:30 08/01/22 13:44 08/01/22 13:20 Temperature 97.6 F Pulse Rate 85 77 73 Respiratory Rate 20 20 15 Blood Pressure 125/72 Pulse Oximetry 100 O
[2022-08-02 16:19] LABS: Glucose Point of Care 92 mg/dl (65-105)
[2022-08-02] MEDS: MELATONIN 5 MG TABLET PO (20:43)
[2022-08-02 21:28] LABS: Glucose Point of Care 115 mg/dl (65-105)
[2022-08-03] MEDS: CEFEPIME 2 GM/NS 50 ML 2 GM/50 ML BAG IVPB ×2 (01:41→08:15)
[2022-08-03 02:22] LABS: Legionella pneumophila Ag Ur Not Detected (Not Detected)
--- NOTE | 2022-08-03 05:22 | PCRCNOTE ---
Window of time for administration has passed. See next scheduled administration.
[2022-08-03 05:46] VITALS: BP 121/61; PULSE 55; RESP 18; TEMP 36.3; O2SAT 92
[2022-08-03 07:33] LABS: Glucose Point of Care 94 mg/dl (65-105)
[2022-08-03 07:56] LABS: Basophils Percent Auto 0.3 % (0.2-1.2); Eosinophils Absolute Auto 0.7 K/mm3 (0-0.3); Eosinophils Percent Auto 7.2 % (0-4.4); Hematocrit 40.3 % (37.0-47.0); Hemoglobin 12.7 g/dL (12.0-15.0); Immature Granulocyte Absolute 0.09 K/mm3 (0.00-0.031); Immature Granulocyte Percent A 0.9 % (0-0.5); Lymphocytes Absolute Auto 2.14 K/mm3 (0.9-3.2); Lymphocytes Percent Auto 21.6 % (18.3-44.2); Mean Corpuscular HGB Conc 31.5 g/dl (32-36); Mean Corpuscular Hemoglobin 26.6 pg (26-34); Mean Corpuscular Volume 84.3 fl (80-100); Mean Platelet Volume 9.9 fl (7.4-10.4); Monocytes Absolute Auto 0.6 K/mm3 (0.1-0.6); Monocytes Percent Auto 6.1 % (2.6-8.5); Neutrophils Absolute Auto 6.3 K/mm3 (1.3-6.7); Neutrophils Percent Auto 63.9 % (45.5-73.1); Platelet Count Result 394 k/mm3 (150-375); Red Blood Count 4.78 M/mm3 (4.2-5.4); Red Cell Distribution Width 15.3 % (11.5-14.5); White Blood Count 9.9 K/mm3 (4.5-10.0)
[2022-08-03 08:06] LABS: Alanine Aminotransferase 32 U/L (6-35); Albumin Level 4.1 g/dL (3.5-5.1); Alkaline Phosphatase 102 U/L (38-126); Anion Gap 5 mmol/L (8-16); Aspartate Amino Transferase 31 U/L (14-36); Bilirubin,Total 0.6 mg/dL (0.2-1.3); Blood Urea Nitrogen 12 mg/dL (7-17); Carbon Dioxide 31 mmol/L (22-30); Chloride 103 mmol/L (98-107); Estimated CRCL calculation 95 ml/min; Estimated Glomerular Filt Rate > 60; Glucose 99 mg/dL (65-110); Sodium 139 mmol/L (137-145)
[2022-08-03] MEDS: hydrALAZINE HCL 25 MG TABLET PO (08:14)
[2022-08-03] MEDS: amLODIPine BESYLATE 5 MG TABLET 10 MG PO (08:14)
[2022-08-03] MEDS: FAMOTIDINE 20 MG TABLET PO (08:14)
[2022-08-03] MEDS: MAGNESIUM OXIDE 200 MG TABLET PO (08:14)
[2022-08-03] MEDS: guaiFENesin 600 MG/DEXTROMETHORPHAN 30 MG SR TAB 12 HR 1 TAB PO (08:14)
[2022-08-03] MEDS: LOSARTAN POTASSIUM 100 MG TABLET PO (08:15)
[2022-08-03] MEDS: ENOXAPARIN 40 MG/0.4 ML SYRINGE SUB-Q (08:16)
[2022-08-03] MEDS: metFORMIN HCL 500 MG TABLET PO (08:50)
[2022-08-03] MEDS: IPRATROPIUM BR 0.02% INH SOLN 0.5 MG/2.5 ML VIAL INHALATION (09:41)
[2022-08-03] MEDS: LEVALBUTEROL NEB 1.25 MG/3 ML 0.63 MG INHALATION (09:41)
[2022-08-03 09:42] VITALS: PULSE 73; RESP 20
[2022-08-03 09:45] VITALS: PULSE 72; RESP 20; O2SAT 96
[2022-08-03 09:50] VITALS: PULSE 75; RESP 20
--- NOTE | 2022-08-03 10:19 | PM.IMPN ---
Subjective Date/time seen: 08/03/22 10:19 Objective Data Vital Signs Vital Signs: Vital Signs - 24 hr 08/02/22 13:40 08/02/22 13:40 08/02/22 13:50 Temperature Pulse Rate 72 75 Respiratory Rate 20 20 Blood Pressure Pulse Oximetry 94 Oxygen Delivery Room Air 08/02/22 14:00 08/02/22 20:30 08/02/22 21:40 Temperature 97.8 F 97.3 F L Pulse Rate 76 78 74 Respiratory Rate 18 18 20 Blood Pressure 108/62 120/77 Pulse Oximetry 95 90 Oxygen Delivery 08/02/22 21:59 08/02/22 21:50 08/03/22 05:46 Temperature 97.4 F L Pulse Rate 74 72 55 L Respiratory Rate 20 18 Blood Pressure 121/61 Pulse Oximetry 95 92 Oxygen Delivery Room Air 08/03/22 09:42 08/03/22 09:45 08/03/22 09:50 Temperature Pulse Rate 73 72 75 Respiratory Rate 20 20 20 Blood Pressure Pulse Oximetry 96 Oxygen Delivery Room Air Intake/Output Intake/Output: Intake & Output 07/31/22 08/01/22 08/02/22 08/03/22 23:59 23:59 23:59 23:59 Intake Total 4570 1770 3500 340 Output Total 1600 2500 3700 1800 Balance 2934 -738 -200 -8990 Meds/Results Medications: Active Medications Generic Name Dose Route Start Last Admin Trade Name Freq PRN Reason Stop Dose Admin Acetaminophen 650 mg 07/29/22 18:17 08/01/22 17:11 Acetaminophen 325 Mg Tablet PO 650 mg Q6H PRN Administration Mild Pain (1-3) or Fever Amlodipine Besylate 10 mg 07/29/22 09:00 08/03/22 08:14 Amlodipine Besylate 5 Mg Tablet PO 10 mg DAILY SAJAN Administration Dextrose 12.5 gm 07/29/22 00:56 Dextrose 50% 25 Gm/50 Ml Syringe IV PUSH PRN PRN Hypoglycemia Protocol Enoxaparin Sodium 40 mg 07/29/22 09:00 08/03/22 08:16 Enoxaparin 40 Mg/0.4 Ml Syringe SUB-Q 40 mg DAILY SAJAN Administration Famotidine 20 mg 07/29/22 09:00 08/03/22 08:14 Famotidine 20 Mg Tablet PO 20 mg DAILY SAJAN Administration Glucagon 1 mg 07/29/22 00:56 Glucagon For Inj 1 Mg Vial IM PRN PRN Hypoglycemia Protocol Glucose 15 gm 07/29/22 00:56 Glucose Oral Gel 15 Gm Of Glucse In 37.5 Gm Tube PO PRN PRN Hypoglycemia Protocol Guaifenesin/Dextromethorphan 1 tab 07/29/22 00:25 08/03/22 08:14 Guaifenesin 600 Mg/Dextromethorphan 30 Mg Sr Tab 12 Hr PO 1 tab Q12HR SAJAN Administration Hydralazine HCl 25 mg 07/29/22 09:00 08/03/22 08:14 Hydralazine Hcl 25 Mg Tablet PO 25 mg BID SAJAN Administration Dextrose 1,000 mls @ 100 mls/hr 07/29/22 00:56 Dextrose 5% 1,000 Ml IVPB PRN PRN Hypoglycemia Protocol Cefepime HCl 2 gm in 50 mls @ 100 mls/hr 08/01/22 09:00 08/03/22 08:45 Maxipime 2 Gm/Ns 50 Ml IVPB 08/07/22 23:59 Infused Q8H SAJAN Infusion Insulin Aspart 2 - 5 units 07/29/22 08:00 08/03/22 07:40 Insulin Aspart (*Bkc) 100 Units/Ml SUB-Q Not Given TIDWM SAJAN Protocol Ipratropium [place] 0.5 mg 07/29/22 02:00 08/03/22 09:41 Ipratropium Br 0.02% Inh Soln 0.5 Mg/2.5 Ml Vial INHALATION 0.5 mg Q6HRT SAJAN Administration Levalbuterol HCl 0.63 mg 07/29/22 02:00 08/03/22 09:41 Levalbuterol Neb 1.25 Mg/3 Ml INHALATION 0.63 mg Q6HRT SAJAN Administration Losartan Potassium 100 mg 07/29/22 09:00 08/03/22 08:15 Losartan Potassium 100 Mg Tablet PO 100 mg DAILY SAJAN Administration Magnesium Oxide 200 mg 07/29/22 09:00 08/03/22 08:14 Magnesium Oxide 200 Mg Tablet PO 200 mg DAILY SAJAN Administration Melatonin 5 mg 07/29/22 00:20 08/02/22 20:43 Melatonin 5 Mg Tablet PO 5 mg HS SAJAN Administration Metformin HCl 500 mg 07/29/22 09:00 08/03/22 08:50 Metformin Hcl 500 Mg Tablet PO 500 mg BID SAJAN Administration Radiology Results: ITS Impressions Chest CTA 07/28/22 20:02 IMPRESSION: 1. No pulmonary embolus identified. 2. Diffuse lung disease, right greater than left, consistent with pneumonia/or pulmonary edema. Chest X-Ray 08/02/22 13:18 IMPRESSION: 1. Stable air
--- NOTE | 2022-08-03 10:19 | PM.DS ---
DS: Admitting Diagnosis Discharge Date 08/03/22 Admitting Diagnosis Pneumonia DS: Discharge Diagnosis Discharge Diagnosis (1) Acute respiratory failure with hypoxia: Code(s): J96.01 - Acute respiratory failure with hypoxia Status: Acute Assessment and Plan: Acute respiratory failure with hypoxia. Likely due to underlying pneumonia. Patient recently diagnosed with pneumonia in early June of 2022 and was treated the hospital. Oxygen has been weaned and patient now on room air maintaining greater than 90%. Patient does not have any known respiratory disease although it is recommended she follow-up for PFT. (2) Pneumonia: Code(s): J18.9 - Pneumonia, unspecified organism Status: Acute Assessment and Plan: Patient presents to the ED on 07/28/2022 with shortness of breath. Patient recently diagnosed with pneumonia in June of 2022 in which she was treated with ceftriaxone and azithromycin. Chest x-ray showing diffuse lung disease consistent with atelectasis versus pneumonia versus pulmonary edemaAs well as cardiomegaly. CTA chest negative for PE, diffuse lung disease right greater than left, consistent with pneumonia and/or pulmonary edema. Patient started on vancomycin and Levaquin IV. Sputum cultures pending Blood culture growing micrococcus luteus in 1 bottle which is likely a contamination. Other 3 bottles negative. Will add Mucinex DM 12 hour and pulmonary toilet. guaifenesin for cough p.r.n. 07/31 Repeat chest x-ray revealing airspace opacities in the lower lung zones with interval improvement, consistent with pneumonia. Improved from previous x-ray. 08/01 MRSA swab negative and vancomycin discontinued. Cefepime started for MSSA and pseudomonal coverage. Discuss this with the ID pharmacist and will treat through 08/07/2022. 08/02 Levaquin finished today. 08/03 Patient doing extraordinarily better and can be discharged home with antibiotics. (3) Type 2 diabetes mellitus: Qualifiers: Diabetes mellitus complication status: without complication Diabetes mellitus equipment operator intermodal yard insulin use: without senior living use Qualified Code(s): E11.9 - Type 2 diabetes mellitus without complications Code(s): E11.9 - Type 2 diabetes mellitus without complications Status: Acute Assessment and Plan: Will monitor Accu-Cheks closely a.c. hs and will add sliding scale insulin as needed. Will continue home metformin once patient's home med rec has been reconciled by nursing staff. hypoglycemia protocol as needed. (4) Obstructive sleep apnea: Code(s): G47.33 - Obstructive sleep apnea (adult) (pediatric) Status: Acute Assessment and Plan: The patient would likely benefit from repeat polysomnogram and or intermittent BiPAP use for respiratory support during hospitalization. However patient refuses and states that she is intolerant to CPAP/BiPAP. DS: Summary Hospital Course Reason for hospitalization: Pneumonia Hospital Course: This is a 71-year-old female with past medical history significant for GERD, hypertension, diabetes presented to the ER on 07/28/2022 with worsening shortness of breath. Patient recently hospitalized about a month ago for community-acquired pneumonia and acute hypoxic respiratory failure and was treated with Rocephin and azithromycin. When she was discharged she had improved. Patient began having rigors and cold sweats approximately a week ago that progressed to a cough and productive yellow sputum. Patient returned to the ER on 07/28/2022 where her oxygen saturations were 87% on room air. Patient required 2 L to maintain her saturations. Patient has no history of COPD and has no history of smoking. Chest x-ray with diffuse lung disease consistent with atelectasis versus pneumonia versus pulmonary edema. CTA performed was negative for PE but did demonstrate diffuse lung disease in the right greater
[2022-08-03 11:19] LABS: Glucose Point of Care 109 mg/dl (65-105)
[2022-08-03 12:40] VITALS: BMI 46.2
== END 2022-08-03 13:15 | disposition home or self-care (01) | DRG 194 ==
LOC: ANHED 20:37 → ANH3MEDSUR 07-29 00:26
PROVIDERS: Hospitalist; Physician Assistant; Admitting Provider Internal Medicine; Emergency Provider Emergency Medicine; PCP Internal Medicine; Visit Provider Internal Medicine Critical Care Medicine
DX: J18.9 Pneumonia, unspecified organism (principal); Z68.42 Body mass index [BMI] 45.0-49.9, adult; E11.9 Type 2 diabetes mellitus without complications; G47.33 Obstructive sleep apnea (adult) (pediatric); K21.9 Gastro-esophageal reflux disease without esophagitis; E66.01 Morbid (severe) obesity due to excess calories; G47.00 Insomnia, unspecified; Z88.5 Allergy status to narcotic agent; Z20.822 Contact with and (suspected) exposure to COVID-19
CPT/HCPCS: 36415; 71045; 71275; 80048; 80053; 80202; 82565; 82948; 83605; 83880; 84484; 85025; 85027; 85610; 85730; 86738; 87040; 87070; 87077; 87081; 87205; 87449; 87637; 87899; 92610; 93005; 94640; 94669; 96365; 96366; 96372; 96375; 96376; 99285; A9270; G0378; J0692; J1650; J1956; J2930; J3370; Q9967

== ENCOUNTER 2022-08-12 07:07 | Outpatient (CLI) | payer OTHER, SELFPAY ==
[2022-08-12 07:42] LABS: Alanine Aminotransferase 20 U/L (6-35); Albumin Level 4.2 g/dL (3.5-5.1); Alkaline Phosphatase 100 U/L (38-126); Anion Gap 9 mmol/L (8-16); Aspartate Amino Transferase 20 U/L (14-36); Bilirubin,Total 0.7 mg/dL (0.2-1.3); Blood Urea Nitrogen 18 mg/dL (7-17); Calcium 9.1 mg/dL (8.4-10.2); Carbon Dioxide 29 mmol/L (22-30); Chloride 99 mmol/L (98-107); Cholesterol 153 mg/dL (0-200); Estimated Glomerular Filt Rate > 60; Glucose 115 mg/dL (65-110); HDL Direct 44 mg/dL; Potassium 4.4 mmol/L (3.4-5.0); Sodium 137 mmol/L (137-145); Triglycerides 152 mg/dL (<150)
[2022-08-12 07:53] LABS: LDL Cholesterol Direct 74 mg/dL
[2022-08-12 09:02] LABS: Hemoglobin A1C 6.3 % (<5.7)
== END 2022-08-12 07:08 | disposition home or self-care (01) ==
PROVIDERS: PCP Internal Medicine; Visit Provider Nurse Practitioner
DX: E78.5 Hyperlipidemia, unspecified (principal); E11.9 Type 2 diabetes mellitus without complications
CPT/HCPCS: 36415; 80053; 80061; 83036

== ENCOUNTER 2022-10-11 07:24 | Outpatient (CLI) | payer OTHER, SELFPAY ==
--- NOTE | 2022-10-11 07:37 | ECHO_ITS ---
Patient Info Name: Clemencia Figueredo Age: 71 years : 1950 Gender: Female Ht: 65 in Wt: 288 lbs BSA: 2.52 m2 HR: 62 bpm BP: 136 / 77 mmHg Technical Quality: Fair Exam Date: 10/11/2022 7:48 AM Exam Location: [facility] Patient Status: Outpatient Admit Date: 10/11/2022 Staff Ordering Physician: Dave Carrillo MD Rn Plastics: Catrina Valdez RDCS Attending Provider: Dave Carrillo MD Referring Physician: Lorena RÍOS; Exam Type: CA echo dop color flow w con Study Info Indications R06.02 - Shortness of breath Complete two-dimensional, color flow and Doppler transthoracic echocardiogram is performed. Contrast/Agitated Saline Contrast/Ag. Saline: Definity Amount: 3.00 ml Administered By: Catrina Valdez RDCS New IV Access: Antecubital Space and Left Site Condition: No extravasation, Site dressing applied and IV removed Summary 1. Complete two-dimensional, color flow and Doppler transthoracic echocardiogram is performed. 2. Definity contrast administered improved wall motion interpretation. 3. Left ventricular chamber dimension is normal. 4. Left ventricular systolic function is hyperdynamic, estimated at >70%. 5. The left ventricular diastolic function is grade I diastolic dysfunction. 6. E/e' 9 is minimally elevated. 7. Left atrial chamber dimension is mildly enlarged. 8. There is mild aortic valve sclerosis. 9. Mild pulmonary hypertension, estimated pulmonary arterial systolic pressure is 42 mmHg. Left Ventricle E/e' 9 is minimally elevated. Definity contrast administered improved wall motion interpretation. Left ventricular chamber dimension is normal. Left ventricular systolic function is hyperdynamic, estimated at >70%. The left ventricular diastolic function is grade I diastolic dysfunction. Right Ventricle Right ventricular chamber dimension is normal. Right ventricular systolic function is normal. Left Atria Left atrial chamber dimension is mildly enlarged. Right Atria Right atrial chamber dimension is normal. Aortic Valve The aortic valve is trileaflet. There is mild aortic valve sclerosis. There is no aortic valve stenosis. There is no aortic valve regurgitation. Pulmonic Valve There is no pulmonic regurgitation. Mitral Valve There is no mitral valve stenosis. There is no mitral valve regurgitation. Tricuspid Valve There is no tricuspid valve regurgitation. Mild pulmonary hypertension, estimated pulmonary arterial systolic pressure is 42 mmHg. Pericardium/Pleural There is no pericardial effusion. Inferior Vena Cava Normal inferior vena cava with >50% collapse upon inspiration consistent with normal right atrial pressure, 5 mmHg. Aorta The aortic root size at the sinus of Valsalva is normal. Left Ventricular Outflow Tract Name Value Normal LVOT 2D LVOT Diameter 1.88 cm LVOT Doppler LVOT Peak Gradient 6 mmHg LVOT Mean Gradient 3 mmHg LVOT VTI 27.55 cm LVOT VTI/AV VTI Ratio 0.89 LVOT Stroke Volume 76.06 ml LVOT CO 4.58 l/min
[2022-10-11] MEDS: PERFLUTREN LIPID MICROSPHERES 1.5 ML VIAL DILUTED TO 10 ML TOTAL VOLUME IV PUSH (08:25)
--- NOTE | 2022-10-11 14:02 | WPDPFTINT ---
PFT Procedure Performed PFT Procedure Performed Spirometry with Pre/Post Bronchodilator Plethysmography (Lung Vol) Diffusing Cap (DLCO) Flow Vol Loop PFT Interpretation Lung volumes were measured with the body plethysmography method. The diminished ERV is related to obesity. The remaining lung volumes are unremarkable. Spirometry showed normal expiratory flow rates and a normal FEV1 to FVC ratio of 76%. Following administration of a bronchodilator there was no significant increase in expiratory flow rates. Lung diffusion capacity is within the normal range at 76% predicted. The flow-volume loop is unremarkable. Impression: Spirometry, lung volumes, and lung diffusion capacity all within the normal range.
--- NOTE | 2022-10-11 14:04 | WPDSIXMINUTE ---
Six Minute Walk Procedure Procedure Performed Pulmonary Stress Test (6 min walk) Six Minute Walk Six Minute Walk: This 6 minute walk test was carried out with the patient breathing ambient air. The baseline pre-walk oxyhemoglobin saturation was 93%. The patient walked 274 m with no stops during testing. During the walk the oxyhemoglobin saturation remained in the range of 91%-92%. Impression: No evidence of oxyhemoglobin desaturation on this testing.
== END 2022-10-11 07:25 | disposition home or self-care (01) ==
PROVIDERS: PCP Family Medicine; Visit Provider Internal Medicine Pulmonary Disease
DX: R06.02 Shortness of breath (principal); I27.20 Pulmonary hypertension, unspecified; I35.8 Other nonrheumatic aortic valve disorders
CPT/HCPCS: 94060; 94618; 94726; 94729; C8929; Q9957

== ENCOUNTER 2023-02-03 13:02 | Inpatient (IN) | payer OTHER, SELFPAY ==
[2023-02-03] VITALS (44 sets, daily range): BP systolic 115–167; BP diastolic 65–125; PULSE 62–91; RESP 14–34; TEMP 36.4–37; O2SAT 88–98
--- NOTE | ~2023-02-03 | CT_ITS ---
EXAMINATION: CTA chest PE protocol DATE: 02/03/2023 16:03 INDICATION: Shortness of breath. TECHNIQUE: Computed tomography angiography (CTA) of the chest was performed with 100 mL Omnipaque-350 intravenous contrast timed to evaluate the pulmonary arteries. Coronal maximum intensity projection 3D-reconstructions were created by the technologist. Automated exposure control and iterative reconst ruction technique were employed. The dose-length product was 941.94 mGy-cm. COMPARISON: Chest CT 07/28/2022 FINDINGS: The lungs demonstrate mild atelectasis. There is mild scarring in right lower lobe. No pleu ral effusion. The heart size is normal. No pericardial effusion. There are coronary artery calcificat ions. There is no pulmonary embolus. There are surgical changes of the stomach. There is severe thora cic spondylosis. There are bridging endplate osteophytes at multiple levels in the spine, consistent with diffuse idiopathic skeletal hyperostosis (DISH). IMPRESSION: 1. No pulmonary embolus. Sensitivity is moderately decreased by motion artifact. Reviewed, dictated and finalized at location E. IMPRESSION: 1. No pulmonary embolus. Sensitivity is moderately decreased by motion artifact .
--- NOTE | ~2023-02-03 | XR_ITS ---
EXAMINATION: XR chest 2V DATE: 02/03/2023 13:39 INDICATION: Cough and shortness of breath TECHNIQUE: PA and lateral views of the chest are obtained. COMPARISON: 08/02/2022 FINDINGS: There are minimal airspace opacities of the lung bases. No pleural effusion or pneumothorax . The cardiomediastinal silhouette is normal. There are bridging osteophytes at multiple levels in th e spine, consistent with diffuse idiopathic skeletal hyperostosis (DISH). There are surgical clips in the left upper quadrant. IMPRESSION: 1. Bibasilar airspace opacities, consistent with atelectasis versus pneumonia. Reviewed, dictated and finalized at location A.
--- NOTE | 2023-02-03 13:08 | ECG_ITS ---
Measurements Intervals [place] Rate: 76 P: 42 [place]: 202 QRS: -43 QRSD: 95 T: 12 QT: 355 QTc: 401 Interpretive Statements SINUS RHYTHM MARKED LEFT AXIS DEVIATION [QRS AXIS < -30] MODERATE VOLTAGE CRITERIA FOR LVH, CONSIDER NORMAL VARIANT [MEETS CRITERIA IN ONE OF: R(aVL), S(V1), R(V5), R(V5/V6)+S(V1)] POSSIBLE ANTERIOR MYOCARDIAL INFARCTION , OF INDETERMINATE AGE [30 ms Q WAVE IN V3/V4, OR R < 0.2 mV IN V4] COMPARED TO ECG 07/28/2022 17:50:07 NO SIGNIFICANT CHANGES Electronically Signed On 02-03-2023 14:33:46 CDT by Williams Romero M.D.
[2023-02-03 13:21] LABS: Basophils Absolute Auto 0.1 K/mm3 (0.0-0.1); Basophils Percent Auto 0.3 % (0.2-1.2); Eosinophils Absolute Auto 0.6 K/mm3 (0-0.3); Eosinophils Percent Auto 3.9 % (0-4.4); Hematocrit 40.5 % (37.0-47.0); Hemoglobin 12.7 g/dL (12.0-15.0); Immature Granulocyte Absolute 0.07 K/mm3 (0.00-0.031); Immature Granulocyte Percent A 0.4 % (0-0.5); Lymphocytes Percent Auto 20.4 % (18.3-44.2); Mean Corpuscular HGB Conc 31.4 g/dl (32-36); Mean Corpuscular Hemoglobin 26.5 pg (26-34); Mean Corpuscular Volume 84.6 fl (80-100); Mean Platelet Volume 9.6 fl (7.4-10.4); Monocytes Absolute Auto 0.9 K/mm3 (0.1-0.6); Monocytes Percent Auto 5.5 % (2.6-8.5); Neutrophils Absolute Auto 10.9 K/mm3 (1.3-6.7); Neutrophils Percent Auto 69.5 % (45.5-73.1); Platelet Count Result 398 k/mm3 (150-375); Red Blood Count 4.79 M/mm3 (4.2-5.4); Red Cell Distribution Width 16.8 % (11.5-14.5); White Blood Count 15.7 K/mm3 (4.5-10.0)
[2023-02-03 13:32] LABS: Alanine Aminotransferase 19 U/L (6-35); Albumin Level 4.3 g/dL (3.5-5.1); Alkaline Phosphatase 99 U/L (38-126); Anion Gap 7 mmol/L (8-16); Aspartate Amino Transferase 25 U/L (14-36); Bilirubin,Total 0.5 mg/dL (0.2-1.3); Blood Urea Nitrogen 16 mg/dL (7-17); Calcium 9.3 mg/dL (8.4-10.2); Carbon Dioxide 26 mmol/L (22-30); Chloride 105 mmol/L (98-107); Estimated CRCL calculation 85 ml/min; Estimated Glomerular Filt Rate > 60; Glucose 97 mg/dL (65-110); Potassium 4.1 mmol/L (3.4-5.0); Sodium 138 mmol/L (137-145)
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
[2023-02-03 15:11] LABS: NT Pro B Type Natriuretic Pept 67 pg/mL (19.9-100); Troponin I < 0.012 ng/mL (0.000-0.034)
[2023-02-03 15:21] LABS: D Dimer 0.93 ug/mL (<0.48)
[2023-02-03 15:30] LABS: Influenza A QL RT-PCR Negative (Negative); Influenza B QL RT-PCR Negative (Negative); SARS-CoV-2 RNA PCR Negative (Negative)
[2023-02-03] MEDS: IPRATROPIUM BR 0.02% INH SOLN 0.5 MG/2.5 ML VIAL 1 MG INHALATION (16:59)
[2023-02-03] MEDS: ALBUTEROL SULFATE NEB 2.5 MG/3 ML INH 5 MG INHALATION (16:59)
--- NOTE | 2023-02-03 17:36 | PC.NURSE ---
Food tray ordered
[2023-02-03] MEDS: predniSONE 20 MG TABLET 60 MG PO (18:02)
--- NOTE | 2023-02-03 18:35 | ADMGEN ---
This patient, Clemencia Figueredo, was admitted to Medical Room 343-01. Patient/family oriented to hospital policies and general routines including ID bracelet, bed and alarms, visiting hours, pain management, procedures, bathroom and other care routines, personal items, smoking policy, room service/diet, and visiting hours. Information on how to activate the Rapid Response Team has been discussed. Patient/Family are encouraged to report perceived risks to care and to ask questions if they do not understand what they are told or what they should do.
[2023-02-03] MEDS: AZITHROMYCIN 500 MG/NS 250 ML 500 MG/250 ML BAG 250 MG IVPB (19:17)
[2023-02-03] MEDS: IPRATROPIUM BR 0.02% INH SOLN 0.5 MG/2.5 ML VIAL INHALATION (21:13)
[2023-02-03] MEDS: ALBUTEROL SULFATE NEB 2.5 MG/3 ML INH INHALATION (21:13)
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
[2023-02-04] VITALS (14 sets, daily range): BP systolic 114–121; BP diastolic 58–68; PULSE 73–95; RESP 16–20; TEMP 36.2–36.5; O2SAT 91–98
[2023-02-04] MEDS: ALBUTEROL SULFATE NEB 2.5 MG/3 ML INH INHALATION ×4 (02:30→19:18)
[2023-02-04] MEDS: IPRATROPIUM BR 0.02% INH SOLN 0.5 MG/2.5 ML VIAL INHALATION ×4 (02:30→19:18)
[2023-02-04 03:10] LABS: Alveolar/Arterial O2 Gradient 89.6 mmHg; Carboxyhemoglobin 0.1 % THb (0-2.0); Fractional Inspired Oxygen 28 %; HCO3 ABG 25.8 mEq/l (22.0-26.0); Methemoglobin ABG 0.4 %THb (0-1.5); Oxygen Content ABG 16.8 %vol (16.0-22.0); Oxygen Saturation ABG 91.3 % (95.0-100.0); Oxyhemoglobin 90.3 % THb (90.0-100.0); PCO2 ABG 42.1 mmHg (35.0-45.0); PO2 ABG 60.4 mmHg (80.0-100.0); PO2 FiO2 Ratio Arterial Blood 2.16 %; Reduced Hemoglobin 9.2 %THb (0-5.0); Total Hemoglobin 13.2 g/dL (12.0-18.0); pH ABG 7.406 (7.350-7.450)
[2023-02-04 03:11] LABS: Device NASAL CANNULA; Modified Allen's Test Pass; Site Drawn RIGHT RADIAL
[2023-02-04 06:40] LABS: Basophils Percent Auto 0.2 % (0.2-1.2); Eosinophils Percent Auto 0.1 % (0-4.4); Hematocrit 39.4 % (37.0-47.0); Hemoglobin 12.2 g/dL (12.0-15.0); Immature Granulocyte Absolute 0.09 K/mm3 (0.00-0.031); Immature Granulocyte Percent A 0.7 % (0-0.5); Lymphocytes Absolute Auto 1.59 K/mm3 (0.9-3.2); Lymphocytes Percent Auto 12.1 % (18.3-44.2); Mean Corpuscular Hemoglobin 26.5 pg (26-34); Mean Corpuscular Volume 85.5 fl (80-100); Mean Platelet Volume 9.7 fl (7.4-10.4); Monocytes Absolute Auto 0.5 K/mm3 (0.1-0.6); Monocytes Percent Auto 4.1 % (2.6-8.5); Neutrophils Absolute Auto 10.9 K/mm3 (1.3-6.7); Neutrophils Percent Auto 82.8 % (45.5-73.1); Platelet Count Result 401 k/mm3 (150-375); Red Blood Count 4.61 M/mm3 (4.2-5.4); Red Cell Distribution Width 16.7 % (11.5-14.5); White Blood Count 13.2 K/mm3 (4.5-10.0)
[2023-02-04 06:48] LABS: Hemoglobin A1C 6.1 % (<5.7)
[2023-02-04 06:53] LABS: Alanine Aminotransferase 21 U/L (6-35); Albumin Level 4.3 g/dL (3.5-5.1); Alkaline Phosphatase 85 U/L (38-126); Anion Gap 7 mmol/L (8-16); Aspartate Amino Transferase 23 U/L (14-36); Bilirubin,Total 0.5 mg/dL (0.2-1.3); Blood Urea Nitrogen 14 mg/dL (7-17); Calcium 9.3 mg/dL (8.4-10.2); Carbon Dioxide 29 mmol/L (22-30); Chloride 102 mmol/L (98-107); Estimated CRCL calculation 83 ml/min; Estimated Glomerular Filt Rate > 60; Glucose 142 mg/dL (65-110); Potassium 4.7 mmol/L (3.4-5.0); Sodium 138 mmol/L (137-145)
[2023-02-04] MEDS: LOSARTAN POTASSIUM 100 MG TABLET PO (08:24)
[2023-02-04] MEDS: FAMOTIDINE 20 MG TABLET PO (08:24)
[2023-02-04] MEDS: hydrALAZINE HCL 25 MG TABLET PO ×2 (08:25→16:43)
[2023-02-04] MEDS: guaiFENesin 12 HR 600 MG TABCR 1200 MG PO ×2 (08:25→22:03)
[2023-02-04] MEDS: ENOXAPARIN 40 MG/0.4 ML SYRINGE SUB-Q (08:25)
[2023-02-04] MEDS: predniSONE 20 MG TABLET 60 MG PO (08:25)
[2023-02-04] MEDS: MAGNESIUM OXIDE 400 MG TABLET PO (08:25)
[2023-02-04] MEDS: amLODIPine BESYLATE 5 MG TABLET 10 MG PO (08:25)
[2023-02-04 08:40] LABS: Glucose Point of Care 117 mg/dl (65-105)
[2023-02-04] MEDS: MULTIVITAMINS THERAPEUTIC TAB (*BKC) 1 TABLET PO (09:53)
--- NOTE | 2023-02-04 12:18 | PM.IMPN ---
Progress Note: A&P Assessment and Plan (1) Hypoxia: Code(s): R09.02 - Hypoxemia Status: Acute (2) Bronchitis: Code(s): J40 - Bronchitis, not specified as acute or chronic Status: Acute (3) Obstructive sleep apnea: Code(s): G47.33 - Obstructive sleep apnea (adult) (pediatric) Status: Acute (4) Hypertension: Code(s): I10 - Essential (primary) hypertension Status: Acute Plan The patient presented to the emergency department for evaluation of ongoing cough and shortness of breath with wheezing despite recent steroids and antibiotics as per HPI. Labs, imaging, EKG, and all reports were personally reviewed. She is afebrile with normal white blood cell count. Chest CTA was negative for PE and pneumonia. She has a viral bronchitis; a recent and extensive workup per pulmonology was relatively unrevealing. She is currently on 2 L nasal cannula to maintain her SpO2 in the mid 90s. Oxygen will be weaned as tolerated. She will likely need a home sleep study prior to discharge. Previously hospitalized with hypercapnic respiratory failure; she is noncompliant with her CPAP at home and does not seem interested in trying that. ABG has been ordered. Continue scheduled updrafts and p.o. prednisone. Mucinex and Cornet ordered to help mobilize secretions. No strong indication for antibiotics as she recently finished azithromycin. Monitor glucose closely while on steroids. Blood pressures were reviewed and they are stable. Her home medications will be reviewed and resumed as appropriate. Subjective Date/time seen: 02/04/23 12:18 Interval history: no complaints Exam Const: Other: Well-developed, nontoxic-appearing female sitting up in bed in no acute distress. Weight: 134.8 kg. BMI: 49.5. HENMT: Other: Normocephalic, atraumatic. Nares pain bilaterally. Moist mucous membranes. Eyes: Other: Pupils are reactive. Extraocular motions intact. Sclerae anicteric. Neck: Other: Supple. Exam limited due to neck circumference. No obvious JVD or lymphadenopathy. Resp: Other: Respirations are nonlabored and she is speaking in full sentences. Lung sounds are a bit diminished with diffuse expiratory wheezing. Occasional rhonchi which improved with cough. Cardio: Other: Regular rate rhythm with normal S1-S2. GI: Other: Abdomen is soft, obese, nontender, nondistended with positive bowel sounds. Skin: Other: Warm and dry. No rash or lesion on limited exam. Neuro: Other: Alert. Cranial nerves 2-12 are grossly intact. No gross focal deficits to casual conversation. Extrem: Other: No cyanosis or clubbing. Trace yeny ankle edema bilaterally. No palpable knots or cords. Peripheral pulses intact. Psych: Other: Appropriate mood and affect. Objective Data Vital Signs Vital Signs: Vital Signs - 24 hr 02/03/23 13:15 02/03/23 13:22 02/03/23 15:15 Temperature 98.6 F Pulse Rate 78 69 Respiratory Rate 18 22 H Blood Pressure 115/70 153/89 H Pulse Oximetry 91 91 92 Oxygen Delivery Room Air Room Air Oxygen Flow Rate Fraction of Inspired Oxygen 02/03/23 15:19 02/03/23 15:20 02/03/23 15:22 Temperature Pulse Rate 69 Respiratory Rate 16 Blood Pressure 153/89 H Pulse Oximetry 88 L 92 95 Oxygen Delivery Room Air Nasal Cannula Oxygen Flow Rate 2 Fraction of Inspired Oxygen 02/03/23 16:59 02/03/23 17:34 02/03/23 13:08 Temperature Pulse Rate 67 87 91 Respiratory Rate 20 20 34 H Blood Pressure Pulse Oximetry Oxygen Delivery Oxygen Flow Rate Fraction of Inspired Oxygen 02/03/23 13:13 02/03/23 13:15 02/03/23 13:16 Temperature Pulse Rate 77 79 77 Respiratory Rate 17 22 H 17 Blood Pressure 125/80 115/70 Pulse Oximetry 92 90 91 Oxygen Delivery Oxygen Flow Rate Fraction of Inspired Oxygen 02/03/23 13:30 02/03/23 13:31 02/03/23 13:43 Temperature Pulse Rat
[2023-02-04 12:20] LABS: Glucose Point of Care 135 mg/dl (65-105)
[2023-02-04] MEDS: ACETAMINOPHEN 325 MG TABLET 650 MG PO (16:42)
[2023-02-04 17:13] LABS: Glucose Point of Care 224 mg/dl (65-105)
--- NOTE | 2023-02-04 18:10 | PC.NURSE ---
Dinner trays arrived at 1800. Patients BS re-checked at that time at BS was 194. No insulin needed per protocol
[2023-02-04 18:11] LABS: Glucose Point of Care 194 mg/dl (65-105)
[2023-02-04] MEDS: MELATONIN 5 MG TABLET PO (22:03)
[2023-02-05] VITALS (14 sets, daily range): BP systolic 116–142; BP diastolic 58–85; PULSE 68–88; RESP 16–18; TEMP 36.4–36.7; O2SAT 91–95
[2023-02-05] MEDS: IPRATROPIUM BR 0.02% INH SOLN 0.5 MG/2.5 ML VIAL INHALATION ×4 (01:22→20:52)
[2023-02-05] MEDS: ALBUTEROL SULFATE NEB 2.5 MG/3 ML INH INHALATION ×4 (01:22→20:52)
[2023-02-05 03:35] LABS: Glucose Point of Care 127 mg/dl (65-105)
[2023-02-05] MEDS: FAMOTIDINE 20 MG TABLET PO (08:07)
[2023-02-05] MEDS: MAGNESIUM OXIDE 400 MG TABLET PO (08:07)
[2023-02-05] MEDS: amLODIPine BESYLATE 5 MG TABLET 10 MG PO (08:07)
[2023-02-05] MEDS: hydrALAZINE HCL 25 MG TABLET PO ×2 (08:07→18:15)
[2023-02-05] MEDS: ENOXAPARIN 40 MG/0.4 ML SYRINGE SUB-Q (08:07)
[2023-02-05] MEDS: LOSARTAN POTASSIUM 100 MG TABLET PO (08:08)
[2023-02-05] MEDS: MULTIVITAMINS THERAPEUTIC TAB (*BKC) 1 TABLET PO (08:08)
[2023-02-05] MEDS: guaiFENesin 12 HR 600 MG TABCR 1200 MG PO ×2 (08:08→20:35)
[2023-02-05] MEDS: predniSONE 20 MG TABLET 60 MG PO (08:48)
[2023-02-05 08:50] LABS: Glucose Point of Care 101 mg/dl (65-105)
--- NOTE | 2023-02-05 11:05 | PM.IMPN ---
Progress Note: A&P Assessment and Plan (1) Hypoxia: Code(s): R09.02 - Hypoxemia Status: Acute Assessment and Plan: Secondary to bronchitis. Continue current treatment. Titrate down oxygen (2) Bronchitis: Code(s): J40 - Bronchitis, not specified as acute or chronic Status: Acute Assessment and Plan: Continue current treatment. (3) Obstructive sleep apnea: Code(s): G47.33 - Obstructive sleep apnea (adult) (pediatric) Status: Acute Assessment and Plan: Patient refusing any sort of therapy for this. (4) Hypertension: Code(s): I10 - Essential (primary) hypertension Status: Acute Subjective Date/time seen: 02/05/23 11:05 Interval history: No complaints Exam Const: Other: Well-developed, nontoxic-appearing female sitting up in bed in no acute distress. Weight: 134.8 kg. BMI: 49.5. HENMT: Other: Normocephalic, atraumatic. Nares pain bilaterally. Moist mucous membranes. Eyes: Other: Pupils are reactive. Extraocular motions intact. Sclerae anicteric. Neck: Other: Supple. Exam limited due to neck circumference. No obvious JVD or lymphadenopathy. Resp: Other: Respirations are nonlabored and she is speaking in full sentences. Lung sounds are a bit diminished with diffuse expiratory wheezing. Occasional rhonchi which improved with cough. Cardio: Other: Regular rate rhythm with normal S1-S2. GI: Other: Abdomen is soft, obese, nontender, nondistended with positive bowel sounds. Skin: Other: Warm and dry. No rash or lesion on limited exam. Neuro: Other: Alert. Cranial nerves 2-12 are grossly intact. No gross focal deficits to casual conversation. Extrem: Other: No cyanosis or clubbing. Trace yeny ankle edema bilaterally. No palpable knots or cords. Peripheral pulses intact. Psych: Other: Appropriate mood and affect. Objective Data Vital Signs Vital Signs: Vital Signs - 24 hr 02/04/23 14:45 02/04/23 15:00 02/04/23 14:00 Temperature 97.5 F L Pulse Rate 76 82 90 Respiratory Rate 18 18 16 Blood Pressure 119/62 Pulse Oximetry 95 Oxygen Delivery Oxygen Flow Rate 02/04/23 19:18 02/04/23 19:21 02/04/23 19:30 Temperature Pulse Rate 77 80 Respiratory Rate 18 18 Blood Pressure Pulse Oximetry 94 Oxygen Delivery Nasal Cannula Oxygen Flow Rate 2 02/04/23 21:28 02/04/23 20:00 02/05/23 01:22 Temperature 97.7 F Pulse Rate 73 83 Respiratory Rate 16 18 Blood Pressure 114/58 L Pulse Oximetry 95 98 Oxygen Delivery Nasal Cannula Oxygen Flow Rate 3 02/05/23 01:30 02/05/23 04:32 02/05/23 08:21 Temperature 97.5 F L Pulse Rate 80 68 73 Respiratory Rate 18 18 18 Blood Pressure 116/58 L Pulse Oximetry 95 Oxygen Delivery Oxygen Flow Rate 02/05/23 08:00 02/05/23 10:56 Temperature Pulse Rate Respiratory Rate Blood Pressure Pulse Oximetry 95 91 Oxygen Delivery Nasal Cannula Room Air Oxygen Flow Rate 1.5 Intake/Output Intake/Output: Intake & Output 02/02/23 02/03/23 02/04/23 02/05/23 23:59 23:59 23:59 23:59 Intake Total 1860 710 Balance 1860 710 Meds/Results Medications: Active Medications Generic Name Dose Route Start Last Admin Trade Name Freq PRN Reason Stop Dose Admin Acetaminophen 650 mg 02/04/23 01:53 02/04/23 16:42 Acetaminophen 325 Mg Tablet PO 650 mg Q6H PRN Administration Mild Pain (1-3) or Fever Albuterol 2.5 mg 02/03/23 20:00 02/05/23 08:19 Albuterol Sulfate Neb 2.5 Mg/3 Ml Inh INHALATION 2.5 mg Q6HRT SAJAN Administration Amlodipine Besylate 10 mg 02/04/23 09:00 02/05/23 08:07 Amlodipine Besylate 5 Mg Tablet PO 10 mg DAILY SAJAN Administration Dextrose 12.5 gm 02/03/23 23:29 Dextrose 50% 25 Gm/50 Ml Syringe IV PUSH PRN PRN Hypoglycemia Protocol Enoxaparin Sodium 40 mg 02/04/23 09:00 02/05/23 08:0
[2023-02-05 12:13] LABS: Glucose Point of Care 136 mg/dl (65-105)
[2023-02-05 17:26] LABS: Glucose Point of Care 169 mg/dl (65-105)
[2023-02-05 22:02] LABS: Glucose Point of Care 183 mg/dl (65-105)
[2023-02-06] VITALS (16 sets, daily range): BP systolic 124–150; BP diastolic 65–78; PULSE 78–84; RESP 18–22; TEMP 36.3–37.2; O2SAT 89–98
[2023-02-06] MEDS: ALBUTEROL SULFATE NEB 2.5 MG/3 ML INH INHALATION ×3 (07:23→20:12)
[2023-02-06] MEDS: IPRATROPIUM BR 0.02% INH SOLN 0.5 MG/2.5 ML VIAL INHALATION ×3 (07:23→20:12)
[2023-02-06 08:31] LABS: Glucose Point of Care 111 mg/dl (65-105)
[2023-02-06] MEDS: hydrALAZINE HCL 25 MG TABLET PO ×2 (09:11→18:02)
[2023-02-06] MEDS: predniSONE 20 MG TABLET 60 MG PO (09:11)
[2023-02-06] MEDS: amLODIPine BESYLATE 5 MG TABLET 10 MG PO (09:11)
[2023-02-06] MEDS: ENOXAPARIN 40 MG/0.4 ML SYRINGE SUB-Q (09:11)
[2023-02-06] MEDS: FAMOTIDINE 20 MG TABLET PO (09:12)
[2023-02-06] MEDS: MAGNESIUM OXIDE 400 MG TABLET PO (09:12)
[2023-02-06] MEDS: LOSARTAN POTASSIUM 100 MG TABLET PO (09:12)
[2023-02-06] MEDS: guaiFENesin 12 HR 600 MG TABCR 1200 MG PO ×2 (09:12→20:33)
[2023-02-06] MEDS: MULTIVITAMINS THERAPEUTIC TAB (*BKC) 1 TABLET PO (09:12)
--- NOTE | 2023-02-06 10:57 | PM.IMPN ---
Progress Note: A&P Assessment and Plan (1) Hypoxia: Code(s): R09.02 - Hypoxemia Status: Acute Assessment and Plan: Currently still on 1L. Patient is due to see Pulmonary in the next couple days. Will consult Pulmonary in the hospital (2) Bronchitis: Code(s): J40 - Bronchitis, not specified as acute or chronic Status: Acute Assessment and Plan: Continue current treatment (3) Obstructive sleep apnea: Code(s): G47.33 - Obstructive sleep apnea (adult) (pediatric) Status: Acute Assessment and Plan: Patient refusing CPAP (4) Hypertension: Code(s): I10 - Essential (primary) hypertension Status: Acute Assessment and Plan: Monitor (5) Diastolic CHF: Code(s): I50.30 - Unspecified diastolic (congestive) heart failure Status: Acute Assessment and Plan: Will give Lasix Subjective Date/time seen: 02/06/23 10:57 Interval history: No complaints Exam Const: Other: Well-developed, nontoxic-appearing female sitting up in bed in no acute distress. Weight: 134.8 kg. BMI: 49.5. HENMT: Other: Normocephalic, atraumatic. Nares pain bilaterally. Moist mucous membranes. Eyes: Other: Pupils are reactive. Extraocular motions intact. Sclerae anicteric. Neck: Other: Supple. Exam limited due to neck circumference. No obvious JVD or lymphadenopathy. Resp: Other: Respirations are nonlabored and she is speaking in full sentences. Lung sounds are a bit diminished with diffuse expiratory wheezing. Occasional rhonchi which improved with cough. Cardio: Other: Regular rate rhythm with normal S1-S2. GI: Other: Abdomen is soft, obese, nontender, nondistended with positive bowel sounds. Skin: Other: Warm and dry. No rash or lesion on limited exam. Neuro: Other: Alert. Cranial nerves 2-12 are grossly intact. No gross focal deficits to casual conversation. Extrem: Other: No cyanosis or clubbing. Trace yeny ankle edema bilaterally. No palpable knots or cords. Peripheral pulses intact. Psych: Other: Appropriate mood and affect. Objective Data Vital Signs Vital Signs: Vital Signs - 24 hr 02/05/23 13:43 02/05/23 14:40 02/05/23 14:49 Temperature 98.1 F Pulse Rate 78 79 Respiratory Rate 16 18 Blood Pressure 142/85 H Pulse Oximetry 93 94 Oxygen Delivery Room Air Oxygen Flow Rate 02/05/23 14:39 02/05/23 20:38 02/05/23 20:52 Temperature 97.7 F Pulse Rate 75 88 81 Respiratory Rate 18 18 18 Blood Pressure 137/79 Pulse Oximetry 94 Oxygen Delivery Oxygen Flow Rate 02/05/23 21:11 02/06/23 04:53 02/06/23 04:57 Temperature 97.3 F L Pulse Rate 82 80 Respiratory Rate 18 18 Blood Pressure 127/65 Pulse Oximetry 94 89 L Oxygen Delivery Room Air Oxygen Flow Rate 02/06/23 05:03 02/06/23 07:26 02/06/23 07:28 Temperature Pulse Rate 80 Respiratory Rate 20 Blood Pressure Pulse Oximetry 94 94 Oxygen Delivery Nasal Cannula Nasal Cannula Oxygen Flow Rate 1 1 02/06/23 07:43 Temperature Pulse Rate 78 Respiratory Rate 20 Blood Pressure Pulse Oximetry Oxygen Delivery Oxygen Flow Rate Intake/Output Intake/Output: Intake & Output 02/03/23 02/04/23 02/05/23 02/06/23 23:59 23:59 23:59 23:59 Intake Total 1860 1890 590 Balance 1860 1890 590 Meds/Results Medications: Active Medications Generic Name Dose Route Start Last Admin Trade Name Freq PRN Reason Stop Dose Admin Acetaminophen 650 mg 02/04/23 01:53 02/04/23 16:42 Acetaminophen 325 Mg Tablet PO 650 mg Q6H PRN Administration Mild Pain (1-3) or Fever Albuterol 2.5 mg 02/03/23 20:00 02/06/23 07:23 Albuterol Sulfate Neb 2.5 Mg/3 Ml Inh INHALATION 2.5 mg Q6HRT SAJAN Administration Amlodipine Besylate 10 mg 02/04/23 09:00 02/06/23 09:11 Amlodipine Besylate 5 Mg Tablet PO 10 mg DAILY SAJAN Adminis
[2023-02-06 12:17] LABS: Glucose Point of Care 115 mg/dl (65-105)
[2023-02-06] MEDS: FUROSEMIDE INJ 40 MG/4 ML VIAL IV PUSH (12:41)
[2023-02-06 17:34] LABS: Glucose Point of Care 234 mg/dl (65-105)
[2023-02-06] MEDS: BENZOCAINE/MENTHOL (*BKC) 18 EA LOZENGE 1 LOZENGE PO ×2 (18:01→20:36)
[2023-02-06 22:06] LABS: Glucose Point of Care 175 mg/dl (65-105)
[2023-02-06] MEDS: MELATONIN 5 MG TABLET PO (22:43)
[2023-02-07] MEDS: ALBUTEROL SULFATE NEB 2.5 MG/3 ML INH INHALATION ×2 (01:56→07:21)
[2023-02-07] MEDS: IPRATROPIUM BR 0.02% INH SOLN 0.5 MG/2.5 ML VIAL INHALATION ×2 (01:56→07:21)
[2023-02-07 01:58] VITALS: PULSE 82; RESP 20
[2023-02-07 05:49] VITALS: BP 134/80; PULSE 52; RESP 16; TEMP 36.5; O2SAT 100
[2023-02-07 07:21] VITALS: PULSE 86; RESP 20; O2SAT 97
[2023-02-07 07:35] VITALS: PULSE 87; RESP 20
[2023-02-07 08:20] LABS: Glucose Point of Care 114 mg/dl (65-105)
[2023-02-07 09:00] VITALS: BP 143/76
[2023-02-07 09:01] VITALS: O2SAT 91
[2023-02-07] MEDS: amLODIPine BESYLATE 5 MG TABLET 10 MG PO (09:01)
[2023-02-07] MEDS: FAMOTIDINE 20 MG TABLET PO (09:01)
[2023-02-07] MEDS: hydrALAZINE HCL 25 MG TABLET PO (09:01)
[2023-02-07] MEDS: MULTIVITAMINS THERAPEUTIC TAB (*BKC) 1 TABLET PO (09:01)
[2023-02-07] MEDS: ENOXAPARIN 40 MG/0.4 ML SYRINGE SUB-Q (09:01)
[2023-02-07] MEDS: guaiFENesin 12 HR 600 MG TABCR 1200 MG PO (09:01)
[2023-02-07] MEDS: LOSARTAN POTASSIUM 100 MG TABLET PO (09:01)
[2023-02-07] MEDS: MAGNESIUM OXIDE 400 MG TABLET PO (09:01)
[2023-02-07] MEDS: predniSONE 20 MG TABLET 60 MG PO (09:01)
[2023-02-07] MEDS: FUROSEMIDE INJ 40 MG/4 ML VIAL 20 MG IV PUSH (09:04)
[2023-02-07 10:08] LABS: Anion Gap 7 mmol/L (8-16); Blood Urea Nitrogen 20 mg/dL (7-17); Calcium 9.3 mg/dL (8.4-10.2); Carbon Dioxide 33 mmol/L (22-30); Chloride 97 mmol/L (98-107); Estimated CRCL calculation 66 ml/min; Estimated Glomerular Filt Rate > 60; Glucose 161 mg/dL (65-110); Potassium 3.5 mmol/L (3.4-5.0); Sodium 137 mmol/L (137-145)
--- NOTE | 2023-02-07 11:09 | PM.DS ---
DS: Admitting Diagnosis Discharge Date February 07, 2023 Admitting Diagnosis Shortness of breath and hypoxia. DS: Discharge Diagnosis Discharge Diagnosis (1) Hypoxia: Code(s): R09.02 - Hypoxemia Status: Acute Assessment and Plan: Currently still on 1L. Patient is due to see Pulmonary in the next couple days. Will consult Pulmonary in the hospital (2) Bronchitis: Code(s): J40 - Bronchitis, not specified as acute or chronic Status: Acute Assessment and Plan: Continue current treatment (3) Obstructive sleep apnea: Code(s): G47.33 - Obstructive sleep apnea (adult) (pediatric) Status: Acute Assessment and Plan: Patient refusing CPAP (4) Hypertension: Code(s): I10 - Essential (primary) hypertension Status: Acute Assessment and Plan: Monitor (5) Diastolic CHF: Code(s): I50.30 - Unspecified diastolic (congestive) heart failure Status: Acute Assessment and Plan: Will give Lasix DS: Summary Hospital Course Hospital Course: Patient is a 72-year-old female who comes in likely has underlying sleep apnea. Came in with bronchitis symptoms with cough and congestion hypoxia. She was started on prednisone and did well. Also she likely has underlying sleep disordered breathing obstructive sleep apnea and we gave her couple doses of Lasix and this improved her breathing as well but I think most her breathing was related to bronchitis. Nonetheless patient does follow-up with Pulmonary and has an appointment this week. I gave her couple doses of Lasix to take when she is discharged as needed for edema. She does not need any more prednisone. She is going to follow up with Pulmonary this we can get evaluated for obstructive sleep apnea. Otherwise she is doing her normal activities and can be discharged. Time Spent with Patient Time attestation: Total time spent providing and/or coordinating discharge services: Exam Const: Other: Well-developed, nontoxic-appearing female sitting up in bed in no acute distress. Weight: 134.8 kg. BMI: 49.5. HENMT: Other: Normocephalic, atraumatic. Nares pain bilaterally. Moist mucous membranes. Eyes: Other: Pupils are reactive. Extraocular motions intact. Sclerae anicteric. Neck: Other: Supple. Exam limited due to neck circumference. No obvious JVD or lymphadenopathy. Resp: Other: Respirations are nonlabored and she is speaking in full sentences. Lung sounds are a bit diminished with diffuse expiratory wheezing. Occasional rhonchi which improved with cough. Cardio: Other: Regular rate rhythm with normal S1-S2. GI: Other: Abdomen is soft, obese, nontender, nondistended with positive bowel sounds. Skin: Other: Warm and dry. No rash or lesion on limited exam. Neuro: Other: Alert. Cranial nerves 2-12 are grossly intact. No gross focal deficits to casual conversation. Extrem: Other: No cyanosis or clubbing. Trace yeny ankle edema bilaterally. No palpable knots or cords. Peripheral pulses intact. Psych: Other: Appropriate mood and affect. DS: Data Data Completed and Pending Labs on day of discharge: Labs from last 24 hours 02/07/23 02/07/23 02/06/23 09:40 08:06 21:21 Sodium 137 Potassium 3.5 Chloride 97 L Carbon Dioxide 33 H Anion Gap 7 L BUN 20 H Creatinine 0.90 Estim Creat Clear Calc 66 Estimated GFR > 60 Glucose 161 H POC Capillary Glucose 114 H 175 H Calcium 9.3 02/06/23 02/06/23 17:29 12:07 Sodium Potassium Chloride Carbon Dioxide Anion Gap BUN Creatinine Estim Creat Clear Calc Estimated GFR Glucose POC Capillary Glucose 234 H 115 H Calcium Discharge Plan Discharge Attending physician on discharge: Godwin Landaverde Discharging Clinician: Godwin Landaverde Patient Disposition: Home, Self-Care Activity: as
[2023-02-07 11:37] LABS: Glucose Point of Care 117 mg/dl (65-105)
== END 2023-02-07 14:05 | disposition home or self-care (01) | DRG 202 ==
LOC: ANHED 18:25 → ANH3MED 18:36
PROVIDERS: General Practice; Physician Assistant; Preventive Medicine Aerospace Medicine; Admitting Provider Student in an Organized Health Care Education/Training Program; Emergency Provider Emergency Medicine; PCP Nurse Practitioner Family; Visit Provider Chiropractor
DX: J20.8 Acute bronchitis due to other specified organisms (principal); I50.31 Acute diastolic (congestive) heart failure; J96.21 Acute and chronic respiratory failure with hypoxia; Z68.42 Body mass index [BMI] 45.0-49.9, adult; G47.33 Obstructive sleep apnea (adult) (pediatric); I11.0 Hypertensive heart disease with heart failure; D64.9 Anemia, unspecified; E66.01 Morbid (severe) obesity due to excess calories; E11.9 Type 2 diabetes mellitus without complications; Z96.653 Presence of artificial knee joint, bilateral; Z90.49 Acquired absence of other specified parts of digestive tract; Z90.710 Acquired absence of both cervix and uterus; Z98.42 Cataract extraction status, left eye; Z98.41 Cataract extraction status, right eye; Z96.1 Presence of intraocular lens; Z98.84 Bariatric surgery status; Z20.822 Contact with and (suspected) exposure to COVID-19; Z91.148 Patient's other noncompliance with medication regimen for other reason
CPT/HCPCS: 36415; 36600; 71046; 71275; 80048; 80053; 82375; 82805; 82948; 83036; 83050; 83880; 84484; 85025; 85380; 87070; 87205; 87636; 93005; 94640; 94667; 94668; 96365; 96375; 99285; A9270; G0378; J0456; J0696; J1650; J1940; J7512; Q9967

== ENCOUNTER 2023-02-10 09:09 | Outpatient (CLI) | payer OTHER, SELFPAY ==
--- NOTE | 2023-02-10 12:37 | WPDSIXMINUTE ---
Six Minute Walk Procedure Procedure Performed Pulmonary Stress Test (6 min walk) Six Minute Walk Six Minute Walk: This is a 6 minute walk test. The test was performed and interpreted in accordance with the 2014 ERS/ATS task force guidelines. Findings: The patient's resting room air oxygen saturation measured by pulse oximetry was 92% and heart rate was 82 bpm. Patient ambulated for 244 meters and oxygen saturation remained 89 to 91%. Heart rate at the end of the study was 110 bpm. The patient did not qualify for supplemental oxygen at rest or with ambulation. There are no prior studies for comparison.
== END 2023-02-10 09:10 | disposition home or self-care (01) ==
LOC: ANHPFT 09:10
PROVIDERS: PCP Nurse Practitioner Family; Visit Provider Nurse Practitioner Family
DX: R09.02 Hypoxemia (principal)
CPT/HCPCS: 94618

== ENCOUNTER 2023-02-16 02:24 | Inpatient (IN) | payer OTHER, SELFPAY ==
[2023-02-16] VITALS (18 sets, daily range): BP systolic 116–191; BP diastolic 60–106; PULSE 57–85; RESP 13–22; TEMP 36.1–37.1; O2SAT 86–95; BMI 48.2
--- NOTE | ~2023-02-16 | US_ITS ---
EXAMINATION: US venous doppler UE DATE: 02/17/2023 10:43 INDICATION: Shortness of breath. TECHNIQUE: Grayscale images without and with compression and Doppler images of the bilateral upper ex tremity veins were obtained. COMPARISON: None. FINDINGS: The right internal jugular vein, subclavian vein, axillary vein, brachial vein, basilic vein, cephali c vein, radial vein, and ulnar vein are patent. The left internal jugular vein, subclavian vein, axillary vein, brachial vein, basilic vein, cephalic vein, radial vein, and ulnar vein are patent. IMPRESSION: 1. Patent bilateral upper extremity veins. No evidence of venous thrombosis. Reviewed, dictated and finalized at location A.
--- NOTE | ~2023-02-16 | XR_ITS ---
Portable chest x-ray Comparison: 02/16/2023 Clinical History: Pneumonia Findings: There is mild bibasilar haziness. No pleural effusion or pneumothorax. There is linear sca r or atelectasis at the left lung base. Cardiomediastinal silhouette is stable. Bones and soft tissu es are unremarkable. Impression: Probable minimal bibasilar pulmonary edema/atelectasis with linear left basilar scarring. Correlate c linically for infection. Reviewed, dictated and finalized at location . Impression: Probable minimal bibasilar pulmonary edema/atelectasis with linear left basilar scarring. Correlate clinically for infection.
--- NOTE | ~2023-02-16 | US_ITS ---
EXAMINATION: US venous doppler [facility] DATE: 02/17/2023 10:42 INDICATION: Shortness of breath TECHNIQUE: Grayscale ultrasound images without and with compression and Doppler ultrasound images of the bilateral lower extremity veins were obtained. COMPARISON: None. FINDINGS: The visualized portions of right common femoral vein, profunda (deep) femoral vein, femoral vein, pop liteal vein, posterior tibial veins, peroneal veins, anterior tibial vein and greater saphenous vein outflow are patent. The visualized portions of left common femoral vein, profunda femoral vein, femoral vein, popliteal v ein, posterior tibial veins, peroneal veins, anterior tibial vein and greater saphenous vein outflow are patent. IMPRESSION: 1. No deep venous thrombosis in either lower limb. Reviewed, dictated and finalized at location A.
--- NOTE | ~2023-02-16 | XR_ITS ---
Clinical Indication: Shortness of breath AP and lateral views of the chest: Comparison: 02/03/2023 Findings: The lungs are clear, without evidence of focal consolidation or pleural effusion. Cardiome diastinal silhouette is within normal limits. Bones and soft tissues are unremarkable. Impression: Normal chest. Reviewed, dictated and finalized at location . Impression: Normal chest.
--- NOTE | ~2023-02-16 | CT_ITS ---
EXAMINATION: CTA chest PE protocol DATE: 02/16/2023 17:33 INDICATION: Shortness of breath TECHNIQUE: Computed tomography (CT) pulmonary angiogram of the chest was performed with 200 mL Omnipa que-350 intravenous contrast. Additional 3D reconstructions utilizing coronal maximum intensity proje ction (MIP) were performed. Automated exposure control and iterative reconstruction technique were em ployed. The dose-length product was 1964.52 mGy-cm. COMPARISON: 02/03/2023 FINDINGS: Good contrast opacification of the pulmonary arteries. There is mild streak artifact from dense contr ast in the superior vena cava and right atrium. There is also mild scattered respiratory motion artif act most prominent at the lung bases where it mildly decreases sensitivity in some of the smaller sub segmental pulmonary arteries. No pulmonary embolism identified. Worsening band of discoid atelectasis in the anterior segment of the left upper lobe. Unchanged additional linear band of discoid atelecta sis at the lingula. No pneumonia, pulmonary edema, pleural effusion or pneumothorax. Calcified left u pper lobe nodule along with calcified bilateral hilar lymph nodes consistent with old granulomatous d isease. Heart size is normal. No pericardial effusion. Thoracic aorta is normal in caliber with no di ssection. No pathologically enlarged thoracic lymphadenopathy. Postoperative changes in the upper abd omen including cholecystectomy clips at the gallbladder fossa and suture line and multiple surgical c lips along the proximal stomach made related to prior bariatric surgery. Moderate to severe thoracic spondylosis with bridging osteophytes at multiple levels consistent with diffuse idiopathic skeletal hyperostosis (DISH). IMPRESSION: 1. No pulmonary embolism. Sensitivity mildly decreased at the lower lung zones due to small mild resp iratory motion. 2. Atelectasis at the lingula and left upper lobe, the latter increased since the prior study. Reviewed, dictated and finalized at location A. IMPRESSION: 1. No pulmonary embolism. Sensitivity mildly decreased at the lower lung zones due to small mild respiratory motion. 2. Atelectasis at the lingula and left upper lobe, the latter increased since t he prior study.
--- NOTE | 2023-02-16 02:27 | ECG_ITS ---
Measurements Intervals [place] Rate: 63 P: 21 [place]: 212 QRS: -49 QRSD: 91 T: 45 QT: 389 QTc: 400 Interpretive Statements SINUS RHYTHM WITH FIRST DEGREE AV BLOCK LEFT ANTERIOR FASCICULAR BLOCK [QRS AXIS <= -45, QR IN I, RS IN II] POSSIBLE ANTERIOR MYOCARDIAL INFARCTION , OF INDETERMINATE AGE [30 ms Q WAVE IN V3/V4, OR R < 0.2 mV IN V4] BORDERLINE ECG COMPARED TO ECG 02/03/2023 13:20:07 FIRST DEGREE AV BLOCK NOW PRESENT LEFT ANTERIOR FASCICULAR BLOCK NOW PRESENT Electronically Signed On 02-16-2023 17:14:09 CDT by Gallo Casillas M.D.
[2023-02-16 02:45] LABS: Basophils Absolute Auto 0.1 K/mm3 (0.0-0.1); Basophils Percent Auto 0.4 % (0.2-1.2); Eosinophils Percent Auto 7.8 % (0-4.4); Hematocrit 41.6 % (37.0-47.0); Hemoglobin 12.9 g/dL (12.0-15.0); Immature Granulocyte Percent A 0.7 % (0-0.5); Lymphocytes Absolute Auto 2.94 K/mm3 (0.9-3.2); Mean Corpuscular Hemoglobin 26.4 pg (26-34); Mean Corpuscular Volume 85.2 fl (80-100); Mean Platelet Volume 9.8 fl (7.4-10.4); Monocytes Percent Auto 7.6 % (2.6-8.5); Neutrophils Absolute Auto 8.2 K/mm3 (1.3-6.7); Neutrophils Percent Auto 61.5 % (45.5-73.1); Platelet Count Result 346 k/mm3 (150-375); Red Blood Count 4.88 M/mm3 (4.2-5.4); Red Cell Distribution Width 16.9 % (11.5-14.5); White Blood Count 13.4 K/mm3 (4.5-10.0)
[2023-02-16 02:58] LABS: Alanine Aminotransferase 20 U/L (6-35); Albumin Level 4.1 g/dL (3.5-5.1); Alkaline Phosphatase 81 U/L (38-126); Anion Gap 6 mmol/L (8-16); Aspartate Amino Transferase 32 U/L (14-36); Bilirubin,Total 0.6 mg/dL (0.2-1.3); Blood Urea Nitrogen 15 mg/dL (7-17); Calcium 9.2 mg/dL (8.4-10.2); Carbon Dioxide 28 mmol/L (22-30); Chloride 105 mmol/L (98-107); Estimated CRCL calculation 83 ml/min; Estimated Glomerular Filt Rate > 60; Glucose 117 mg/dL (65-110); Potassium 4.4 mmol/L (3.4-5.0); Sodium 139 mmol/L (137-145)
[2023-02-16] MEDS: ALBUTEROL SULFATE NEB 2.5 MG/3 ML INH INHALATION ×4 (07:04→20:38)
[2023-02-16] MEDS: IPRATROPIUM BR 0.02% INH SOLN 0.5 MG/2.5 ML VIAL INHALATION ×2 (07:04→20:38)
[2023-02-16 07:06] LABS: NT Pro B Type Natriuretic Pept 27 pg/mL (19.9-100); Troponin I < 0.012 ng/mL (0.000-0.034)
[2023-02-16 07:11] LABS: D Dimer 0.72 ug/mL (<0.48)
--- NOTE | 2023-02-16 09:20 | ADMGEN ---
This patient, Clemencia Figueredo, was admitted to 3 [facility] Surg Room 320-01. Patient/family oriented to hospital policies and general routines including ID bracelet, bed and alarms, visiting hours, pain management, procedures, bathroom and other care routines, personal items, smoking policy, room service/diet, and visiting hours. Information on how to activate the Rapid Response Team has been discussed. Patient/Family are encouraged to report perceived risks to care and to ask questions if they do not understand what they are told or what they should do.
[2023-02-16 09:26] LABS: CRP 1.7 mg/dL (<1.0)
[2023-02-16 09:47] LABS: Procalcitonin 0.1 ng/mL
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
[2023-02-16] MEDS: BENZONATATE 100 MG CAPSULE 200 MG PO (15:08)
[2023-02-16] MEDS: ACETAMINOPHEN 325 MG TABLET 650 MG PO (15:08)
[2023-02-16] MEDS: methylPREDNISolone SOD SUCC 125 MG VIAL IV PUSH (15:09)
--- NOTE | 2023-02-16 15:50 | PM.CNPUL ---
Assessment and Plan Assessment and plan (1) Acute hypoxemic respiratory failure: Code(s): J96.01 - Acute respiratory failure with hypoxia Status: Acute Plan 72-year-old with a history of morbid obesity, recurrent bouts of pneumonia-bronchitis since June of 2022, multiple admissions responding to steroids, antibiotics and Lasix. She is a never smoker and PFTs are inconsistent with COPD. She has a history of untreated obstructive sleep apnea with an echocardiogram on 10/11/2022 showing an LVEF of 70%, normal RV size and function, normal right atrial size, PASP of 42 with grade 1 diastolic dysfunction. Patient was recently admitted from 02/03/2023 through 02/08/2023 and treated for bronchitis and fluid overload with Lasix and steroids. Home O2 assessment was not performed prior to discharge she improved but presents now with worsening dyspnea. On 02/10/2023 the patient had a 6 minute walk an ambulated 244 m with a kvng saturation of 89%. Patient presents to the emergency room now with positive D-dimer, hypoxemic respiratory failure requiring 4 L nasal cannula, no evidence of fluid overload, mild wheezing, BNP of 27, clear chest x-ray, with an ABG on this of 7.38/48/73. Etiology of patient's hypoxemic respiratory failure includes PE, pulmonary hypertension with right to left shunt, morbid obesity with atelectasis, asthma-reactive airways disease and untreated sleep apnea. Doubt pneumonia Plan: I will perform a CT angiogram of the chest. I will order an echocardiogram with a bubble study. The patient may have a component of reactive airways disease she does have faint wheezes currently and I will increase her albuterol and ipratropium nebulizers from q.6 hours to q.[address] the patient on Solu-Medrol 40 mg IV q.6 hours. The patient has been placed on vancomycin and Levaquin and I will continue these until cultures are negative and then deescalate. I will send the respiratory pathogen panel to [facility]. Continue supplemental oxygen with a goal saturation 90-94%. Discussed with Ana Geronimo, will follow with you History of Present Illness History of Present Illness Consult date: 02/16/23 Chief complaint: Bronchitis with Hypoxia Narrative: 02/16/2023: This is a new pulmonary consult for recurrent pneumonia and hypoxemia. Patient is followed in the Pulmonary Clinic for untreated sleep apnea, last seen on 10/24/2022. From that note: 6 week follow-up regarding dyspnea. Hx HTN, DM, TAE untreated. Hospitalized June 2022 bilateral pneumonia; hypercapnic respiratory failure and treated with BiPAP support.? Patient underwent testing done since last visit, discussed results with patient. Patient reports she has improved greatly since her pneumonia. Denies dyspnea, cough, wheezing, fever, hemoptysis, fevers, chest pains/tightness, or nighttime breathing issues. Started taking daily MV and feels more energy with it. Reports sleep is good and daytime function is good. She did not want to do sleep testing as she states she doesn't want to treat her sleep apnea. 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 She states it caused more issues with her sleep. Assessment and plan: Obstructive sleep apnea Recommend treatment of her sleep apnea d/t her mild pulmonary hypertension. She declines at this time. We did discuss risks of not treating sleep apnea.? The risks of untreated sleep apnea include memory impairment, brain dysfunction, cognitive decline, uncontrolled hypertension, weight gain, arrhythmias, fatigue, increased risk for diabetes, increased risk for heart attack and stroke. If she changes her mind, she will let us know. She may be a candidate for an oral appliance if she decides this. F/u PRN. Patient tells me that approximately 3-4 weeks ago she developed cough with yellow phlegm. These symptoms persisted and she was admitted to the hospital from 02/03 to 02/08/2023. She was diagnosed with br
[2023-02-16] MEDS: hydrALAZINE HCL 25 MG TABLET PO (16:03)
[2023-02-16] MEDS: levoFLOXacin 750 MG/D5W 150 ML 750 MG/150 ML BAG 100 MG IVPB (16:03)
[2023-02-16] MEDS: metFORMIN HCL 500 MG TABLET PO (16:03)
[2023-02-16 16:17] LABS: Alveolar/Arterial O2 Gradient 128.1 mmHg; Base Excess ABG 1.6 mEq/l (+/-2.0); Fractional Inspired Oxygen 36 %; HCO3 ABG 27.4 mEq/l (22.0-26.0); Modified Allen's Test Pass; Oxygen Content ABG 17.7 %vol (16.0-22.0); Oxygen Saturation ABG 94.3 % (95.0-100.0); Oxyhemoglobin 93.1 % THb (90.0-100.0); PCO2 ABG 47.9 mmHg (35.0-45.0); PO2 FiO2 Ratio Arterial Blood 2.03 %; Site Drawn RIGHT RADIAL; Total Hemoglobin 13.5 g/dL (12.0-18.0); pH ABG 7.376 (7.350-7.450)
[2023-02-16 16:18] LABS: Device NASAL CANNULA
[2023-02-16 16:27] LABS: Influenza A QL RT-PCR Negative (Negative); Influenza B QL RT-PCR Negative (Negative); RSV RNA, RT-PCR Negative (Negative); SARS-CoV-2 RNA PCR Negative (Negative)
[2023-02-16 16:49] LABS: Glucose Point of Care 129 mg/dl (65-105)
[2023-02-16 18:42] LABS: MRSA (PCR) NOT DETECTED (NOT DETECTE)
[2023-02-16] MEDS: VANCOMYCIN 1,250 MG/NS 250 ML 1,250 MG/250 ML BAG 125 MG IVPB (18:55)
[2023-02-16 20:39] LABS: Glucose Point of Care 213 mg/dl (65-105)
[2023-02-16] MEDS: VANCOMYCIN 1,250 MG/NS 250 ML 1,250 MG/250 ML BAG 166.67 MG IVPB (21:05)
[2023-02-16] MEDS: INSULIN ASPART (*BKC) 100 UNITS/ML SUB-Q (21:06)
[2023-02-16] MEDS: MELATONIN 3 MG TABLET PO (21:08)
[2023-02-16] MEDS: methylPREDNISolone SOD SUCC 40 MG VIAL IV PUSH (23:29)
[2023-02-17] VITALS (20 sets, daily range): BP systolic 121–134; BP diastolic 40–67; PULSE 75–102; RESP 13–20; TEMP 36.2–36.7; O2SAT 90–93
[2023-02-17] MEDS: ALBUTEROL SULFATE NEB 2.5 MG/3 ML INH INHALATION ×6 (00:13→20:14)
[2023-02-17] MEDS: IPRATROPIUM BR 0.02% INH SOLN 0.5 MG/2.5 ML VIAL INHALATION ×6 (00:13→20:14)
[2023-02-17] MEDS: BENZONATATE 100 MG CAPSULE 200 MG PO ×3 (00:39→20:48)
[2023-02-17] MEDS: methylPREDNISolone SOD SUCC 40 MG VIAL IV PUSH (05:44)
[2023-02-17 06:37] LABS: Hemoglobin 12.5 g/dL (12.0-15.0); Mean Corpuscular HGB Conc 30.5 g/dl (32-36); Mean Corpuscular Hemoglobin 26.3 pg (26-34); Mean Corpuscular Volume 86.1 fl (80-100); Mean Platelet Volume 10.1 fl (7.4-10.4); Platelet Count Result 371 k/mm3 (150-375); Red Blood Count 4.76 M/mm3 (4.2-5.4); Red Cell Distribution Width 16.7 % (11.5-14.5)
[2023-02-17 06:47] LABS: Anion Gap 10 mmol/L (8-16); Blood Urea Nitrogen 17 mg/dL (7-17); Calcium 9.3 mg/dL (8.4-10.2); Carbon Dioxide 24 mmol/L (22-30); Chloride 102 mmol/L (98-107); Estimated CRCL calculation 83 ml/min; Estimated Glomerular Filt Rate > 60; Glucose 207 mg/dL (65-110); Potassium 4.5 mmol/L (3.4-5.0); Sodium 136 mmol/L (137-145)
--- NOTE | 2023-02-17 08:09 | ECHO_ITS ---
Patient Info Name: Clemencia Figueredo Age: 72 years : 1950 Gender: Female Ht: 65 in Wt: 289 lbs BSA: 2.53 m2 HR: 99 bpm BP: 127 / 51 mmHg Technical Quality: Fair Exam Date: 02/17/2023 1:12 PM Exam Location: [facility] Pulmonary Exam Room: [facility] Patient Status: Inpatient Admit Date: 02/16/2023 Staff Ordering Physician: Godwin Holder MD Corrosion Control Engineer: Genny Miles RDCS Attending Provider: Kira Caldwell DO Referring Physician: Gallo HOOKS; Exam Type: CA echo dop bubble study w con Study Info Indications - hypoxia assess for pfo Complete two-dimentional, color flow and Doppler transthoracic echocardiogram is performed with agitated saline and with contrast to opacify the left ventricle and to improve the delineation of the left ventricle endocardial borders. Contrast/Agitated Saline Contrast/Ag. Saline: Definity Amount: 1.00 ml Administered By: Avril Carballo RDCS Existing IV Access: Yes Summary 1. Left ventricular chamber dimension is normal. 2. Definity contrast administered improved wall motion interpretation. 3. Left ventricular systolic function is hyperdynamic, estimated at >70%. 4. The left ventricular diastolic function is grade I diastolic dysfunction. 5. E/e' 9 is minimally elevated. 6. Right atrial chamber dimension is mildly enlarged. 7. There is mild tricuspid valve regurgitation. 8. Moderate pulmonary hypertension, estimated pulmonary arterial systolic pressure is 51 mmHg. Left Ventricle E/e' 9 is minimally elevated. Definity contrast administered improved wall motion interpretation. Left ventricular chamber dimension is normal. Left ventricular systolic function is hyperdynamic, estimated at >70%. The left ventricular diastolic function is grade I diastolic dysfunction. Right Ventricle Right ventricular chamber dimension is normal. Right ventricular systolic function is normal. Left Atria Left atrial chamber dimension is normal. Right Atria Right atrial chamber dimension is mildly enlarged. Atrial Septum Agitated saline injection with and without valsalva maneuver opacified right side cardiac chambers without shunt to left side cardiac chambers. Intact interatrial septum visualized by 2D and agitated saline imaging. Aortic Valve The aortic valve is probable trileaflet. There is no aortic valve stenosis. There is no aortic valve regurgitation. Pulmonic Valve There is no pulmonic regurgitation. Mitral Valve There is no mitral valve stenosis. There is no mitral valve regurgitation. Tricuspid Valve There is mild tricuspid valve regurgitation. Moderate pulmonary hypertension, estimated pulmonary arterial systolic pressure is 51 mmHg. Pericardium/Pleural There is no pericardial effusion. Inferior Vena Cava Normal inferior vena cava with >50% collapse upon inspiration consistent with normal right atrial pressure, 5 mmHg. Aorta The aortic root size at the sinus of Valsalva is normal. Left Ventricular Outflow Tract Name Value Normal LVOT 2D LVOT Diameter 2.1 cm LVOT Doppler LVOT Peak Gradient 10 mmHg LVOT Mean Gradient 8 mmHg LVOT VTI
[2023-02-17 08:31] LABS: Glucose Point of Care 257 mg/dl (65-105)
[2023-02-17] MEDS: INSULIN ASPART (*BKC) 100 UNITS/ML SUB-Q ×3 (08:37→20:11)
[2023-02-17] MEDS: amLODIPine BESYLATE 5 MG TABLET 10 MG PO (08:38)
[2023-02-17] MEDS: hydrALAZINE HCL 25 MG TABLET PO ×2 (08:38→17:33)
[2023-02-17] MEDS: metFORMIN HCL 500 MG TABLET PO ×2 (08:38→17:33)
[2023-02-17] MEDS: ENOXAPARIN 40 MG/0.4 ML SYRINGE SUB-Q (08:38)
[2023-02-17] MEDS: FAMOTIDINE 20 MG TABLET PO (08:38)
[2023-02-17] MEDS: MAGNESIUM OXIDE 400 MG TABLET PO (08:38)
[2023-02-17] MEDS: MULTIVITAMINS THERAPEUTIC TAB (*BKC) 1 TABLET PO (08:38)
[2023-02-17] MEDS: LOSARTAN POTASSIUM 100 MG TABLET PO (08:38)
--- NOTE | 2023-02-17 09:56 | PM.PNPUL ---
Progress Note: A&P Assessment and Plan (1) Acute hypoxemic respiratory failure: Code(s): J96.01 - Acute respiratory failure with hypoxia Status: Acute Assessment and Plan: 72-year-old with a history of morbid obesity, recurrent bouts of pneumonia-bronchitis since June of 2022, multiple admissions responding to steroids, antibiotics and Lasix. She is a never smoker and PFTs are inconsistent with COPD. She has a history of untreated obstructive sleep apnea with an echocardiogram on 10/11/2022 showing an LVEF of 70%, normal RV size and function, normal right atrial size, PASP of 42 with grade 1 diastolic dysfunction. Patient was recently admitted from 02/03/2023 through 02/08/2023 and treated for bronchitis and fluid overload with Lasix and steroids. Home O2 assessment was not performed prior to discharge she improved but presents now with worsening dyspnea. On 02/10/2023 the patient had a 6 minute walk an ambulated 244 m with a kvng saturation of 89%. Patient presents to the emergency room now with positive D-dimer, hypoxemic respiratory failure requiring 4 L nasal cannula, no evidence of fluid overload, mild wheezing, BNP of 27, clear chest x-ray, with an ABG on this of 7.38/48/73. Etiology of patient's hypoxemic respiratory failure includes PE, pulmonary hypertension with right to left shunt, morbid obesity with atelectasis, asthma-reactive airways disease and untreated sleep apnea. Doubt pneumonia Plan: I will perform a CT angiogram of the chest. I will order an echocardiogram with a bubble study. The patient may have a component of reactive airways disease she does have faint wheezes currently and I will increase her albuterol and ipratropium nebulizers from q.6 hours to q.[address] the patient on Solu-Medrol 40 mg IV q.6 hours. The patient has been placed on vancomycin and Levaquin and I will continue these until cultures are negative and then deescalate. I will send the respiratory pathogen panel to [facility]. Continue supplemental oxygen with a goal saturation 90-94%. Later in the day the patient had a CT angiogram of the chest was negative for PE, there was atelectasis in the left upper lobe in the lingula and no focal consolidations, interstitial lung disease, pleural disease, bronchiectasis, emphysema or masses. 02/17: The patient tells me she is better. She slept last night. She has no shortness of breath at rest. She is ambulating in the room to the bathroom better and this has improved since she was at home when she could only walk 2 or 3 steps. She states the nebulizer her helping her. She has less phlegm production. She is afebrile. White blood cell count is 14.0, creatinine is 0.7. Saturations on 2.5 L were 97%. I turned her to room air and her saturations were 91%. Plan: Patient has improved with steroids, bronchodilators and 2 days of vancomycin and Levaquin. Her CT scan of the chest does not show focal infiltrate consistent with a pneumonia. Her MRSA assay swab is negative and i will discontinue the vancomycin as I do not believe the patient has a pneumonia. I will continue Levaquin for possible tracheobronchitis. Echo with bubble and upper lower extremity Dopplers pending to assess for pulmonary hypertension and [id number] shunt. I suspect the patient has clinical history is more consistent with an asthma-reactive airways disease and her morbid obesity with atelectasis likely explains her hypoxia. In addition she also likely has untreated sleep apnea and she will need an overnight oximetry in the hospital to assess her oxygen needs at night while she is awaiting an outpatient sleep study. I will decrease her Solu-Medrol from 40 Q 6 to 20 q.6 and continue her nebulized albuterol and ipratropium at q.[address] Caldwell, will follow with you Subjective Date/time seen: 02/17/23 09:56 Interval history: 02/16/2023: This is a new pulmonary consult for recurrent p
--- NOTE | 2023-02-17 11:01 | PM.IMPN ---
Progress Note: A&P Assessment and Plan (1) Acute hypoxemic respiratory failure: Code(s): J96.01 - Acute respiratory failure with hypoxia Status: Acute Assessment and Plan: Recurrent admissions for shortness of breaths likely secondary to reactive airway disease versus postviral asthma, appreciate pulmonology consultation Improving on steroids, bronchodilators and Levaquin, vancomycin discontinued (2) Type 2 diabetes mellitus: Qualifiers: Diabetes mellitus complication status: without complication Diabetes mellitus custodial insulin use: without custodial use Qualified Code(s): E11.9 - Type 2 diabetes mellitus without complications Code(s): E11.9 - Type 2 diabetes mellitus without complications Status: Acute Assessment and Plan: Hypoglycemia protocol, Accu-Cheks, sliding scale insulin, A1C 6.1 on 02/04/23, hold metformin Blood glucose reviewed 02/17 Plan Chronic Conditions - insomnia r/t dyspnea: reports melatonin worked during last admission, restarted - continue amlodipine, famotidine, hydralazine, losartan, magnesium supplement, and multivitamin Diet: diabetic diet GI Prophylaxis: home famotidine continued DVT Prophylaxis: SCDs, Lovenox 40 Lines: pIV, midline x1 Code Status: full code, does not want extended life support. Subjective Date/time seen: 02/17/23 11:01 Interval history: 72-year-old with a history of morbid obesity, recurrent bouts of pneumonia-bronchitis since June of 2022, multiple admissions responding to steroids, antibiotics and Lasix presenting with recurrent shortness of breath, chronic cough and general malaise and currently being treated for possible postviral asthma. No overnight events noted. No chest pain or shortness of breath. No nausea, vomiting or diarrhea. No fevers or chills. Still with a nagging cough, occasionally productive of sputum. Review of Systems Review of Systems: 12 point review of systems was assessed and was negative except as noted in the HPI Exam Narrative: General: No acute distress, alert and oriented per baseline HEENT: Atraumatic, normocephalic, mucous membranes moist CV: Regular rate and rhythm, S1, S2 Lungs: Scattered expiratory wheezes, no crackles, diminished at bases Abdomen: Soft, nontender, nondistended Extremities: Normal to inspection Skin: No rashes noted, no lesions or wounds seen Psych: Euthymic, normal affect Objective Data Vital Signs Vital Signs: Vital Signs - 24 hr 02/16/23 14:00 02/16/23 16:00 02/16/23 20:39 Temperature 97.0 F L 97.0 F L Pulse Rate 57 L 57 L 84 Respiratory Rate 18 18 20 Blood Pressure 141/60 H 141/60 H Pulse Oximetry 91 91 Oxygen Delivery Oxygen Flow Rate 02/16/23 20:43 02/16/23 20:51 02/16/23 20:00 Temperature 98.7 F Pulse Rate 80 85 Respiratory Rate 20 13 Blood Pressure 139/68 Pulse Oximetry 92 90 Oxygen Delivery Nasal Cannula Oxygen Flow Rate 2 02/16/23 23:32 02/17/23 00:13 02/17/23 00:25 Temperature 98.5 F Pulse Rate 84 75 77 Respiratory Rate 13 20 20 Blood Pressure 123/66 Pulse Oximetry 92 Oxygen Delivery Oxygen Flow Rate 02/17/23 03:53 02/17/23 04:14 02/17/23 04:28 Temperature 97.2 F L Pulse Rate 91 82 84 Respiratory Rate 13 20 20 Blood Pressure 134/65 Pulse Oximetry 91 Oxygen Delivery Oxygen Flow Rate 02/17/23 07:40 02/17/23 07:44 02/17/23 07:58 Temperature Pulse Rate 78 90 Respiratory Rate 20 20 Blood Pressure Pulse Oximetry 91 Oxygen Delivery Nasal Cannula Oxygen Flow Rate 2 02/17/23 08:35 Temperature Pulse Rate Respiratory Rate Blood Pressure Pulse Oximetry 93 Oxygen Delivery Room Air Oxygen Flow Rate Intake/Output Intake/Output: Intake & Output 02/14/23 02/15/23 02/16/23 02/17/23 23:59 23:59 23:59 23:59 Intake Total 940 1910 Balance 940 1910 Meds/Results Medications: Active Medications Generic
[2023-02-17 11:50] LABS: Glucose Point of Care 183 mg/dl (65-105)
[2023-02-17] MEDS: methylPREDNISolone SOD SUCC 40 MG VIAL 20 MG IV PUSH ×2 (12:44→17:34)
[2023-02-17] MEDS: PERFLUTREN LIPID MICROSPHERES 1.5 ML VIAL DILUTED TO 10 ML TOTAL VOLUME IV PUSH (14:15)
--- NOTE | 2023-02-17 14:27 | IVDEFINITY ---
Prior to administration of IV Definity the patient was educated on the risks and benefits of the imaging enhancing agent including potential adverse side effects. The patient verbalized understanding. Allergies were verified. No exclusion criteria were identified and at least one of the following inclusion criteria were met: 1) physician request, 2) patient technically difficult to image (per the [place] [employer] guidelines of two or more segments not discernable within the apical view), or 3) questionable left ventricular function. ?
[2023-02-17 16:34] LABS: Glucose Point of Care 222 mg/dl (65-105)
[2023-02-17] MEDS: levoFLOXacin 750 MG/D5W 150 ML 750 MG/150 ML BAG 100 MG IVPB (17:32)
[2023-02-17] MEDS: MELATONIN 3 MG TABLET PO (20:11)
[2023-02-17 20:28] LABS: Glucose Point of Care 226 mg/dl (65-105)
[2023-02-18] VITALS (14 sets, daily range): BP systolic 122–127; BP diastolic 59–81; PULSE 81–94; RESP 12–20; TEMP 36.8–37.1; O2SAT 91–94
[2023-02-18] MEDS: methylPREDNISolone SOD SUCC 40 MG VIAL 20 MG IV PUSH ×2 (00:37→05:01)
[2023-02-18] MEDS: IPRATROPIUM BR 0.02% INH SOLN 0.5 MG/2.5 ML VIAL INHALATION ×5 (02:29→19:49)
[2023-02-18] MEDS: ALBUTEROL SULFATE NEB 2.5 MG/3 ML INH INHALATION ×5 (02:29→19:49)
[2023-02-18 07:58] LABS: Glucose Point of Care 206 mg/dl (65-105)
[2023-02-18] MEDS: MAGNESIUM OXIDE 400 MG TABLET PO (08:31)
[2023-02-18] MEDS: amLODIPine BESYLATE 5 MG TABLET 10 MG PO (08:31)
[2023-02-18] MEDS: LOSARTAN POTASSIUM 100 MG TABLET PO (08:31)
[2023-02-18] MEDS: metFORMIN HCL 500 MG TABLET PO ×2 (08:31→17:01)
[2023-02-18] MEDS: BENZONATATE 100 MG CAPSULE 200 MG PO ×3 (08:31→22:30)
[2023-02-18] MEDS: FAMOTIDINE 20 MG TABLET PO (08:31)
[2023-02-18] MEDS: hydrALAZINE HCL 25 MG TABLET PO ×2 (08:31→17:01)
[2023-02-18] MEDS: MULTIVITAMINS THERAPEUTIC TAB (*BKC) 1 TABLET PO (08:31)
[2023-02-18] MEDS: ENOXAPARIN 40 MG/0.4 ML SYRINGE SUB-Q (08:31)
[2023-02-18] MEDS: INSULIN ASPART (*BKC) 100 UNITS/ML SUB-Q (08:32)
--- NOTE | 2023-02-18 09:38 | PM.IMPN ---
Progress Note: A&P Assessment and Plan (1) Acute hypoxemic respiratory failure: Code(s): J96.01 - Acute respiratory failure with hypoxia Status: Acute Assessment and Plan: Recurrent admissions for shortness of breaths likely secondary to reactive airway disease versus postviral asthma vs tracheobronchitis, appreciate pulmonology consultation, recommend outpatient sleep study Improving on steroids, bronchodilators and Levaquin, vancomycin discontinued Echo showed an EF greater than 70% with grade 1 diastolic dysfunction as well as moderate pulmonary hypertension, no shunt noted CTA as well as upper and lower extremity Dopplers on negative for blood clots (2) Type 2 diabetes mellitus: Qualifiers: Diabetes mellitus complication status: without complication Diabetes mellitus halfway insulin use: without terminal operator use Qualified Code(s): E11.9 - Type 2 diabetes mellitus without complications Code(s): E11.9 - Type 2 diabetes mellitus without complications Status: Acute Assessment and Plan: Hypoglycemia protocol, Accu-Cheks, sliding scale insulin, A1C 6.1 on 02/04/23, hold metformin Blood glucose reviewed 02/18 Plan Chronic Conditions - insomnia r/t dyspnea: reports melatonin worked during last admission, restarted - continue amlodipine, famotidine, hydralazine, losartan, magnesium supplement, and multivitamin Diet: diabetic diet GI Prophylaxis: home famotidine continued DVT Prophylaxis: SCDs, Lovenox 40 Lines: pIV, midline x1 Code Status: full code, does not want extended life support. Subjective Date/time seen: 02/18/23 09:38 Interval history: 72-year-old with a history of morbid obesity, recurrent bouts of pneumonia-bronchitis since June of 2022, multiple admissions responding to steroids, antibiotics and Lasix presenting with recurrent shortness of breath, chronic cough and general malaise and currently being treated for possible postviral asthma. No overnight events noted. No chest pain. No nausea, vomiting or diarrhea. No fevers or chills. Cough is unchanged, difficulty sleeping secondary to it. Otherwise, she feels her breathing is a little better than yesterday. Review of Systems Review of Systems: 12 point review of systems was assessed and was negative except as noted in the HPI Exam Narrative: General: No acute distress, alert and oriented per baseline HEENT: Atraumatic, normocephalic, mucous membranes moist CV: Regular rate and rhythm, S1, S2 Lungs: Scattered expiratory and expiratory wheezes, no crackles, diminished at bases Abdomen: Soft, nontender, nondistended Extremities: Normal to inspection Skin: No rashes noted, no lesions or wounds seen Psych: Euthymic, normal affect Objective Data Vital Signs Vital Signs: Vital Signs - 24 hr 02/17/23 12:48 02/17/23 12:51 02/17/23 13:02 Temperature Pulse Rate 88 102 H Respiratory Rate 20 20 Blood Pressure Pulse Oximetry 91 Oxygen Delivery Room Air 02/17/23 14:00 02/17/23 16:50 02/17/23 17:02 Temperature 98.1 F Pulse Rate 100 99 95 Respiratory Rate 16 20 20 Blood Pressure 121/67 Pulse Oximetry 90 Oxygen Delivery 02/17/23 20:14 02/17/23 20:19 02/17/23 20:29 Temperature Pulse Rate 96 96 96 Respiratory Rate 20 20 Blood Pressure Pulse Oximetry 93 Oxygen Delivery Room Air 02/17/23 20:00 02/17/23 21:07 02/18/23 02:30 Temperature 98.0 F Pulse Rate 96 90 83 Respiratory Rate 20 14 20 Blood Pressure 126/40 L Pulse Oximetry 93 90 Oxygen Delivery Room Air 02/18/23 02:44 02/18/23 05:20 02/18/23 07:25 Temperature 98.5 F Pulse Rate 85 86 88 Respiratory Rate 20 12 20 Blood Pressure 127/66 Pulse Oximetry 94 Oxygen Delivery 02/18/23 07:26 Temperature Pulse Rate 88 Respiratory Rate Blood Pressure Pulse Oximetry 93 Oxygen Delivery Room Air Intake/Output Intake/Output: Intake & Output
[2023-02-18 10:31] LABS: Basophils Absolute Auto 0.1 K/mm3 (0.0-0.1); Basophils Percent Auto 0.3 % (0.2-1.2); Hematocrit 35.4 % (37.0-47.0); Hemoglobin 10.8 g/dL (12.0-15.0); Immature Granulocyte Absolute 0.21 K/mm3 (0.00-0.031); Immature Platelet Fraction Pct 7.4 % (0.9-11.2); Lymphocytes Absolute Auto 0.72 K/mm3 (0.9-3.2); Lymphocytes Percent Auto 3.4 % (18.3-44.2); Mean Corpuscular HGB Conc 30.5 g/dl (32-36); Mean Corpuscular Hemoglobin 26.6 pg (26-34); Mean Corpuscular Volume 87.2 fl (80-100); Mean Platelet Volume 11.3 fl (7.4-10.4); Monocytes Absolute Auto 0.7 K/mm3 (0.1-0.6); Monocytes Percent Auto 3.3 % (2.6-8.5); Neutrophils Absolute Auto 19.2 K/mm3 (1.3-6.7); Nucleated Red Blood Cells Perc 0.2 % (0.0-0.2); Platelet Count Result 266 k/mm3 (150-375); Red Blood Count 4.06 M/mm3 (4.2-5.4); Red Cell Distribution Width 17.3 % (11.5-14.5); White Blood Count 20.9 K/mm3 (4.5-10.0)
--- NOTE | 2023-02-18 11:03 | PM.PNPUL ---
Progress Note: A&P Assessment and Plan (1) Acute hypoxemic respiratory failure: Code(s): J96.01 - Acute respiratory failure with hypoxia Status: Acute (2) Leukocytosis: Qualifiers: Leukocytosis type: unspecified Qualified Code(s): D72.829 - Elevated white blood cell count, unspecified Code(s): D72.829 - Elevated white blood cell count, unspecified Status: Acute (3) Bronchitis: Code(s): J40 - Bronchitis, not specified as acute or chronic Status: Acute Assessment and Plan: Patient presented with hypoxemic respiratory failure, cough mostly productive shortness of breath. She has been treated for acute bronchitis. Her respiratory status has significantly improved. On physical exam she has mild expiratory wheezing, currently on room air, complaining of mild cough. She had no clear-cut evidence of pneumonia on the CT. She had mild atelectasis left upper lobe. Plan: Continue with current regimen of short-acting bronchodilators. Switched to oral steroids, and nebulized Pulmicort. Also incentive spirometry. (4) Obstructive sleep apnea: Code(s): G47.33 - Obstructive sleep apnea (adult) (pediatric) Status: Acute Subjective Date/time seen: 02/18/23 11:03 Interval history: Patient overall doing better. Continues to have chest congestion mild cough with no sputum production. Remains on room air. Review of Systems Review of Systems: All systems reviewed & are unremarkable except as noted in HPI and below (HPI and below) Exam Narrative: GENERAL APPEARANCE: Well developed, well nourished, alert and cooperative, and appears to be in no acute distress SKIN: Inspection of the skin reveals no rashes, ulcerations or petechiae. HEENT: Sclerae anicteric and conjunctivae pink and moist. Extraocular movements were intact and pupils were equal, round, and reactive to light. The oral mucosa, hard and soft palate, tongue and posterior pharynx were normal. NECK: Supple. There was no thyroid enlargement, and no tenderness, or masses were felt. CHEST: Normal AP diameter and normal contour without any kyphoscoliosis. LUNGS: Mild expiratory wheezing bilaterally CARDIAC: There was a regular rate and rhythm without any murmurs, gallops, rubs. ABDOMEN: Soft and nontender with normal bowel sounds. There was no organomegaly. LYMPH NODES: No lymphadenopathy was appreciated in the neck. EXTREMITIES: No cyanosis, clubbing or edema. NEUROLOGIC: Alert and oriented x 3. Normal affect. Objective Data Vital Signs Vital Signs: Vital Signs - 24 hr 02/17/23 12:48 02/17/23 12:51 02/17/23 13:02 Temperature Pulse Rate 88 102 H Respiratory Rate 20 20 Blood Pressure Pulse Oximetry 91 Oxygen Delivery Room Air 02/17/23 14:00 02/17/23 16:50 02/17/23 17:02 Temperature 36.7 C Pulse Rate 100 99 95 Respiratory Rate 16 20 20 Blood Pressure 121/67 Pulse Oximetry 90 Oxygen Delivery 02/17/23 20:14 02/17/23 20:19 02/17/23 20:29 Temperature Pulse Rate 96 96 96 Respiratory Rate 20 20 Blood Pressure Pulse Oximetry 93 Oxygen Delivery Room Air 02/17/23 20:00 02/17/23 21:07 02/18/23 02:30 Temperature 36.7 C Pulse Rate 96 90 83 Respiratory Rate 20 14 20 Blood Pressure 126/40 L Pulse Oximetry 93 90 Oxygen Delivery Room Air 02/18/23 02:44 02/18/23 05:20 02/18/23 07:25 Temperature 36.9 C Pulse Rate 85 86 88 Respiratory Rate 20 12 20 Blood Pressure 127/66 Pulse Oximetry 94 Oxygen Delivery 02/18/23 07:26 02/18/23 08:30 Temperature Pulse Rate 88 Respiratory Rate Blood Pressure Pulse Oximetry 93 92 Oxygen Delivery Room Air Room Air Intake/Output Intake/Output: Intake & Output 02/15/23 02/16/23 02/17/23 02/18/23 23:59 23:59 23:59 23:59 Intake Total 940 3540 1500 Balance 940 3540 1500 Meds/Results Medications: Active Medications Generic Name Dose Route Start Last Admin Trade Name Freq
[2023-02-18 11:40] LABS: Alanine Aminotransferase 26 U/L (6-35); Albumin Level 4.1 g/dL (3.5-5.1); Alkaline Phosphatase 75 U/L (38-126); Anion Gap 9 mmol/L (8-16); Aspartate Amino Transferase 25 U/L (14-36); Bilirubin,Total 0.4 mg/dL (0.2-1.3); Blood Urea Nitrogen 25 mg/dL (7-17); Calcium 9.7 mg/dL (8.4-10.2); Carbon Dioxide 26 mmol/L (22-30); Chloride 101 mmol/L (98-107); Estimated CRCL calculation 73 ml/min; Estimated Glomerular Filt Rate > 60; Glucose 199 mg/dL (65-110); Potassium 4.4 mmol/L (3.4-5.0); Sodium 136 mmol/L (137-145)
[2023-02-18 12:12] LABS: Glucose Point of Care 196 mg/dl (65-105)
[2023-02-18] MEDS: predniSONE 20 MG TABLET 40 MG PO (12:34)
[2023-02-18] MEDS: levoFLOXacin 750 MG/D5W 150 ML 750 MG/150 ML BAG 100 MG IVPB (16:59)
[2023-02-18 17:24] LABS: Glucose Point of Care 170 mg/dl (65-105)
[2023-02-18] MEDS: BUDESONIDE RESPULE NEB 0.5 MG/2 ML AMP INHALATION (19:48)
[2023-02-18] MEDS: MELATONIN 3 MG TABLET PO (20:22)
[2023-02-18 21:18] LABS: Glucose Point of Care 178 mg/dl (65-105)
[2023-02-19] VITALS (14 sets, daily range): BP systolic 122–140; BP diastolic 65–76; PULSE 79–95; RESP 16–20; TEMP 36.2–36.8; O2SAT 92–97
[2023-02-19] MEDS: IPRATROPIUM BR 0.02% INH SOLN 0.5 MG/2.5 ML VIAL INHALATION ×5 (01:13→20:43)
[2023-02-19] MEDS: ALBUTEROL SULFATE NEB 2.5 MG/3 ML INH INHALATION ×5 (01:13→20:45)
[2023-02-19 06:30] LABS: Basophils Percent Auto 0.2 % (0.2-1.2); Hematocrit 39.1 % (37.0-47.0); Hemoglobin 12.2 g/dL (12.0-15.0); Immature Granulocyte Absolute 0.24 K/mm3 (0.00-0.031); Immature Granulocyte Percent A 1.1 % (0-0.5); Lymphocytes Percent Auto 9.9 % (18.3-44.2); Mean Corpuscular HGB Conc 31.2 g/dl (32-36); Mean Corpuscular Hemoglobin 26.3 pg (26-34); Mean Corpuscular Volume 84.3 fl (80-100); Mean Platelet Volume 9.7 fl (7.4-10.4); Monocytes Absolute Auto 1.6 K/mm3 (0.1-0.6); Monocytes Percent Auto 7.3 % (2.6-8.5); Neutrophils Absolute Auto 17.3 K/mm3 (1.3-6.7); Neutrophils Percent Auto 81.5 % (45.5-73.1); Platelet Count Result 370 k/mm3 (150-375); Red Blood Count 4.64 M/mm3 (4.2-5.4); Red Cell Distribution Width 17.4 % (11.5-14.5); White Blood Count 21.3 K/mm3 (4.5-10.0)
[2023-02-19 06:57] LABS: Alanine Aminotransferase 23 U/L (6-35); Albumin Level 4.1 g/dL (3.5-5.1); Alkaline Phosphatase 74 U/L (38-126); Anion Gap 7 mmol/L (8-16); Aspartate Amino Transferase 22 U/L (14-36); Bilirubin,Total 0.5 mg/dL (0.2-1.3); Blood Urea Nitrogen 29 mg/dL (7-17); Calcium 9.6 mg/dL (8.4-10.2); Carbon Dioxide 27 mmol/L (22-30); Chloride 102 mmol/L (98-107); Estimated CRCL calculation 74 ml/min; Estimated Glomerular Filt Rate > 60; Glucose 150 mg/dL (65-110); Potassium 4.3 mmol/L (3.4-5.0); Sodium 136 mmol/L (137-145)
[2023-02-19] MEDS: BUDESONIDE RESPULE NEB 0.5 MG/2 ML AMP INHALATION ×2 (07:41→20:45)
[2023-02-19 08:05] LABS: Glucose Point of Care 147 mg/dl (65-105)
[2023-02-19] MEDS: ENOXAPARIN 40 MG/0.4 ML SYRINGE SUB-Q (08:33)
[2023-02-19] MEDS: BENZONATATE 100 MG CAPSULE 200 MG PO ×3 (08:34→16:42)
[2023-02-19] MEDS: MULTIVITAMINS THERAPEUTIC TAB (*BKC) 1 TABLET PO (08:34)
[2023-02-19] MEDS: FAMOTIDINE 20 MG TABLET PO (08:34)
[2023-02-19] MEDS: amLODIPine BESYLATE 5 MG TABLET 10 MG PO (08:34)
[2023-02-19] MEDS: MAGNESIUM OXIDE 400 MG TABLET PO (08:34)
[2023-02-19] MEDS: metFORMIN HCL 500 MG TABLET PO ×2 (08:34→16:42)
[2023-02-19] MEDS: hydrALAZINE HCL 25 MG TABLET PO ×2 (08:34→16:42)
[2023-02-19] MEDS: predniSONE 20 MG TABLET 40 MG PO (08:34)
[2023-02-19] MEDS: LOSARTAN POTASSIUM 100 MG TABLET PO (08:34)
--- NOTE | 2023-02-19 09:43 | PM.PNPUL ---
Progress Note: A&P Assessment and Plan (1) Acute hypoxemic respiratory failure: Code(s): J96.01 - Acute respiratory failure with hypoxia Status: Acute (2) Leukocytosis: Qualifiers: Leukocytosis type: unspecified Qualified Code(s): D72.829 - Elevated white blood cell count, unspecified Code(s): D72.829 - Elevated white blood cell count, unspecified Status: Acute (3) Bronchitis: Code(s): J40 - Bronchitis, not specified as acute or chronic Status: Acute Assessment and Plan: Patient presented with hypoxemic respiratory failure, cough mostly productive shortness of breath. She has been treated for acute bronchitis. Her respiratory status has significantly improved. On physical exam she has mild expiratory wheezing, currently on room air, complaining of mild cough. She had no clear-cut evidence of pneumonia on the CT. She had mild atelectasis left upper lobe. Little or no improvement over the last 24 hours. Plan: Continue with current regimen of short-acting bronchodilators, oral steroids nebulized Pulmicort incentive spirometry. Repeat chest x-ray in a.m. (4) Obstructive sleep apnea: Code(s): G47.33 - Obstructive sleep apnea (adult) (pediatric) Status: Acute Subjective Date/time seen: 02/19/23 09:43 Interval history: Patient doing little better. She continues to cough. Also wheezing. Remains on room air Review of Systems Review of Systems: All systems reviewed & are unremarkable except as noted in HPI and below (HPI and below) Exam Narrative: GENERAL APPEARANCE: Well developed, well nourished, alert and cooperative, and appears to be in no acute distress SKIN: Inspection of the skin reveals no rashes, ulcerations or petechiae. HEENT: Sclerae anicteric and conjunctivae pink and moist. Extraocular movements were intact and pupils were equal, round, and reactive to light. The oral mucosa, hard and soft palate, tongue and posterior pharynx were normal. NECK: Supple. There was no thyroid enlargement, and no tenderness, or masses were felt. CHEST: Normal AP diameter and normal contour without any kyphoscoliosis. LUNGS: Mild expiratory wheezing bilaterally CARDIAC: There was a regular rate and rhythm without any murmurs, gallops, rubs. ABDOMEN: Soft and nontender with normal bowel sounds. There was no organomegaly. LYMPH NODES: No lymphadenopathy was appreciated in the neck. EXTREMITIES: No cyanosis, clubbing or edema. NEUROLOGIC: Alert and oriented x 3. Normal affect. Objective Data Vital Signs Vital Signs: Vital Signs - 24 hr 02/18/23 11:23 02/18/23 15:05 02/18/23 14:00 Temperature 37.1 C Pulse Rate 90 88 81 Respiratory Rate 20 20 18 Blood Pressure 122/81 Pulse Oximetry 94 Oxygen Delivery 02/18/23 19:49 02/18/23 19:56 02/18/23 20:18 Temperature Pulse Rate 94 94 90 Respiratory Rate 20 20 Blood Pressure Pulse Oximetry 91 Oxygen Delivery Room Air 02/18/23 20:00 02/18/23 21:21 02/19/23 01:14 Temperature 36.8 C Pulse Rate 91 91 Respiratory Rate 18 20 Blood Pressure 123/59 L Pulse Oximetry 91 93 Oxygen Delivery Room Air 02/19/23 01:25 02/19/23 06:00 02/19/23 07:41 Temperature 36.8 C Pulse Rate 89 80 79 Respiratory Rate 20 18 16 Blood Pressure 137/76 Pulse Oximetry 92 Oxygen Delivery 02/19/23 07:56 02/19/23 08:30 Temperature Pulse Rate 80 Respiratory Rate 16 Blood Pressure Pulse Oximetry Oxygen Delivery Room Air Intake/Output Intake/Output: Intake & Output 02/16/23 02/17/23 02/18/23 02/19/23 23:59 23:59 23:59 23:59 Intake Total 940 3540 4610 1147 Balance 940 3540 4610 1147 Meds/Results Medications: Active Medications Generic Name Dose Route Start Last Admin Trade Name Jose Cruzq PRN Reason Stop Dose Admin Acetaminophen 650 mg 02/16/23 14:36 02/16/23 15:08 Acetaminophen 325 Mg Tablet PO 650 mg Q4H PRN Administration Mild Pain (1-3
[2023-02-19 11:32] LABS: Glucose Point of Care 137 mg/dl (65-105)
--- NOTE | 2023-02-19 12:27 | PM.IMPN ---
Progress Note: A&P Assessment and Plan (1) Acute hypoxemic respiratory failure: Code(s): J96.01 - Acute respiratory failure with hypoxia Status: Acute Assessment and Plan: Recurrent admissions for shortness of breaths likely secondary to reactive airway disease versus postviral asthma vs tracheobronchitis, appreciate pulmonology consultation, recommend outpatient sleep study Improving on steroids, bronchodilators and Levaquin, vancomycin discontinued Echo showed an EF greater than 70% with grade 1 diastolic dysfunction as well as moderate pulmonary hypertension, no shunt noted CTA as well as upper and lower extremity Dopplers on negative for blood clots Continue current management, symptoms improving, discharged soon (2) Type 2 diabetes mellitus: Qualifiers: Diabetes mellitus [facility] insulin use: without [facility] use Diabetes mellitus complication status: without complication Qualified Code(s): E11.9 - Type 2 diabetes mellitus without complications Code(s): E11.9 - Type 2 diabetes mellitus without complications Status: Acute Assessment and Plan: Hypoglycemia protocol, Accu-Cheks, sliding scale insulin, A1C 6.1 on 02/04/23, hold metformin Blood glucose reviewed 02/19 Plan Chronic Conditions - insomnia r/t dyspnea: reports melatonin worked during last admission, restarted - continue amlodipine, famotidine, hydralazine, losartan, magnesium supplement, and multivitamin Diet: diabetic diet GI Prophylaxis: home famotidine continued DVT Prophylaxis: SCDs, Lovenox 40 Lines: pIV, midline x1 Code Status: full code, does not want extended life support. Subjective Date/time seen: 02/19/23 12:27 Interval history: 72-year-old with a history of morbid obesity, recurrent bouts of pneumonia-bronchitis since June of 2022, multiple admissions responding to steroids, antibiotics and Lasix presenting with recurrent shortness of breath, chronic cough and general malaise and currently being treated for possible postviral asthma. No overnight events noted. No chest pain. No nausea, vomiting or diarrhea. No fevers or chills. Cough is unchanged, difficulty sleeping secondary to it. Continues to improve, requesting sleep medicine for tonight. Melatonin last night only helped a little. Review of Systems Review of Systems: 12 point review of systems was assessed and was negative except as noted in the HPI Exam Narrative: General: No acute distress, alert and oriented per baseline HEENT: Atraumatic, normocephalic, mucous membranes moist CV: Regular rate and rhythm, S1, S2 Lungs: Some scattered expiratory wheezes, good air entry, diminished at bases Abdomen: Soft, nontender, nondistended Extremities: Normal to inspection Skin: No rashes noted, no lesions or wounds seen Psych: Euthymic, normal affect Objective Data Vital Signs Vital Signs: Vital Signs - 24 hr 02/18/23 15:05 02/18/23 14:00 02/18/23 19:49 Temperature 98.8 F Pulse Rate 88 81 94 Respiratory Rate 20 18 20 Blood Pressure 122/81 Pulse Oximetry 94 Oxygen Delivery 02/18/23 19:56 02/18/23 20:18 02/18/23 20:00 Temperature Pulse Rate 94 90 Respiratory Rate 20 Blood Pressure Pulse Oximetry 91 91 Oxygen Delivery Room Air Room Air 02/18/23 21:21 02/19/23 01:14 02/19/23 01:25 Temperature 98.2 F Pulse Rate 91 91 89 Respiratory Rate 18 20 20 Blood Pressure 123/59 L Pulse Oximetry 93 Oxygen Delivery 02/19/23 06:00 02/19/23 07:41 02/19/23 07:56 Temperature 98.2 F Pulse Rate 80 79 80 Respiratory Rate 18 16 16 Blood Pressure 137/76 Pulse Oximetry 92 Oxygen Delivery 02/19/23 08:30 02/19/23 11:31 02/19/23 11:37 Temperature Pulse Rate 80 80 Respiratory Rate 16 16 Blood Pressure Pulse Oximetry Oxygen Delivery Room Air Intake/Output Intake/Output: Intake & Output 02/16/23 02/17/23 02/18/23 02/19/23 23:59 23:59
[2023-02-19 16:27] LABS: Glucose Point of Care 157 mg/dl (65-105)
[2023-02-19] MEDS: levoFLOXacin 750 MG/D5W 150 ML 750 MG/150 ML BAG 100 MG IVPB (16:42)
[2023-02-19] MEDS: TEMAZEPAM (*CRX) 15 MG CAPSULE PO (20:36)
[2023-02-19] MEDS: MELATONIN 3 MG TABLET PO (20:37)
[2023-02-19] MEDS: guaiFENesin/DEXTROMETHORPHAN 10 ML UDC PO (20:37)
[2023-02-19] MEDS: ACETAMINOPHEN 325 MG TABLET 650 MG PO (20:40)
[2023-02-19 20:54] LABS: Glucose Point of Care 155 mg/dl (65-105)
[2023-02-19 23:06] LABS: Pneumococcal Antigen Urine Not Detected (Not Detected)
[2023-02-20] VITALS (9 sets, daily range): BP systolic 126–155; BP diastolic 69–87; PULSE 67–88; RESP 18–20; TEMP 36.2–36.4; O2SAT 91–93
[2023-02-20 06:28] LABS: Basophils Percent Auto 0.3 % (0.2-1.2); Eosinophils Absolute Auto 0.1 K/mm3 (0-0.3); Eosinophils Percent Auto 0.5 % (0-4.4); Hematocrit 40.6 % (37.0-47.0); Hemoglobin 12.3 g/dL (12.0-15.0); Immature Granulocyte Absolute 0.16 K/mm3 (0.00-0.031); Lymphocytes Absolute Auto 4.22 K/mm3 (0.9-3.2); Lymphocytes Percent Auto 26.8 % (18.3-44.2); Mean Corpuscular HGB Conc 30.3 g/dl (32-36); Mean Corpuscular Hemoglobin 26.4 pg (26-34); Mean Corpuscular Volume 87.1 fl (80-100); Mean Platelet Volume 9.7 fl (7.4-10.4); Monocytes Absolute Auto 1.5 K/mm3 (0.1-0.6); Monocytes Percent Auto 9.4 % (2.6-8.5); Neutrophils Absolute Auto 9.8 K/mm3 (1.3-6.7); Platelet Count Result 344 k/mm3 (150-375); Red Blood Count 4.66 M/mm3 (4.2-5.4); Red Cell Distribution Width 17.3 % (11.5-14.5); White Blood Count 15.7 K/mm3 (4.5-10.0)
[2023-02-20 06:36] LABS: Legionella pneumophila Ag Ur Not Detected (Not Detected)
[2023-02-20 06:43] LABS: Alanine Aminotransferase 21 U/L (6-35); Alkaline Phosphatase 72 U/L (38-126); Anion Gap 9 mmol/L (8-16); Aspartate Amino Transferase 23 U/L (14-36); Bilirubin,Total 0.7 mg/dL (0.2-1.3); Blood Urea Nitrogen 25 mg/dL (7-17); Calcium 9.2 mg/dL (8.4-10.2); Carbon Dioxide 27 mmol/L (22-30); Chloride 102 mmol/L (98-107); Estimated CRCL calculation 66 ml/min; Estimated Glomerular Filt Rate > 60; Glucose 95 mg/dL (65-110); Potassium 4.1 mmol/L (3.4-5.0); Sodium 138 mmol/L (137-145)
[2023-02-20] MEDS: IPRATROPIUM BR 0.02% INH SOLN 0.5 MG/2.5 ML VIAL INHALATION ×3 (07:00→15:00)
[2023-02-20] MEDS: ALBUTEROL SULFATE NEB 2.5 MG/3 ML INH INHALATION ×3 (07:01→15:00)
[2023-02-20] MEDS: BUDESONIDE RESPULE NEB 0.5 MG/2 ML AMP INHALATION (07:01)
[2023-02-20 07:40] LABS: Glucose Point of Care 110 mg/dl (65-105)
--- NOTE | 2023-02-20 08:44 | PM.PNPUL ---
Progress Note: A&P Assessment and Plan (1) Acute hypoxemic respiratory failure: Code(s): J96.01 - Acute respiratory failure with hypoxia Status: Acute (2) Leukocytosis: Qualifiers: Leukocytosis type: unspecified Qualified Code(s): D72.829 - Elevated white blood cell count, unspecified Code(s): D72.829 - Elevated white blood cell count, unspecified Status: Acute (3) Bronchitis: Code(s): J40 - Bronchitis, not specified as acute or chronic Status: Acute Assessment and Plan: Patient presented with hypoxemic respiratory failure, cough mostly productive shortness of breath. She has been treated for acute bronchitis. Her respiratory status has significantly improved. On physical exam she has few rhonchi no significant expiratory wheezing, currently on room air, still complaining of cough, productive of small amount of sputum. She had no clear-cut evidence of pneumonia on the CT. She had mild atelectasis left upper lobe. Chest x-ray showed no new infiltrates, probably discoid atelectasis Plan: Continue with current regimen of short-acting bronchodilators, oral steroids nebulized Pulmicort incentive spirometry. Switched patient to a PPI for history of acid reflux disease. (4) Obstructive sleep apnea: Code(s): G47.33 - Obstructive sleep apnea (adult) (pediatric) Status: Acute Subjective Date/time seen: 02/20/23 08:44 Interval history: Continues to have spells of cough especially at night. She requested sleeping aid last night. No other new respiratory symptoms. Remains on room air. Review of Systems Review of Systems: All systems reviewed & are unremarkable except as noted in HPI and below (HPI and below) Exam Narrative: GENERAL APPEARANCE: Well developed, well nourished, alert and cooperative, and appears to be in no acute distress SKIN: Inspection of the skin reveals no rashes, ulcerations or petechiae. HEENT: Sclerae anicteric and conjunctivae pink and moist. Extraocular movements were intact and pupils were equal, round, and reactive to light. The oral mucosa, hard and soft palate, tongue and posterior pharynx were normal. NECK: Supple. There was no thyroid enlargement, and no tenderness, or masses were felt. CHEST: Normal AP diameter and normal contour without any kyphoscoliosis. LUNGS: Few rhonchi bilaterally no wheezing CARDIAC: There was a regular rate and rhythm without any murmurs, gallops, rubs. ABDOMEN: Soft and nontender with normal bowel sounds. There was no organomegaly. LYMPH NODES: No lymphadenopathy was appreciated in the neck. EXTREMITIES: No cyanosis, clubbing or edema. NEUROLOGIC: Alert and oriented x 3. Normal affect. Objective Data Vital Signs Vital Signs: Vital Signs - 24 hr 02/19/23 11:31 02/19/23 11:37 02/19/23 14:00 Temperature 36.7 C Pulse Rate 80 80 95 Respiratory Rate 16 16 18 Blood Pressure 140/65 Pulse Oximetry 92 Oxygen Delivery 02/19/23 16:05 02/19/23 16:13 02/19/23 20:46 Temperature Pulse Rate 95 95 81 Respiratory Rate 16 16 18 Blood Pressure Pulse Oximetry Oxygen Delivery 02/19/23 21:06 02/19/23 20:00 02/19/23 22:00 Temperature 36.2 C L Pulse Rate 86 87 Respiratory Rate 18 20 Blood Pressure 122/71 Pulse Oximetry 92 97 Oxygen Delivery Room Air 02/20/23 06:00 02/20/23 07:00 02/20/23 07:00 Temperature 36.2 C L Pulse Rate 82 67 67 Respiratory Rate 20 18 18 Blood Pressure 155/87 H Pulse Oximetry 93 92 Oxygen Delivery Room Air 02/20/23 07:10 Temperature Pulse Rate 72 Respiratory Rate 18 Blood Pressure Pulse Oximetry Oxygen Delivery Intake/Output Intake/Output: Intake & Output 02/17/23 02/18/23 02/19/23 02/20/23 23:59 23:59 23:59 23:59 Intake Total 3540 4610 1777 1000 Balance 3540 4610 1777 1000 Meds/Results Medications: Active Medications Generic Name Dose Route Start Last Admin Trade Name Freq PRN Reason Stop D
[2023-02-20] MEDS: MULTIVITAMINS THERAPEUTIC TAB (*BKC) 1 TABLET PO (09:18)
[2023-02-20] MEDS: MAGNESIUM OXIDE 400 MG TABLET PO (09:18)
[2023-02-20] MEDS: amLODIPine BESYLATE 5 MG TABLET 10 MG PO (09:18)
[2023-02-20] MEDS: PANTOPRAZOLE 40 MG TABLET PO (09:18)
[2023-02-20] MEDS: predniSONE 20 MG TABLET 40 MG PO (09:18)
[2023-02-20] MEDS: metFORMIN HCL 500 MG TABLET PO (09:18)
[2023-02-20] MEDS: LOSARTAN POTASSIUM 100 MG TABLET PO (09:18)
[2023-02-20] MEDS: ENOXAPARIN 40 MG/0.4 ML SYRINGE SUB-Q (09:19)
[2023-02-20] MEDS: hydrALAZINE HCL 25 MG TABLET PO (09:19)
[2023-02-20] MEDS: guaiFENesin/DEXTROMETHORPHAN 10 ML UDC PO ×2 (09:20→12:55)
--- NOTE | 2023-02-20 11:10 | PM.DS ---
DS: Admitting Diagnosis Discharge Date 02/20/23 Admitting Diagnosis sob DS: Discharge Diagnosis Discharge Diagnosis (1) Acute hypoxemic respiratory failure: Code(s): J96.01 - Acute respiratory failure with hypoxia Status: Acute Assessment and Plan: Recurrent admissions for shortness of breaths likely secondary to reactive airway disease versus postviral asthma vs tracheobronchitis, appreciate pulmonology consultation, recommend outpatient sleep study Improving on steroids, bronchodilators and Levaquin, vancomycin discontinued Echo showed an EF greater than 70% with grade 1 diastolic dysfunction as well as moderate pulmonary hypertension, no shunt noted CTA as well as upper and lower extremity Dopplers on negative for blood clots Continue current management, symptoms improving, discharged soon (2) Type 2 diabetes mellitus: Qualifiers: Diabetes mellitus complication status: without complication Diabetes mellitus care home insulin use: 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 Qualified Code(s): E11.9 - Type 2 diabetes mellitus without complications Code(s): E11.9 - Type 2 diabetes mellitus without complications Status: Acute Assessment and Plan: Hypoglycemia protocol, Accu-Cheks, sliding scale insulin, A1C 6.1 on 02/04/23, hold metformin Blood glucose reviewed 02/19 Plan Chronic Conditions - insomnia r/t dyspnea: reports melatonin worked during last admission, restarted - continue amlodipine, famotidine, hydralazine, losartan, magnesium supplement, and multivitamin Diet: diabetic diet GI Prophylaxis: home famotidine continued DVT Prophylaxis: SCDs, Lovenox 40 Lines: pIV, midline x1 Code Status: full code, does not want extended life support. DS: Summary Hospital Course Hospital Course: 72-year-old with a history of morbid obesity, recurrent bouts of pneumonia-bronchitis since June of 2022, multiple admissions responding to steroids, antibiotics and Lasix presenting with recurrent shortness of breath, chronic cough and general malaise and currently being treated for possible postviral asthma. No overnight events noted.? No chest pain.? No nausea, vomiting or diarrhea.? No fevers or chills.? Cough is unchanged, difficulty sleeping secondary to it.? Continues to improve, requesting sleep medicine for tonight.? Melatonin last night only helped a little. Recurrent admissions for shortness of breaths likely secondary to reactive airway disease versus postviral asthma vs tracheobronchitis, appreciate pulmonology consultation, recommend outpatient sleep study Improving on steroids, bronchodilators and Levaquin, vancomycin discontinued Echo showed an EF greater than 70% with grade 1 diastolic dysfunction as well as moderate pulmonary hypertension, no shunt noted CTA as well as upper and lower extremity Dopplers on negative for blood clots Continue current management, symptoms improving Appreciate pulmonology consultation. Please see above and med rec for details. Patient was discharged in stable condition with close outpatient follow-up. Time Spent with Patient Time attestation: Total time spent providing and/or coordinating discharge services: Exam Narrative: General: No acute distress, alert and oriented per baseline HEENT: Atraumatic, normocephalic, mucous membranes moist CV: Regular rate and rhythm, S1, S2 Lungs: Some scattered expiratory wheezes, good air entry, diminished at bases Abdomen: Soft, nontender, nondistended Extremities: Normal to inspection Skin: No rashes noted, no lesions or wounds seen Psych: Euthymic, normal affect DS: Data Data Completed and Pending Labs on day of discharge: Labs from last 24 hours 02/20/23 02/20/23 02/19/23 07:38 06:07 20:49 WBC 15.7 H RBC 4.66 Hgb 12.3 Hct 40.6 MCV 87.1 MCH 26.4 MCHC 30.3 L RDW 17.3 H Plt Count 344 MPV 9.7 Immature Gran % (Auto) 1.0 H Neut % (Auto) 62.0 Lymph %
[2023-02-20 11:29] LABS: Glucose Point of Care 103 mg/dl (65-105)
[2023-02-20] MEDS: BENZONATATE 100 MG CAPSULE 200 MG PO (12:05)
[2023-02-20 14:22] LABS: Mycoplasma IgM Antibody Titer 15 U/mL (<770)
[2023-02-21 04:28] LABS: Adenovirus DNA Not Detected (Not Detected); Chlamydophila pneumoniae Not Detected (Not Detected); Coronavirus 229E Not Detected (Not Detected); Coronavirus HKU1 Not Detected (Not Detected); Coronavirus NL63 Not Detected (Not Detected); Coronavirus OC43 Not Detected (Not Detected); Human Metapneumovirus Not Detected (Not Detected); Human Parainfluenza Virus 1 Not Detected (Not Detected); Human Parainfluenza Virus 2 Not Detected (Not Detected); Human Parainfluenza Virus 3 Not Detected (Not Detected); Human Parainfluenza Virus 4 Not Detected (Not Detected); Human RSV B Not Detected (Not Detected); Influenza A Not Detected (Not Detected); Influenza B Not Detected (Not Detected); Mycoplasma pneumoniae Not Detected (Not Detected); Rhinovirus/Enterovirus Detected (Not Detected)
== END 2023-02-20 17:13 | disposition home or self-care (01) | DRG 189 ==
LOC: ANHED 07:16 → ANH3MEDSUR 08:54
PROVIDERS: Student in an Organized Health Care Education/Training Program; Admitting Provider Student in an Organized Health Care Education/Training Program; Emergency Provider Student in an Organized Health Care Education/Training Program; PCP Nurse Practitioner Family; Visit Provider Student in an Organized Health Care Education/Training Program
DX: J96.01 Acute respiratory failure with hypoxia (principal); Z68.42 Body mass index [BMI] 45.0-49.9, adult; J93.9 Pneumothorax, unspecified; J20.9 Acute bronchitis, unspecified; D64.9 Anemia, unspecified; I10 Essential (primary) hypertension; D72.829 Elevated white blood cell count, unspecified; E11.9 Type 2 diabetes mellitus without complications; E66.01 Morbid (severe) obesity due to excess calories; G47.33 Obstructive sleep apnea (adult) (pediatric); I27.20 Pulmonary hypertension, unspecified; J45.909 Unspecified asthma, uncomplicated; Z87.01 Personal history of pneumonia (recurrent); Z23 Encounter for immunization; Z79.84 Long term (current) use of oral hypoglycemic drugs; Z20.822 Contact with and (suspected) exposure to COVID-19; Z90.49 Acquired absence of other specified parts of digestive tract; Z96.653 Presence of artificial knee joint, bilateral; Z98.49 Cataract extraction status, unspecified eye; Z96.1 Presence of intraocular lens; Z90.710 Acquired absence of both cervix and uterus; Z85.828 Personal history of other malignant neoplasm of skin
CPT/HCPCS: 36415; 36600; 71045; 71046; 71275; 80048; 80053; 82805; 82948; 83605; 83880; 84145; 84484; 85025; 85027; 85055; 85380; 86140; 86738; 87040; 87081; 87449; 87633; 87637; 87641; 87899; 90471; 90694; 93005; 93970; 94640; 96375; 99285; A9270; C8929; G0008; J1650; J1815; J1956; J2920; J2930; J3370; J7512; Q9957; Q9967

== ENCOUNTER 2023-03-10 07:04 | Outpatient (CLI) | payer OTHER, SELFPAY ==
[2023-03-10 07:48] LABS: Basophils Absolute Auto 0.1 K/mm3 (0.0-0.1); Basophils Percent Auto 0.5 % (0.2-1.2); Eosinophils Absolute Auto 0.8 K/mm3 (0-0.3); Eosinophils Percent Auto 6.9 % (0-4.4); Hematocrit 42.1 % (37.0-47.0); Hemoglobin 13.1 g/dL (12.0-15.0); Immature Granulocyte Absolute 0.06 K/mm3 (0.00-0.031); Immature Granulocyte Percent A 0.5 % (0-0.5); Lymphocytes Absolute Auto 2.23 K/mm3 (0.9-3.2); Lymphocytes Percent Auto 19.1 % (18.3-44.2); Mean Corpuscular HGB Conc 31.1 g/dl (32-36); Mean Corpuscular Hemoglobin 26.4 pg (26-34); Mean Corpuscular Volume 84.9 fl (80-100); Mean Platelet Volume 9.8 fl (7.4-10.4); Monocytes Absolute Auto 0.7 K/mm3 (0.1-0.6); Monocytes Percent Auto 6.3 % (2.6-8.5); Neutrophils Absolute Auto 7.8 K/mm3 (1.3-6.7); Neutrophils Percent Auto 66.7 % (45.5-73.1); Platelet Count Result 390 k/mm3 (150-375); Red Blood Count 4.96 M/mm3 (4.2-5.4); Red Cell Distribution Width 16.6 % (11.5-14.5); White Blood Count 11.7 K/mm3 (4.5-10.0)
[2023-03-10 07:52] LABS: Alanine Aminotransferase 18 U/L (6-35); Albumin Level 4.2 g/dL (3.5-5.1); Alkaline Phosphatase 94 U/L (38-126); Anion Gap 10 mmol/L (8-16); Aspartate Amino Transferase 23 U/L (14-36); Bilirubin,Total 0.7 mg/dL (0.2-1.3); Blood Urea Nitrogen 15 mg/dL (7-17); Calcium 9.3 mg/dL (8.4-10.2); Carbon Dioxide 27 mmol/L (22-30); Chloride 102 mmol/L (98-107); Estimated Glomerular Filt Rate > 60; Glucose 109 mg/dL (65-110); Potassium 4.2 mmol/L (3.4-5.0); Sodium 139 mmol/L (137-145)
[2023-03-10 10:02] LABS: Hemoglobin A1C 6.3 % (<5.7)
== END 2023-03-10 07:05 | disposition home or self-care (01) ==
PROVIDERS: PCP Nurse Practitioner Family; Visit Provider Nurse Practitioner Family
DX: I10 Essential (primary) hypertension (principal); E11.9 Type 2 diabetes mellitus without complications; D72.829 Elevated white blood cell count, unspecified
CPT/HCPCS: 36415; 80053; 83036; 85025

== ENCOUNTER 2023-04-04 09:05 | Outpatient (CLI) | payer OTHER, SELFPAY ==
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
== END 2023-04-05 05:14 | disposition home or self-care (01) ==
LOC: ANHCSM 09:05
PROVIDERS: PCP Nurse Practitioner Family; Visit Provider Physician Assistant
DX: G47.33 Obstructive sleep apnea (adult) (pediatric) (principal)
CPT/HCPCS: 95811